=== PATIENT | male | born 1965 | race Caucasian/White ===

== ENCOUNTER 2017-11-19 21:11 | Emergency (ER) | payer OTHER ==
--- NOTE | 2017-11-19 22:32 | ED ---
Back Pain HPI - General Chief Complaint: Back Pain/Injury Stated Complaint: Back Pain Time Seen by Provider: 11/19/17 22:02 Source: patient Limitations: no limitations - History of Present Illness Initial Comments: 52-year-old male patient presents to the emergency department today with complaints of right lower back pain with radiation down the right leg. Patient states that the pain started around the end of September. He states that he was seen in urgent care on 10/23/2017 and diagnosed with a lipoma to the right lower back. He states that the urgent care physician told him that this presses on his sciatic nerve and he would have to have surgery. He states that he has been taking naproxen for pain control however it is not helping. Patient states he has basically been in bed for the last week due to the pain. He states that he was standing up at the sink today and the pain was so bad that he nearly fell. He denies any numbness or tingling in the lower extremities. Denies any saddle anesthesia. Denies any loss of bowel or bladder control. He states he does have an appointment with his primary care physician on 11/22/2017. Patient denies any recent rash, fever, chills, shortness breath, chest pain, abdominal pain, nausea, vomiting, diarrhea, constipation, dizziness, weakness, hematuria, dysuria, urinary urgency, urinary frequency, headache, visual changes, or any other complaints. - Related Data Previous Rx's Medication Instructions Recorded Cyclobenzaprine [Flexeril] 10 mg PO TID #15 tab 11/19/17 Hydrocodone/Acetaminophen [[place] 1 tab PO Q6HR PRN #15 tab 11/19/17 5-325] Allergies Allergy/AdvReac Type Severity Reaction Status Date / Time No Known Allergies Allergy Verified 11/19/17 22:33 Review of Systems ROS Statement: Those systems with pertinent positive or pertinent negative responses have been documented in the HPI. ROS Other: All systems not noted in ROS Statement are negative. Past Medical History Past Medical History: No Reported History History of Any Multi-Drug Resistant Organisms: None Reported Past Surgical History: No Surgical Hx Reported Past Psychological History: No Psychological Hx Reported Smoking Status: Current every day smoker Past Alcohol Use History: None Reported Past Drug Use History: None Reported General Exam Limitations: no limitations General appearance: alert, in no apparent distress, other (Developed, well- nourished adult male patient in no acute distress. Vital signs upon presentation were temperature 99.3F, pulse 72, respirations 16, blood pressure 145/108, pulse ox 96% on room air.) Eye exam: Present: normal appearance, PERRL, EOMI. Absent: scleral icterus, conjunctival injection, periorbital swelling Respiratory exam: Present: normal lung sounds bilaterally. Absent: respiratory distress, wheezes, rales, rhonchi, stridor Cardiovascular Exam: Present: regular rate, normal rhythm, normal heart sounds. Absent: systolic murmur, diastolic murmur, rubs, gallop, clicks GI/Abdominal exam: Present: soft, normal bowel sounds. Absent: distended, tenderness, guarding, rebound, rigid Extremities exam: Present: normal inspection, full ROM, normal capillary refill , other (In to the bilateral lower extremities is pink, warm, and dry. Cap refills less than 3 seconds. Pedal and posttibial pulses are 2+ and equal bilaterally.). Absent: tenderness, pedal edema, joint swelling, calf tenderness Back exam: Present: tenderness (Right lower back), other (There is a soft tissue mass noted to the right lower back. No skin erythema, evidence of rash or abscess.) Neurological exam: Present: alert, oriented X3, CN II-XII intact, other ( Strength in all 4 extremities is 5/5.) Psychiatric exam: Present: normal affect, normal mood Skin exam: Present: warm, dry, intact, normal color. Absent: rash Course Vital Signs 11/19/17 11/19/17 21:19 22:41 Temperature 99.3 F 98.7 F Pulse Rate 72 57 L Respiratory 16 18 Rate Blood Pressure 145/108 103/66 O2 Sat by Pulse 96 96 Oximetry Medical Decision Making - Medical Decision Making 52-year-old male patient presents to the emergency department today for evaluation of lower back pain with radiation down the right leg. Physical examination did reveal soft tissue mass to the right lower back. Patient is aware of this and it does have an appointment with his primary care physician for evaluation on 11/22/2017. She does have good strength in his lower extremities. Neurovascular status is intact. He denied any loss of bowel or bladder control, numbness, tingling, or saddle anesthesia. Vital signs are stable. Patient will be discharged with pain medication for sciatica. Both [place] and Flexril. He is instructed to continue his naproxen. He is instructed to follow-up with his doctor as he has scheduled. He is instructed to return here immediately for any new, worsening, or concerning symptoms. He verbalizes understanding and agrees with this plan. Disposition Clinical Impression: Acute low back pain, Soft tissue mass Disposition: HOME SELF-CARE Condition: Good Instructions: Acute Low Back Pain (ED), Soft Tissue Mass (ED) Additional Instructions: Take medications as directed. Follow-up with your primary care physician as you have planned for further evaluation of the mass. Application of warm moist heat to the lower back. Return here immediately for any new, worsening, or concerning symptoms. Prescriptions: Cyclobenzaprine [Flexeril] 10 mg PO TID #15 tab Hydrocodone/Acetaminophen [[place] 5-325] 1 tab PO Q6HR PRN #15 tab PRN Reason: Pain Referrals: None,Stated [Primary Care Provider] - 1-2 days Time of Disposition: 22:32
[2017-11-19 22:43] VITALS: BP 103/66; PULSE 57; RESP 18; TEMP 98.7
== END 2017-11-19 22:41 | disposition home or self-care (01) ==
LOC: EC 21:11
DX: M54.5 Low back pain (principal); R22.2 Localized swelling, mass and lump, trunk; F17.200 Nicotine dependence, unspecified, uncomplicated
CPT/HCPCS: 99283

== ENCOUNTER 2017-12-10 07:45 | Day surgery (SDC) | payer OTHER ==
[2017-11-29 15:45] VITALS: BMI 25.0
[2017-12-10] MEDS: LACTATED RINGERS 1,000 ML IV SCH ×2 (07:35→08:00)
[~2017-12-10 07:45] MED LIST: DEXAMETHASONE SOD PHOSPHATE 10 MG/ML 1 ML VIAL IV ONE; HEPARIN SODIUM,PORCINE 5,000 UNIT/ML 1 ML VIAL SQ ONE; MIDAZOLAM 2 MG/2 ML VIAL IV PRN; MORPHINE SULFATE 4 MG/ML SYRINGE IV PRN; ONDANSETRON 4 MG/2 ML VIAL IVP ONE; Pre Op ABX Message 1 EACH MISC MISCELLANE ONE; SCOPOLAMINE 1.5MG/72HR PATCH TRANSDERM ONE; ceFAZolin IN SWFI 2 GM/20 ML SYRINGE IVP ONE
--- NOTE | 2017-12-10 07:58 | P.GSHP ---
History of Present Illness H&P Date: 12/10/17 Chief Complaint: Right Buttock lipoma 's is a 52-year-old male said complaints of a right buttock mass. Patient was seen in the office and found to have a 5 cm lipoma over his mid right buttock. The patient has had complaints of chronic hip and leg pain. I discussed with him that I do not think lipomas causing his hip and leg pain. Patient does have some tenderness over the mass when he sits. Past Medical History Past Medical History: No Reported History, Prostate Disorder History of Any Multi-Drug Resistant Organisms: None Reported Past Surgical History: No Surgical Hx Reported Past Anesthesia/Blood Transfusion Reactions: Unable to Obtain Smoking Status: Current every day smoker - Past Family History Mother Family Medical History: Cancer Medications and Allergies Home Medications Medication Instructions Recorded Confirmed Type Cyclobenzaprine [Flexeril] 10 mg PO TID #15 tab 11/19/17 12/10/17 Rx Hydrocodone/Acetaminophen [[place] 1 tab PO Q6HR PRN #15 tab 11/19/17 12/10/17 Rx 5-325] Naproxen [Naprosyn] 500 mg PO Q12HR 11/29/17 12/10/17 History Tamsulosin [Flomax] 0.4 mg PO DAILY 11/29/17 12/10/17 History Allergies Allergy/AdvReac Type Severity Reaction Status Date / Time No Known Allergies Allergy Verified 12/10/17 07:27 Surgical - Exam Vital Signs Temp Pulse Resp BP Pulse Ox 97.7 F 68 16 112/76 95 12/10/17 07:23 12/10/17 07:23 12/10/17 07:23 12/10/17 07:23 12/10/17 07:23 - General well developed, no distress - Eyes PERRL - ENT normal pinna - Neck no masses - Respiratory normal expansion - Cardiovascular Rhythm: regular - Abdomen Abdomen: soft, non tender - Integumentary I centimeter lipoma over her right buttock Assessment and Plan Assessment: Right buttock lipoma. We'll perform excision.
[2017-12-10] MEDS ORDERED: KETAMINE 10 MG/ML 20 ML VIAL ONE (08:02)
[2017-12-10] MEDS ORDERED: fentaNYL (PF) 50 MCG/ML 2 ML AMP ONE (08:02)
[2017-12-10] MEDS ORDERED: PROPOFOL 10 MG/ML 20 ML VIAL IV ONE (08:02)
[2017-12-10] MEDS ORDERED: MIDAZOLAM 2 MG/2 ML VIAL ONE (08:02)
[2017-12-10] MEDS ORDERED: BUPIVACAINE-EPI 0.5%-1:200,000 10 ML VIAL SQ ONE ×5 (08:13→08:24)
[2017-12-10] MEDS ORDERED: SODIUM CHLORIDE 0.9% 50 ML with ceFAZolin 2,000 MG IV ONE ×2 (08:14)
[2017-12-10 08:48] VITALS: TEMP 98.1
[2017-12-10 09:19] VITALS: RESP 18
--- NOTE | 2017-12-10 09:44 | P.OP ---
Date of Procedure: 12/10/17 Preoperative Diagnosis: Right buttock lipoma Postoperative Diagnosis: Right Buttock lipoma Procedure(s) Performed: Excision of right buttock lipoma Anesthesia: MAC Surgeon: Allan Randall Estimated Blood Loss (ml): 3 Pathology: other (Right buttock lipoma) Condition: stable Disposition: PACU Description of Procedure: The patient's placed on the operating table in the lateral position. He received IV sedation. His right buttock was prepped and draped usual fashion. Using 1% local Xylocaine skin was anesthetized. Next using a 15 blade the skin was incised and then using cautery the subcutaneous tissue divided. The lipoma was visualized. The lipoma was dissected using cautery. The lipoma measured approximately 5 x 2 x 3 cm in size. The Bovie was used hemostasis. Skin was closed interrupted 3-0 Monocryl suture. Dermabond was applied. Patient was sent to recovery room stable condition.
[2017-12-10 09:52] VITALS: BP 113/76; PULSE 67
== END 2017-12-10 10:10 | disposition home or self-care (01) ==
LOC: OR 07:45
PROVIDERS: ATTEND Surgery
DX: D17.1 Benign lipomatous neoplasm of skin and subcutaneous tissue of trunk (principal); N42.9 Disorder of prostate, unspecified; Z79.1 Long term (current) use of non-steroidal anti-inflammatories (NSAID); Z79.899 Other long term (current) drug therapy
CPT/HCPCS: 88304; 11406; J2250; J1644; J1100; J2405; J3010; J0690; J2704

== ENCOUNTER 2017-12-24 14:28 | Emergency (ER) | payer OTHER ==
[2017-12-24] MEDS ORDERED: CEPHALEXIN 500 MG CAP PO STA (18:05)
--- NOTE | 2017-12-24 18:05 | ED ---
Recheck HPI - General Chief Complaint: Recheck/Abnormal Lab/Rx Stated Complaint: post op incision open Time Seen by Provider: 12/24/17 17:45 Source: patient Mode of arrival: ambulatory Limitations: no limitations - History of Present Illness Initial Comments: 52-year-old male patient presented to the emergency department today for evaluation of his surgical incision site. Patient underwent removal of a lipoma from the right lower back on 12/10/[address] Randall. Patient states that since the surgery he has had a lot of swelling and pain to the area. Patient states that he saw Dr. Randall on Sunday, he removed some fluid from the area, patient reports this did not help. Patient states today he walked around without his crutches for a short time, states that the incision site opened it has been draining a small amount of bloody drainage. Patient states he has been taking naproxen at home for pain, states this is not helping. He states that the rest his leg feels tight however denies any numbness or tingling. Denies any fevers or chills. Denies any difficulty with urination or bowel movements. Patient denies any recent rash, shortness breath , chest pain, abdominal pain, nausea, vomiting, diarrhea, constipation, numbness , tingling, dizziness, weakness, hematuria, dysuria, urinary urgency, urinary frequency, headache, visual changes, or any other complaints. - Related Data Home Medications Medication Instructions Recorded Confirmed Naproxen [Naprosyn] 500 mg PO Q12HR 11/29/17 12/24/17 Tamsulosin [Flomax] 0.4 mg PO DAILY 11/29/17 12/24/17 Previous Rx's Medication Instructions Recorded Cyclobenzaprine [Flexeril] 10 mg PO TID #15 tab 11/19/17 Hydrocodone/Acetaminophen [[place] 1 tab PO Q6HR PRN #15 tab 11/19/17 5-325] Cephalexin [Keflex] 500 mg PO Q6H #40 cap 12/24/17 Hydrocodone/Acetaminophen [[place] 1 tab PO Q6HR PRN #24 tab 12/24/17 5-325] Allergies Allergy/AdvReac Type Severity Reaction Status Date / Time No Known Allergies Allergy Verified 12/24/17 17:49 Review of Systems ROS Statement: Those systems with pertinent positive or pertinent negative responses have been documented in the HPI. ROS Other: All systems not noted in ROS Statement are negative. Past Medical History Past Medical History: No Reported History, Prostate Disorder History of Any Multi-Drug Resistant Organisms: None Reported Past Surgical History: No Surgical Hx Reported Additional Past Surgical History / Comment(s): right hip tumor removed Past Anesthesia/Blood Transfusion Reactions: Unable to Obtain Past Psychological History: No Psychological Hx Reported Smoking Status: Current every day smoker Past Alcohol Use History: None Reported Past Drug Use History: None Reported - Past Family History Mother Family Medical History: Cancer General Exam Limitations: no limitations General appearance: alert, in no apparent distress, other (This is a well- developed, well-nourished male patient in no acute distress. Vital signs upon presentation are temperature 98.0F, pulse 73, respirations 20, blood pressure 146/101, pulse ox 98% on room air.) Eye exam: Present: normal appearance, PERRL, EOMI. Absent: scleral icterus, conjunctival injection, periorbital swelling ENT exam: Present: normal exam, normal oropharynx, mucous membranes moist Respiratory exam: Present: normal lung sounds bilaterally. Absent: respiratory distress, wheezes, rales, rhonchi, stridor Cardiovascular Exam: Present: regular rate, normal rhythm, normal heart sounds. Absent: systolic murmur, diastolic murmur, rubs, gallop, clicks GI/Abdominal exam: Present: soft, normal bowel sounds. Absent: distended, tenderness, guarding, rebound, rigid Extremities exam: Present: full ROM, tenderness (Surrounding a surgical incision site. ), normal capillary refill, other (Right lower back surgical incision site is approximated, small amount of bloody drainage. No surrounding erythema. No evidence of purulent drainage. Skin is pink, warm, and dry. ). Absent: normal inspection, pedal edema, joint swelling, calf tenderness Neurological exam: Present: alert, oriented X3, CN II-XII intact Psychiatric exam: Present: normal affect, normal mood, agitated Skin exam: Present: warm, dry, intact, normal color. Absent: rash Course Vital Signs 12/24/17 12/24/17 16:34 18:15 Temperature 98.0 F 98.4 F Pulse Rate 73 72 Respiratory 20 16 Rate Blood Pressure 146/101 136/92 O2 Sat by Pulse 98 100 Oximetry Medical Decision Making - Medical Decision Making 52-year-old male patient presented to the emergency department today for evaluation of a surgical site. Physical examination reveals an approximated incision to the right lower back, surrounding swelling. No erythema or evidence of infection. My attending Dr. Barragan did speak to the surgeon Dr. Randall who recommends starting antibiotics and pain medication area and he also instructed the patient to follow-up in the office in the next week. He is instructed to take medications as directed. Follow-up with his surgeon. Instructed to return here immediately for any new, worsening, or concerning symptoms. He verbalizes understanding and agrees with this plan. Disposition Clinical Impression: Post-operative pain Disposition: HOME SELF-CARE Condition: Good Instructions: Acute Wound Care (ED) Additional Instructions: Rest. Take medications as directed. Follow-up with Dr. Randall within the next week. Return here immediately for any new, worsening, or concerning symptoms. Prescriptions: Cephalexin [Keflex] 500 mg PO Q6H #40 cap Hydrocodone/Acetaminophen [[place] 5-325] 1 tab PO Q6HR PRN #24 tab PRN Reason: Pain Referrals: Coretta Dhaliwal MD [Primary Care Provider] - 1-2 days Allan Randall MD [STAFF PHYSICIAN] - 1-2 days Time of Disposition: 18:07
[2017-12-24] MEDS ORDERED: HYDROcodone/APAP 5-325MG 1 EACH TAB PO STA (18:06)
[2017-12-24 18:16] VITALS: BP 136/92; PULSE 72; RESP 16; TEMP 98.4
== END 2017-12-24 18:52 | disposition home or self-care (01) ==
LOC: EC 14:28
DX: G89.18 Other acute postprocedural pain (principal); T81.89XA Other complications of procedures, not elsewhere classified, initial encounter; R45.1 Restlessness and agitation; N42.9 Disorder of prostate, unspecified; F17.200 Nicotine dependence, unspecified, uncomplicated; Z79.1 Long term (current) use of non-steroidal anti-inflammatories (NSAID); Z79.899 Other long term (current) drug therapy
CPT/HCPCS: 99283

== ENCOUNTER 2018-02-16 10:47 | Emergency (ER) | payer OTHER ==
[2018-02-16 11:05] VITALS: RESP 18; TEMP 97.5
--- NOTE | 2018-02-16 12:17 | ED ---
General Adult HPI - General Chief complaint: Extremity Injury, Lower Stated complaint: rt hip/buttocks pain Time Seen by Provider: 02/16/18 11:52 Source: patient, RN notes reviewed Mode of arrival: ambulatory Limitations: no limitations - History of Present Illness Initial comments: 52-year-old male presents for pain to the right buttock area that extends down the leg with any straightening or pressure put onto the right leg. He has a history of sciatic Feeling much like that at this time. He states that there is been no nausea or vomiting with this. He denies any loss of bowel or bladder function. Patient hasn't had any fever or chills. He states that due to the shooting pain he thought that he should be seen. He has a history of a lipoma removed from this area . Push on his sciatic sciatic nerve that caused similar like symptoms. Patient denies any recent fever, chills, shortness of breath, chest pain, abdominal pain, nausea vomiting, numbness or tingling, dysuria or hematuria, constipation or diarrhea, headaches or visual changes, or any other current symptoms. - Related Data Home Medications Medication Instructions Recorded Confirmed Naproxen [Naprosyn] 500 mg PO Q12HR 11/29/17 01/30/18 Tamsulosin [Flomax] 0.4 mg PO DAILY 11/29/17 01/30/18 Previous Rx's Medication Instructions Recorded Cephalexin [Keflex] 500 mg PO Q6H #40 cap 12/24/17 Hydrocodone/Acetaminophen [[place] 1 tab PO Q6HR PRN #24 tab 12/24/17 5-325] Naproxen [Naprosyn] 500 mg PO Q12HR #20 tab 02/16/18 predniSONE 50 mg PO DAILY #5 tab 02/16/18 Allergies Allergy/AdvReac Type Severity Reaction Status Date / Time No Known Allergies Allergy Verified 02/16/18 11:03 Review of Systems ROS Statement: Those systems with pertinent positive or pertinent negative responses have been documented in the HPI. ROS Other: All systems not noted in ROS Statement are negative. Past Medical History Past Medical History: Prostate Disorder Additional Past Medical History / Comment(s): LYPOMA RT BUTTOCKS History of Any Multi-Drug Resistant Organisms: None Reported Past Surgical History: No Surgical Hx Reported Additional Past Surgical History / Comment(s): right hip tumor removed Past Anesthesia/Blood Transfusion Reactions: Unable to Obtain Past Psychological History: No Psychological Hx Reported Smoking Status: Current every day smoker Past Alcohol Use History: None Reported Past Drug Use History: None Reported - Past Family History Mother Family Medical History: Cancer General Exam Limitations: no limitations General appearance: alert, in no apparent distress ENT exam: Present: normal exam, mucous membranes moist Neck exam: Present: normal inspection. Absent: tenderness, meningismus, lymphadenopathy Respiratory exam: Present: normal lung sounds bilaterally. Absent: respiratory distress, wheezes, rales, rhonchi, stridor Cardiovascular Exam: Present: regular rate, normal rhythm, normal heart sounds. Absent: systolic murmur, diastolic murmur, rubs, gallop, clicks Back exam: Present: normal inspection, full ROM, tenderness (SI joint), other ( Positive straight leg raise on the right). Absent: paraspinal tenderness, vertebral tenderness Neurological exam: Present: alert, oriented X3 Psychiatric exam: Present: normal affect, normal mood Skin exam: Present: warm, dry, intact, normal color. Absent: rash Course Vital Signs 02/16/18 11:03 Temperature 97.5 F L Pulse Rate 69 Respiratory 18 Rate Blood Pressure 132/88 O2 Sat by Pulse 94 L Oximetry Medical Decision Making - Medical Decision Making 52-year-old male presents with suspicion for what appears to be sciatica. We will start him on steroids and anti-inflammatories for home. We did give him injections here. We did discuss follow-up we discussed return parameters all questions. Patient stated that he understood and he is agreement this plan. All questions have been answered. He will be discharged home. Disposition Clinical Impression: Sciatica, right side Disposition: HOME SELF-CARE Condition: Stable Instructions: Lower Back Exercises (ED), Sciatica (ED) Additional Instructions: Please use medication as discussed. Please follow up with family doctor if symptoms have not improved over the next two days. Please return to the emergency room if your symptoms increase or worsen or for any other concerns. Prescriptions: Naproxen [Naprosyn] 500 mg PO Q12HR #20 tab predniSONE 50 mg PO DAILY #5 tab Referrals: Coretta Dhaliwal MD [Primary Care Provider] - 1-2 days Time of Disposition: 12:16
[2018-02-16] MEDS ORDERED: methylPREDNISolone SOD SUCCI 125 MG/2 ML VIAL IM STA (12:25)
[2018-02-16] MEDS ORDERED: KETOROLAC 60 MG/2 ML VIAL IM STA (12:25)
[2018-02-16 12:49] VITALS: BP 130/78; PULSE 70
== END 2018-02-16 12:47 | disposition home or self-care (01) ==
LOC: EC 10:47
DX: M54.31 Sciatica, right side (principal); N42.9 Disorder of prostate, unspecified; F17.200 Nicotine dependence, unspecified, uncomplicated; Z98.890 Other specified postprocedural states; Z79.1 Long term (current) use of non-steroidal anti-inflammatories (NSAID); Z79.899 Other long term (current) drug therapy
CPT/HCPCS: 99283; 96372 ×2; J2930; J1885

== ENCOUNTER → 2018-02-19 | Outpatient (CLI) | payer OTHER ==
--- NOTE | 2018-02-20 07:28 | MR ---
EXAMINATION TYPE: MR lumbar spine wo con DATE OF EXAM: 02/19/2018 COMPARISON: NONE HISTORY: Low back pain, with numbness mostly right leg TECHNIQUE: Multiplanar, multisequence images of the lumbar spine were acquired. FINDINGS: Lumbar vertebral bodies maintain normal vertebral body height and alignment. Mild degenerative endpla te changes are seen of the anterior inferior endplate of L1. T2/T1 hyperintense vertebral body rick iomas are present at T12 and L3. Multilevel intervertebral disc desiccation is noted. Conus medullari s is unremarkable terminating at L1. L1-L2: There is a small broad-based disc bulge without neural foraminal narrowing or spinal canal lewis nosis. L2-L3: There is a broad-based disc bulge and facet arthropathy resulting in minimal neural foraminal narrowing bilaterally without spinal canal stenosis. L3-L4: A broad-based disc bulge is present without focal protrusion. This results in minimal bilatera l neural foraminal narrowing, right slightly greater than left, in combination with mild facet arthro krystina. No spinal canal stenosis. L4-L5: There is a broad-based disc bulge and facet arthropathy resulting in mild to moderate bilatera l neural foraminal narrowing and mild spinal canal stenosis. No focal disc herniation. L5-S1: There is a small broad-based disc bulge without focality. No neural foraminal narrowing or spi nal canal stenosis. IMPRESSION: 1. No evidence of focal disc herniation. 2. Multilevel mild to moderate degenerative disc disease resulting in moderate bilateral neural dang inal narrowing at L4-L5 and mild spinal canal stenosis at this level. Degenerative disc disease also results in minimal bilateral neural foraminal narrowing at L2-L3 and L3-L4.
== END | disposition home or self-care (01) ==
LOC: RADMRIMAIN 20:54
PROVIDERS: ATTEND Family Medicine
DX: M99.73 Connective tissue and disc stenosis of intervertebral foramina of lumbar region (principal); M48.061 Spinal stenosis, lumbar region without neurogenic claudication; M51.36 Other intervertebral disc degeneration, lumbar region
CPT/HCPCS: 72148

== ENCOUNTER → 2018-04-22 | Outpatient (CLI) | payer OTHER ==
--- NOTE | 2018-04-22 11:57 | US ---
EXAMINATION TYPE: US abdomen limited DATE OF EXAM: 04/22/2018 COMPARISON: NONE CLINICAL HISTORY: R10.12 Abdominal Pain LUQ, R16.1 Splenomegaly. Patient has noticed protruding left ribcage and pain, no known injury or h/o infection or fever EXAM MEASUREMENTS: Spleen: 5.3cm Left Kidney: 9.9 x 4.3 x 4.7cm 1. Spleen: imaged patient supine and RLD, no signs of enlargement seen 2. Left Kidney: wnl IMPRESSION: No sonographic evidence of splenomegaly. No left-sided hydronephrosis or nephrolithiasis.
== END | disposition home or self-care (01) ==
LOC: RADUSWWP 11:00
PROVIDERS: ATTEND Family Medicine
DX: R10.12 Left upper quadrant pain (principal)
CPT/HCPCS: 76705

== ENCOUNTER 2018-08-15 12:05 | Emergency (ER) | payer OTHER ==
[2018-08-15 12:11] VITALS: BP 131/91; PULSE 92; RESP 18; TEMP 98.1
[2018-08-15] MEDS ORDERED: ONDANSETRON 4 MG/2 ML VIAL IVP STA (12:31)
[2018-08-15] MEDS ORDERED: SODIUM CHLORIDE 0.9% 2,000 ML IV STA (12:31)
[2018-08-15] MEDS ORDERED: diphenhydrAMINE 50 MG/ML 1 ML VIAL IVP STA (12:31)
[2018-08-15] MEDS ORDERED: KETOROLAC 30 MG/ML 1 ML VIAL IVP STA (12:31)
--- NOTE | 2018-08-15 12:42 | ED ---
Abdominal Pain HPI - General Chief Complaint: Abdominal Pain Stated Complaint: Abdominal pain vomiting Time Seen by Provider: 08/15/18 12:21 Source: patient, RN notes reviewed Mode of arrival: ambulatory Limitations: no limitations - History of Present Illness Initial Comments: This a 53-year-old male presents emergency Department chief complaint abdominal pain. Patient states she's been worsening abdominal pain last few months. Patient states that he had a colonoscopy which showed diverticulitis and had been diagnosed with colitis prior. Patient states that he also had an EGD which is unremarkable. He states she's having worsening diffuse pain states is not localize. Patient states that he cannot keep anything down he's having severe diarrhea. Patient states he has no dysuria no hematuria denies any abdominal surgeries. - Related Data Home Medications Medication Instructions Recorded Confirmed Dicyclomine [Bentyl] 10 mg PO TID 08/15/18 08/15/18 Pantoprazole Sodium [Protonix] 20 mg PO DAILY 08/15/18 08/15/18 Psyllium Husk 100% [Metamucil 6 gm PO DAILY 08/15/18 08/15/18 Packet] Previous Rx's Medication Instructions Recorded Ondansetron Odt [Zofran Odt] 4 mg PO Q8HR PRN #10 tab 08/15/18 Allergies Allergy/AdvReac Type Severity Reaction Status Date / Time No Known Allergies Allergy Verified 08/15/18 12:40 Review of Systems ROS Statement: Those systems with pertinent positive or pertinent negative responses have been documented in the HPI. ROS Other: All systems not noted in ROS Statement are negative. Past Medical History Past Medical History: Prostate Disorder Additional Past Medical History / Comment(s): abdominal carmps from rx, pain lower back and rt leg/hip, History of Any Multi-Drug Resistant Organisms: None Reported Past Surgical History: No Surgical Hx Reported Additional Past Surgical History / Comment(s): LYPOMA RT BUTTOCKS/hip removed, Past Anesthesia/Blood Transfusion Reactions: No Reported Reaction Past Psychological History: No Psychological Hx Reported Smoking Status: Current every day smoker Past Alcohol Use History: None Reported Past Drug Use History: None Reported - Past Family History Mother Family Medical History: Cancer General Exam Limitations: no limitations General appearance: alert, in no apparent distress Head exam: Present: atraumatic, normocephalic, normal inspection Neck exam: Present: normal inspection, full ROM. Absent: tenderness, meningismus, lymphadenopathy Respiratory exam: Present: normal lung sounds bilaterally. Absent: respiratory distress, wheezes, rales, rhonchi, stridor Cardiovascular Exam: Present: regular rate, normal rhythm, normal heart sounds. Absent: systolic murmur, diastolic murmur, rubs, gallop, clicks GI/Abdominal exam: Present: soft, tenderness (Diffuse [id number]), normal bowel sounds. Absent: distended, guarding, rebound, rigid Back exam: Absent: CVA tenderness (R), CVA tenderness (L) Skin exam: Present: warm, dry, intact, normal color. Absent: rash Course Vital Signs 08/15/18 12:09 Temperature 98.1 F Pulse Rate 92 Respiratory 18 Rate Blood Pressure 131/91 O2 Sat by Pulse 97 Oximetry Medical Decision Making - Medical Decision Making 53-year-old male presents emergency from for diffuse abdominal pain. Patient states has been ongoing pain hadn't colostomy which showed evidence of diverticulosis. Patient had CT which is actually diverticulitis time. Patient' s laboratory unremarkable. Patient's follow-up with GI. Patient has not been taken his mental and initial as directed at home. He is advised to continue taking this. Patient we given Zofran for his nausea vomiting. - Lab Data Result diagrams: 08/15/18 12:44 08/15/18 12:44 Lab Results 08/15/18 08/15/18 08/15/18 Range/Units 12:44 12:44 13:45 WBC 7.6 (3.8-10.6) k/uL RBC 5.23 (4.30-5.90) m/uL Hgb 16.0 (13.0-17.5) gm/dL Hct 49.4 (39.0-53.0) % MCV 94.5 (80.0-100.0) fL MCH 30.5 (25.0-35.0) pg MCHC 32.3 (31.0-37.0) g/dL RDW 13.4 (11.5-15.5) % Plt Count 294 (150-450) k/uL Neutrophils % 59 % Lymphocytes % 28 % Monocytes % 8 % Eosinophils % 2 % Basophils % 1 % Neutrophils # 4.5 (1.3-7.7) k/uL Lymphocytes # 2.1 (1.0-4.8) k/uL Monocytes # 0.6 (0-1.0) k/uL Eosinophils # 0.1 (0-0.7) k/uL Basophils # 0.1 (0-0.2) k/uL Sodium 139 (137-145) mmol/L Potassium 4.9 (3.5-5.1) mmol/L Chloride 103 (98-107) mmol/L Carbon Dioxide 24 (22-30) mmol/L Anion Gap 12 mmol/L BUN 25 H (9-20) mg/dL Creatinine 1.03 (0.66-1.25) mg/dL Est GFR (CKD-EPI)AfAm >90 (>60 ml/min/1.73 sqM) Est GFR (CKD-EPI)NonAf 82 (>60 ml/min/1.73 sqM) Glucose 101 H (74-99) mg/dL Plasma Lactic Acid Dc 0.7 (0.7-2.0) mmol/L Calcium 10.1 (8.4-10.2) mg/dL Total Bilirubin 1.3 (0.2-1.3) mg/dL AST 50 (17-59) U/L ALT 61 (21-72) U/L Alkaline Phosphatase 65 (38-126) U/L Total Protein 8.6 H (6.3-8.2) g/dL Albumin 4.8 (3.5-5.0) g/dL Amylase 92 (30-110) U/L Lipase 82 (23-300) U/L Disposition Clinical Impression: Abdominal pain, Nausea vomiting and diarrhea Disposition: HOME SELF-CARE Condition: Stable Instructions: Abdominal Pain (ED) Additional Instructions: Please return to the Emergency Department if symptoms worsen or any other concerns. Prescriptions: Ondansetron Odt [Zofran Odt] 4 mg PO Q8HR PRN #10 tab PRN Reason: Nausea Is patient prescribed a controlled substance at d/c from ED?: No Referrals: Coretta Dhaliwal MD [Primary Care Provider] - 1-2 days Time of Disposition: 14:28
[2018-08-15 13:05] LABS: Basophils # (A) 0.1 k/uL (0-0.2); Basophils % (A) 1 %; Eosinophils # (A) 0.1 k/uL (0-0.7); Eosinophils % (A) 2 %; HCT 49.4 % (39.0-53.0); Lymphocytes # (A) 2.1 k/uL (1.0-4.8); Lymphocytes % (A) 28 %; MCH 30.5 pg (25.0-35.0); MCHC 32.3 g/dL (31.0-37.0); MCV 94.5 fL (80.0-100.0); Mean Platelet Volume 6.7; Monocytes # (A) 0.6 k/uL (0-1.0); Monocytes % (A) 8 %; Neutrophils # (A) 4.5 k/uL (1.3-7.7); Neutrophils % (A) 59 %; Platelet Count 294 k/uL (150-450); RBC 5.23 m/uL (4.30-5.90); RDW 13.4 % (11.5-15.5); WBC 7.6 k/uL (3.8-10.6)
[2018-08-15 13:13] LABS: ALT 61 U/L (21-72); AST 50 U/L (17-59); Albumin 4.8 g/dL (3.5-5.0); Alkaline Phosphatase 65 U/L (38-126); Amylase 92 U/L (30-110); Anion Gap 12 mmol/L; Blood Urea Nitrogen 25 mg/dL (9-20); Calcium 10.1 mg/dL (8.4-10.2); Carbon Dioxide 24 mmol/L (22-30); Chloride 103 mmol/L (98-107); Glucose 101 mg/dL (74-99); Lipase 82 U/L (23-300); Sodium 139 mmol/L (137-145); Total Bilirubin 1.3 mg/dL (0.2-1.3); Total Protein 8.6 g/dL (6.3-8.2)
[2018-08-15 13:14] LABS: Potassium 4.9 mmol/L (3.5-5.1)
--- NOTE | 2018-08-15 14:15 | CT ---
EXAMINATION TYPE: CT abdomen pelvis w con DATE OF EXAM: 08/15/2018 COMPARISON: None INDICATION: abdominal pain DLP: 382.1 mGycm, Automated exposure control for dose reduction was used. CONTRAST: 100mL mL of Isovue 300. Study performed without Oral Contrast TECHNIQUE: Axial images were obtained from above the diaphragm to the pubic rami in the axial plane a t 5 mm thick sections. Reconstructed images are reviewed on the computer in the coronal plane. FINDINGS: Limited CT sections are obtained the lung bases. There is mild compressive atelectasis within the de pendent portions of the lung bases bilaterally.. CT ABDOMEN: Liver: Normal Spleen: Normal Pancreas: Normal Adrenal glands: The adrenal glands are normal. Gallbladder: Normal Kidneys: No masses are evident. No hydronephrosis is present. No cysts are present. Delayed images were obtained through the kidneys, which remain unremarkable. Aorta: Vascular calcification is within the aorta. Inferior vena cava: Normal. CT PELVIS: Loops of bowel within the abdomen and pelvis are normal. Study is performed without oral contrast limiting the evaluation of bowel loops. Appendix: Not identified. Urinary bladder: Normal. Genitourinary structures: Prostate is slightly prominent Osseous structures: There are scattered punctate hyper densities within the right pubic symphysis lef t femoral head which could be small bone islands. Degenerative changes are within the facets and sacr oiliac joints. IMPRESSIONS: 1. No suspicious acute changes to account for abdominal pain
== END 2018-08-15 14:41 | disposition home or self-care (01) ==
LOC: EC 12:05
DX: R10.84 Generalized abdominal pain (principal); R11.2 Nausea with vomiting, unspecified; R19.7 Diarrhea, unspecified; F17.200 Nicotine dependence, unspecified, uncomplicated; Z79.899 Other long term (current) drug therapy
CPT/HCPCS: 36415; 80053; 82150; 83605; 83690; 85025; 87040; 74177; 99284; 96374; 96375 ×2; 96361 ×2; J1200; J2405; J1885

== ENCOUNTER → 2018-10-17 | Outpatient (CLI) | payer OTHER ==
--- NOTE | 2018-10-18 07:12 | US ---
EXAMINATION TYPE: US abdomen complete DATE OF EXAM: 10/17/2018 COMPARISON: NONE CLINICAL HISTORY: Hep B B19.10, Hep C R76.8. EXAM MEASUREMENTS: Liver Length: 10.7 cm Gallbladder Wall: 0.2 cm CBD: 0.2 cm Spleen: obscured by bowel gas/tight intercostal spaces Right Kidney: 9.8 x x 5.0 x 5.0 cm Left Kidney: 10.6 x 5.7 x 5.1 cm Patient had extensive midline bowel gas. Pancreas: partially obscured by bowel gas, portions visualized appear wnl Liver: wnl Gallbladder: echogenic foci, probable stones Evidence for sonographic Pompa's sign: no CBD: wnl Spleen: obscured by bowel gas/tight intercostal spaces Right Kidney: partially obscured by bowel gas, portions visualized appear wnl Left Kidney: partially obscured by bowel gas, portions visualized appear wnl Upper IVC: wnl Abd Aorta: only visualized upper portion The liver is homogenous. The intrahepatic portion of the IVC and proximal abdominal aorta are within normal limits. There is evidence of cholelithiasis. Common bile duct is unremarkable. The visuali zed portions of the pancreas are homogenous. Kidneys are symmetric and free of hydronephrosis. No r enal lesions are seen. IMPRESSION: 1. Uncomplicated cholelithiasis.
[2018-10-21 07:00] LABS: Hepatits C Virus RNA Not detected (Not detected); Hepatits C Virus RNA, Quant <12 IU/mL (<12); LOG HCV IU/mL <1.08 (<1.08)
== END | disposition home or self-care (01) ==
LOC: RADUSWWP 15:38
PROVIDERS: ATTEND Family Medicine
DX: K80.20 Calculus of gallbladder without cholecystitis without obstruction (principal); B19.10 Unspecified viral hepatitis B without hepatic coma; B19.20 Unspecified viral hepatitis C without hepatic coma
CPT/HCPCS: 36415; 76700; 87522

== ENCOUNTER → 2019-01-13 | Outpatient (CLI) | payer OTHER ==
--- NOTE | 2019-01-13 11:14 | XR ---
EXAMINATION TYPE: XR shoulder complete RT DATE OF EXAM: 01/13/2019 COMPARISON: NONE HISTORY: Pain TECHNIQUE: Three views are submitted. FINDINGS: The osseous structures are intact. There is no acute fracture or dislocation. Arthropathy of the AC joint. IMPRESSION: 1. AC joint arthropathy if there is concern for rotator cuff injury correlate with MRI.
== END | disposition home or self-care (01) ==
LOC: RADXRMAIN 10:13
PROVIDERS: ATTEND Emergency Medicine
DX: M19.011 Primary osteoarthritis, right shoulder (principal)

== ENCOUNTER → 2019-01-22 | Outpatient (CLI) | payer OTHER ==
--- NOTE | 2019-01-22 22:10 | MR ---
EXAMINATION TYPE: MR shoulder RT wo con DATE OF EXAM: 01/22/2019 COMPARISON: Right shoulder x-ray January 13, 2019. HISTORY: Strain injury with pain and difficulty raising overhead TECHNIQUE: Multiplanar, multisequence imaging of the right shoulder is performed without contrast. FINDINGS: Rotator Cuff: There is increased signal in distal supraspinatus and infraspinatus tendons. There are small focal tear involving anterior fibers of the distal supraspinatus tendon measuring [address] parasagittal image 23 x 7 mm paracoronal image 10 at the articular surface . Rotator cuff muscle bulk is preserved. Infraspinatus tendon is intact. Subscapularis tendon is intact. Acromioclavicular Joint: Moderate narrowing with mild spurring is present. There is moderate superior capsular hypertrophy. There is loss of underlying fat plane consistent with underlying impingement, correlate clinically. Glenohumeral Joint: Moderate narrowing is seen. No significant effusion is noted. No significant spur ring is appreciated. Labrum: Superior labrum shows blunting and increased signal consistent with degenerative tear paracoronal image 10. Biceps Tendon: The long head of biceps is in normal location within bicipital groove. There is diffus e increased signal extra-articular portion seen best on axial image 10 and 11 and paracoronal image 9 consistent with focal tear/tendinosis. Intra-articular portion is not well visualized. Bone marrow signal: There is suspicious for oblique low T1 signal seen best parasagittal image 21 thr ough the humeral head with some mild surrounding T2 signal. This extends near level of greater tubero sity where there is subchondral cystic change superiorly and laterally noted. Other: No additional significant abnormality is appreciated. IMPRESSION: 1. Confirmation of healing nondisplaced linear fracture through the humeral head. 2. Moderate degenerative changes glenohumeral and acromioclavicular joint as detailed above. Underlyi ng impingement suspected, correlate clinically. 3. Tendinosis distal supraspinatus and infraspinatus tendons with partial articular surface tear invo lving anterior one third fibers of the distal supraspinatus tendon noted. 4. Tendinosis/partial tear of the extracapsular portion of the long head of biceps tendon.
== END | disposition home or self-care (01) ==
LOC: RADMRIMAIN 20:57
PROVIDERS: ATTEND Emergency Medicine
DX: S42.291D Other displaced fracture of upper end of right humerus, subsequent encounter for fracture with routine healing (principal); M19.011 Primary osteoarthritis, right shoulder; M75.111 Incomplete rotator cuff tear or rupture of right shoulder, not specified as traumatic

== ENCOUNTER → 2019-03-18 | Outpatient (CLI) | payer BC, OTHER ==
[2019-03-18 11:46] LABS: Basophils # (A) 0.1 k/uL (0-0.2); Basophils % (A) 1 %; Eosinophils # (A) 0.2 k/uL (0-0.7); Eosinophils % (A) 1 %; HCT 49.3 % (39.0-53.0); HGB 15.9 gm/dL (13.0-17.5); Lymphocytes # (A) 3.7 k/uL (1.0-4.8); Lymphocytes % (A) 30 %; MCH 29.9 pg (25.0-35.0); MCHC 32.2 g/dL (31.0-37.0); MCV 92.7 fL (80.0-100.0); Mean Platelet Volume 7.1; Monocytes # (A) 0.7 k/uL (0-1.0); Monocytes % (A) 6 %; Neutrophils # (A) 7.4 k/uL (1.3-7.7); Neutrophils % (A) 60 %; Platelet Count 289 k/uL (150-450); RBC 5.32 m/uL (4.30-5.90); RDW 13.7 % (11.5-15.5); WBC 12.3 k/uL (3.8-10.6)
[2019-03-18 12:01] LABS: Potassium 4.5 mmol/L (3.5-5.1)
== END ==
LOC: LABWHC1 11:07
PROVIDERS: ATTEND Orthopaedic Surgery
DX: Z01.818 Encounter for other preprocedural examination (principal); Z01.812 Encounter for preprocedural laboratory examination
CPT/HCPCS: 36415; 80051; 85025; 93005

== ENCOUNTER 2019-03-19 06:27 | Day surgery (SDC) | payer BC, OTHER ==
--- NOTE | 2019-03-18 10:07 | HP ---
HISTORY AND PHYSICAL DATE OF SERVICE: 03/19/2019 Pablo Sanchez is a 54-year-old patient seen with progressive right shoulder pain. We discussed options. He elected to proceed with arthroscopy. Consent was obtained. PAST MEDICAL HISTORY: Benign prostatic hypertrophy. PAST SURGICAL HISTORY: Noncontributory. DAILY MEDICATIONS: 1. Flomax. 2. Trazodone. 3. Tramadol. ALLERGIES: None. SOCIAL HISTORY: He smokes cigarettes. PHYSICAL EVALUATION OF THE RIGHT SHOULDER: Flexion 60 degrees, abduction 30 degrees, external rotation is 30 degrees. Some pain and weakness. Tenderness along the anterolateral acromion and rotator cuff insertion site. Impingement is positive at 60 degrees. Drop-arm sign is positive. Distal neurovascular exam is intact. RIGHT SHOULDER RADIOGRAPHS: Revealed cystic changes of the tuberosity. MRI right shoulder revealed rotator cuff tear, labral tear, partial biceps tendon tear, evidence for previous humeral head fracture. IMPRESSION: Right shoulder rotator cuff tear with her right shoulder impingement with rotator cuff tear, labral tear and partial biceps tendon tear. PLAN: Right shoulder arthroscopy with subacromial decompression, probable arthroscopic rotator cuff repair and debridement. MMODL / IJN: [id number] /
[~2019-03-19 06:27] MED LIST changes: -HEPARIN SODIUM,PORCINE 5,000 UNIT/ML 1 ML VIAL SQ ONE; +HYDROmorphone 0.5 MG/0.5 ML SYRINGE IVP PRN; +LACTATED RINGERS 1,000 ML IV SCH; +LIDOCAINE 1% 20 ML VIAL (10MG/ML) FOR IV START INTRADERMA PRN; -MORPHINE SULFATE 4 MG/ML SYRINGE IV PRN; -Pre Op ABX Message 1 EACH MISC MISCELLANE ONE; -ceFAZolin IN SWFI 2 GM/20 ML SYRINGE IVP ONE
[2019-03-19] MEDS ORDERED: fentaNYL (PF) 50 MCG/ML 2 ML AMP IV ONE (08:00)
[2019-03-19] MEDS ORDERED: ROCURONIUM BROMIDE 10 MG/ML 10 ML VIAL IV ONE (08:21)
[2019-03-19] MEDS ORDERED: LIDOCAINE 1% INJ 10MG/ML (20 ML MDV) ONE (08:21)
[2019-03-19] MEDS ORDERED: PROPOFOL 10 MG/ML 20 ML VIAL IV ONE (08:21)
[2019-03-19] MEDS ORDERED: SUCCINYLCHOLINE CHLORIDE 100 MG/5 ML SYR IV ONE (08:21)
[2019-03-19] MEDS ORDERED: fentaNYL (PF) 50 MCG/ML 2 ML AMP ONE (08:21)
[2019-03-19] MEDS ORDERED: ROPIVACAINE 5 MG/ML 30 ML VIAL ONE (08:21)
[2019-03-19] MEDS ORDERED: LACTATED RINGERS 1,000 ML IV ONE (09:19)
--- NOTE | 2019-03-19 09:59 | P.ONQ ---
Anesthesiology Proc Note - PNB - Peripheral Nerve Block Performed Right Interscalene Single Time Out Performed: Yes Procedure Start Time: 08:00 Indication: Acute Post-Operative Pain Specifically requested for management of pain by DrSammy: Cecil Negron Sedation Type: Sedate with meaningful contact maintained Preparation: Sterile Prep Position: Supine Catheter: None Needle Types: Other (see comment) (Pajunk) Needle Size: 100mm (4") Injectate: 0.5% Ropivacaine (see comment for volume) (20cc) Blood Aspirated: No Pain Paresthesia on Injection Noted: No Resistance on Injection: Normal Events: Uneventful and Well Tolerated
[2019-03-19 10:14] VITALS: TEMP 96.8
--- NOTE | 2019-03-19 10:15 | P.OP ---
Date of Procedure: 03/19/19 Preoperative Diagnosis: Right shoulder impingement Postoperative Diagnosis: 1. Right shoulder rotator cuff tear 2. Right shoulder impingement 3. Right shoulder acromioclavicular joint osteoarthritis 4. Right shoulder superficial labral tear Procedure(s) Performed: 1. Right shoulder arthroscopic rotator cuff repair 2. Right shoulder arthroscopic subacromial decompression 3. Right shoulder arthroscopic Opal procedure 4. Right shoulder arthroscopic debridement labral tear Implants: 44.75 Arthrex swivel lock anchors Anesthesia: GETA, regional (Interscalene block) Surgeon: Cecil Negron Senior Cost Analyst #1: Robbin Hendricks Estimated Blood Loss (ml): 8 Pathology: none sent Condition: stable Disposition: PACU Indications for Procedure: 54-year-old patient seen with progressive right shoulder pain. After treatment options were discussed, he elected to proceed with arthroscopy. Operative Findings: See description of procedure Description of Procedure: Patient underwent an interscalene block by department of anesthesia for postoperative pain management. The patient was then taken to the operative suite. The patient underwent a general anesthetic by the department of anesthesia. The patient was placed into a lateral position and secured. There was appropriate padding of the bony prominence. Right shoulder was then prepped and draped in normal sterile orthopedic fashion. We placed the extremity in 10 pounds of longitudinal traction. A posterior incision was now made for a posterior working portal site. The trocar and cannula were inserted into the glenohumeral joint. Arthroscopy was initiated. Spinal needle was now inserted anteriorly, to ascertain the anterior working portal site. An incision was now made in that area, a trocar was inserted followed by a probe. There was superficial tearing of the labrum. There were mild grade 1 chondromalacia changes of the glenoid. The biceps tendon was absent. There was an obvious large rotator cuff tear visualized from glenohumeral side. I debrided that superficial labral tear down to stable tissue. Instruments now removed from the glenohumeral joint. Utilizing the posterior working portal site, the trocar and cannula were inserted into the subacromial space. Arthroscopy initiated. I made an incision 2 fingerbreadths lateral to the acromion. I introduced my trocar followed by my A rthroCare ablator. I now began ablating thick subacromial bursal tissue, which exposed the undersurface of the anterior acromion. There was diminished subacromial space. There was a very prominent anterior acromion. A motorized bur was introduced and a subacromial decompression was performed. I also excised some osteophytes off the inferior aspect of the distal clavicle. The AC joint was visualized and noted to be fairly arthritic. The motorized bur was introduced in the anterior portal site and a Opal procedure was performed without difficulty, decompressing the AC joint nicely. I turned my attention to the rotator cuff. There was a 2.5 cm rotator cuff tear. I debrided the margins getting down to stable tendon tissue. I introduced my motorized bur and abraded the footprint area, getting some petechial bleeding. I now made an accessory portal site off the lateral aspect of the acromion. I punched 2 holes medial for medial row fixation with the assistance of David SAMPSON carefully tapping the punch with a mallet as I held the punch and the camera. I now introduced both anchors into the pre-punched holes and David SAMPSON tapped them with the mallet as I held anchors and the camera. David SAMPSON now screwed the anchors in place a while I held the anchor guide and camera. All 8 limbs of suture were now passed through good bites of rotator cuff tendon. I now punched 2 holes for lateral row fixation again I held the punch and camera while David SAMPSON used a mallet to tap in the punch. We now passed sutures through both anchors and individually I introduced the anchors into the pre-punch holes I held the anchor guide in position with one hand holding the camera with the other hand while David SAMPSON tensioned the sutures and screwed in the anchors one at a time. All residual suture limbs were now clipped. We had good compression of the tendon along the entire footprint. I injected 1 mL Renue intra-articular. Instruments were now removed from the portal sites. All portal sites were approximated with nylon suture. Sterile dressings were applied followed by a shoulder immobilizer. Robbin SAMPSON assisted in this complex case. The patient was awakened, transferred to a bed, and taken to recovery in stable condition.
[2019-03-19 12:33] VITALS: BP 115/80; PULSE 55; RESP 18
== END 2019-03-19 12:52 | disposition home or self-care (01) ==
LOC: OR 06:27
PROVIDERS: ATTEND Orthopaedic Surgery
DX: M75.101 Unspecified rotator cuff tear or rupture of right shoulder, not specified as traumatic (principal); M75.41 Impingement syndrome of right shoulder; M19.011 Primary osteoarthritis, right shoulder; S43.431A Superior glenoid labrum lesion of right shoulder, initial encounter; X58.XXXA Exposure to other specified factors, initial encounter; M94.211 Chondromalacia, right shoulder; M25.711 Osteophyte, right shoulder; D29.1 Benign neoplasm of prostate; F17.210 Nicotine dependence, cigarettes, uncomplicated; K21.9 Gastro-esophageal reflux disease without esophagitis; Z79.891 Long term (current) use of opiate analgesic; Z79.899 Other long term (current) drug therapy
CPT/HCPCS: 29826; 29827; 29824; 64415; C1713 ×2; C1894; C1765; J2250; J1100; J2405; J0690; J2001; J3010; J2795; J0330; J2704

== ENCOUNTER → 2019-08-06 | Outpatient (CLI) | payer OTHER ==
--- NOTE | 2019-08-07 07:45 | MR ---
EXAMINATION TYPE: MR shoulder RT wo con DATE OF EXAM: 08/06/2019 COMPARISON: Prior MRI right shoulder January 22, 2019. Right shoulder x-ray July 30, 2019 and older x-ray January 13, 2019. HISTORY: Persistent pain with difficulty raising arm overhead despite surgery March 2019 TECHNIQUE: Multiplanar, multisequence imaging of the right shoulder is performed without contrast. FINDINGS: Rotator Cuff: Persistent marked increased signal and thickening of the distal supraspinatus tendon. I nfraspinatus tendon shows improvement in abnormal signal without tear. Interval rotator cuff surgery with artifact from surgical screws in the humeral head. Subscapularis tendon is intact. Rotator cuff muscle bulk is preserved. Acromioclavicular Joint: Interval distal clavicular resection. Distal acromion morphology is unremark able. Glenohumeral Joint: Severe glenohumeral joint effusion on current study. Persistent moderate narrowin g. Labrum: Normal superior labrum is not identified, significant tear is thought present. Biceps Tendon long head of biceps tendon is not well visualized, tear from the biceps anchor at anastacio l level is felt present on current study. Bone marrow signal: Persistent subchondral cystic change superolateral humeral head. Other: No additional significant abnormality is appreciated. IMPRESSION: 1. Interval rotator cuff surgery with persistent tendinosis/tendinopathy distal supraspinatus tendon. No recurrent tear. Improved tendinosis/tendinopathy infraspinatus tendon noted. 2. Interval distal clavicular resection. No MRI evidence for underlying impingement on current study. 3. Persistent moderate degenerative change glenohumeral joint with new large joint effusion. 4. Persistent superior labral tear with suspected new tear/dislocation of the biceps anchor. Correlat e clinically.
== END | disposition home or self-care (01) ==
LOC: RADMRIMAIN 21:30
PROVIDERS: ATTEND Orthopaedic Surgery
DX: M19.011 Primary osteoarthritis, right shoulder (principal)

== ENCOUNTER 2019-12-01 23:01 | Emergency (ER) | payer BC, OTHER ==
--- NOTE | 2019-12-01 23:42 | ED ---
Male Urogenital HPI - General Chief complaint: Urogenital Stated complaint: post op, unable to urinate Time Seen by Provider: 12/01/19 23:21 Source: patient Mode of arrival: ambulatory Limitations: no limitations - History of Present Illness Initial comments: This patient is a 54-year-old man who presents with complaint that he has not been able to urinate since he had surgery this morning. The patient complains of intense suprapubic pressure and urge to urinate. Patient states that he has not urinated since prior to his rotator cuff surgery which was earlier today. He denies history of urinary issues or previous urinary retention. Denies other complaints. MD Complaint: other -: hour(s) Location: abdomen (Suprapubic) Severity: severe (Severe) Quality: other (Pressure) Consistency: constant Improves with: none Worsens with: none recent surgery Reports: urinary retention - Related Data Home Medications Medication Instructions Recorded Confirmed Tamsulosin [Flomax] 0.4 mg PO DAILY 09/23/18 03/19/19 traZODone HCL 50 mg PO HS 09/23/18 03/19/19 HYDROcodone/APAP 5-325MG [[place] 1 tab PO Q6HR PRN 03/14/19 03/19/19 5-325] Previous Rx's Medication Instructions Recorded Famotidine [Pepcid] 20 mg PO DAILY #14 tablet 09/23/18 HYDROcodone/APAP 7.5-325MG [[place] 1 - 2 each PO Q6HR PRN #56 tab 03/19/19 7.5] Allergies Allergy/AdvReac Type Severity Reaction Status Date / Time No Known Allergies Allergy Verified 12/01/19 23:12 Review of Systems ROS Statement: Those systems with pertinent positive or pertinent negative responses have been documented in the HPI. ROS Other: All systems not noted in ROS Statement are negative. Constitutional: Denies: fever, chills Respiratory: Denies: cough, dyspnea Cardiovascular: Denies: chest pain, edema Gastrointestinal: Reports: as per HPI, abdominal pain. Denies: nausea, vomiting, diarrhea, constipation Genitourinary: Reports: other (Urinary retention). Denies: dysuria, hematuria, discharge, testicular pain, testicular mass Musculoskeletal: Denies: back pain Skin: Denies: rash Neurological: Denies: headache Past Medical History Past Medical History: GERD/Reflux, Prostate Disorder Additional Past Medical History / Comment(s): RIGHT SHOULDER PAIN. DIVERTICULITIS. Pain lower back and rt leg/hip. History of Any Multi-Drug Resistant Organisms: MRSA Date of last positivie culture/infection: 11/19/1989 MDRO Source:: RIGHT CHIN AREA Past Surgical History: No Surgical Hx Reported Additional Past Surgical History / Comment(s): LYPOMA RT BUTTOCKS/hip removed. COLONSCOPY WITH POLYP REMOVAL. Past Anesthesia/Blood Transfusion Reactions: No Reported Reaction Past Psychological History: No Psychological Hx Reported Smoking Status: Current every day smoker Past Alcohol Use History: None Reported Past Drug Use History: None Reported - Past Family History Mother Family Medical History: Cancer General Exam Limitations: no limitations General appearance: alert, in distress Head exam: Present: atraumatic, normocephalic Respiratory exam: Present: normal lung sounds bilaterally. Absent: respiratory distress, wheezes, rales, rhonchi, stridor Cardiovascular Exam: Present: normal rhythm, tachycardia, normal heart sounds. Absent: systolic murmur, diastolic murmur, rubs, gallop GI/Abdominal exam: Present: soft, guarding (Suprapubic). Absent: distended, rebound, rigid exam: Present: normal inspection Extremities exam: Present: other (Patient is in post surgical brace for right shoulder) Back exam: Present: normal inspection. Absent: CVA tenderness (R), CVA tenderness (L) Neurological exam: Present: alert Skin exam: Present: warm, dry, intact, normal color. Absent: rash Course Vital Signs 12/01/19 23:12 Temperature 98.5 F Pulse Rate 110 H Respiratory 18 Rate Blood Pressure 144/91 O2 Sat by Pulse 93 L Oximetry Disposition Clinical Impression: Urinary retention Disposition: HOME SELF-CARE Condition: Good Instructions (If sedation given, give patient instructions): Urinary Retention in Men (ED) Is patient prescribed a controlled substance at d/c from ED?: No Referrals: Coretta Dhaliwal MD [STAFF PHYSICIAN] - 1-2 days
[2019-12-02 00:33] VITALS: BP 132/56; PULSE 92; RESP 20; TEMP 98.1
== END 2019-12-02 00:33 | disposition home or self-care (01) ==
LOC: EC 23:01
DX: R33.9 Retention of urine, unspecified (principal); R10.30 Lower abdominal pain, unspecified; F17.200 Nicotine dependence, unspecified, uncomplicated; Z79.899 Other long term (current) drug therapy
CPT/HCPCS: 51702; 99283

== ENCOUNTER → 2020-07-21 | Outpatient (CLI) | payer BC ==
--- NOTE | 2020-07-21 11:46 | CT ---
EXAMINATION TYPE: CT abdomen pelvis w con DATE OF EXAM: 07/21/2020 COMPARISON: Prior CT 09/23/2018 HISTORY: Abd pain CT DLP: 440.1 mGycm Automated exposure control for dose reduction was used. TECHNIQUE: Helical acquisition of images from the lung bases through the pelvis have been completed. CONTRAST: Performed with Oral Contrast and with IV Contrast, patient injected with 100 mL of Isovue 300. FINDINGS: LUNG BASES: No significant abnormality is appreciated. AORTA: No significant abnormality is appreciated. LIVER/GB: No significant abnormality is appreciated. Periportal edema changes have improved. PANCREAS: No significant abnormality is seen. SPLEEN: No significant abnormality is seen. ADRENALS: No significant abnormality is seen. KIDNEYS: Mildly prominent collecting systems are noted which have developed in the interval. REPRODUCTIVE ORGANS: Prostate calcifications are present BOWEL: Contrast has not coursed complete within the bowel, there is no evident obstruction, retained fecal debris present in the colon. FREE AIR: No Free Air visible. ASCITES: None visible. PELVIC ADENOPATHY: None visualized. RETROPERITONEAL ADENOPATHY: No Retroperitoneal Adenopathy visible. URINARY BLADDER: Urine distended. OSSEOUS STRUCTURES: Degenerative disc disease present in the visualized spine. IMPRESSION: MILD PROMINENCE OF THE RENAL COLLECTING SYSTEMS, ETIOLOGY IS NOT DETERMINED. Additional findings abov e.
== END | disposition home or self-care (01) ==
LOC: RADCTMAIN 06:32
PROVIDERS: ATTEND Family Medicine
DX: R10.12 Left upper quadrant pain (principal); N40.0 Benign prostatic hyperplasia without lower urinary tract symptoms; R19.4 Change in bowel habit
CPT/HCPCS: 74177; Q9967 ×2

== ENCOUNTER → 2022-03-23 | Outpatient (CLI) | payer BC ==
[2022-03-23 10:20] VITALS: BP 138/89; PULSE 61; RESP 18; TEMP 97.6
--- NOTE | 2022-03-23 10:24 | P.CON ---
Consult Note - . Consult date: 03/23/22 Assessment/Plan:: HISTORY OF PRESENT ILLNESS: 57 yr old male as a referral from Dr. Banda presents today with severe and chronic cervical pain secondary to DDD, spondylosis and facet arthropathy for evaluation. Pt states his neck pain started 2 years ago due to a work-related injury. It is 9 out of 10 in intensity, dull, aching, throbbing with sharp, burning pain into his right shoulder and right upper extremity. Pain is provoked with overhead reaching. In fact, he cannot abduct his right upper extremity greater than 90. He is relieved with OTC medications which are ineffective, topicals which are ineffective, heat, physical therapy in the past, use of hot water soaks, use of a sling and elevation, repositioning and rest. Past Medical History: BPH, MDD, GERD, Carpal Tunnel Syndrome Past Surgical History: R Buttock Lypoma Resection, R Reverse Total Shoulder Arthroplasty in April 2021. R Partial RCT. Social History: Current every day smoker. Denies ETOH abuse. Family Medical History: Mother- Cancer All: NKDA Meds: See list REVIEW OF ORGAN SYSTEMS: CONSTITUTIONAL: No fevers or chills. No recent weight loss. HEENT: No visual acuity loss, eye pain, difficulties with hearing. No nosebleeds. No difficulty swallowing. RESPIRATORY: Denies any troubles with breathing or dyspnea on exertion. CARDIOVASCULAR: Denies any chest pain, palpitations, or recent heart attacks. GASTROINTESTINAL: Denies fatty food intolerance. Has change in bowel habits and gas bloat. GENITOURINARY: Denies any blood in urine. Has increased urinary frequency. NEUROLOGICAL: + numbness and tingling along the distal extremities. No seizure disorders or headaches. MUSCULOSKELETAL: + back pain SKIN: No skin cancer. No rash. PSYCHIATRIC: Denies current depression or suicidal thoughts. ENDOCRINE: Denies current thyroid disorders. Denies any blood sugar glucose intolerance. HEME/LYMPHATIC: Denies any lumps and bumps around the neck. History of deep venous thrombosis. ALLERGY/IMMUNOLOGY: No immunoglobulin therapy. No immune deficiencies. BREAST: Denies current breast lumps, pain or nipple discharge. Physical Examinations : Constitutional : Cooperative , not in acute distress . HEENT: Neck supple. No Lymphadenopathy. Normal thyroid size . Eyes no ptosis , no icterus, no photophobia . Hearing intact. Normal oropharynx. No Thrush. Respiratory : Chest clear to auscultations bilaterally. No wheezing. No rhonchi. Cardiovascular : Regular rate and rhythm , S1 / S2. No S3 . No S4. Gastrointestinal : Abdomen soft. No tenderness. Bowel sounds x 4. No organomegaly . Genitourinary : Deferred. Neurologic : Cranial nerve II to XII intact. No focal neurological deficits. Psychiatric : alert & oriented x 3. Matching mood & appropriate affect. Judgment & insight intact. Lymphatic No Lymphadenopathy. Musculoskeletal : Cervical Spine Motor strength in the deltoid and biceps: Normal right side. Normal Left side Motor strength biceps and the wrist extensors: Normal right side . Normal left side Motor strength in the triceps muscle: Normal right side. Normal left side Deep tendon reflexes: Normal at the biceps. Normal at Brachioradialis. Normal at triceps Cervical facet loading test: positive bilaterally Spurling test: positive bilaterally Neck distraction test: positive bilaterally Lupillo sign: positive bilaterally Lumbar spine Motor strength lower extremities ,thigh and legs 5/5 Right side , 5/5 Left side Deep tendon reflexes : Normal Knee Jerk. Normal Ankle Jerk Vertebral body tenderness over Lumbar facet Loading Test: positive Right / positive Left Range of motion of the lumbar spine Flexion 30 degrees, extension 10 degrees Straight Leg Raise test: Left/ Right positive at degree Johnny test: positive right / positive left. Severe tenderness over the Sacroiliac joint on the Right / Left sides Gaenslen test: positive bilaterally Seated flexion test: positive bilaterally. Imaging: Awaiting MRI without contrast of the cervical spine from [facility] MRI without contrast of the R shoulder from 08/06/19 reviewed EMG of the UEs showed C7 & C8 Radiculopathy Assessment/ Plan : Cervical Radiculopathy, R Shoulder GH Joint Effusion, R Tendinosis, R Superior Labral Tear Recommendation of R Shoulder intra articular joint injection. Risks, benefits of procedure discussed and patient verbalized understanding. Order PT 3 times per week x 6 weeks Dx Cervical Radiculopathy Prescription for [place] 10/325mg Q4h prn pain x 3 days. Dependency and tolerance discussed. Storage of medication away from children discussed, including no sharing of prescription medications or driving while under the influence. Pt acknowledged understanding. Admits to Eliquis use. Denies medical history of diabetes. Protocol for discontinuation/ continuation of medications braden procedure discussed. All questions answered. I have spent greater than 50 minutes on patient care today. Dr Negrete was available by phone for the evaluation of this patient. The time was used to review the medical records including relevant urine studies and Prescription history (MAPs), review of the available imaging, evaluation and examination of the patient, coordination of care with the medical staff and if applicable referring physicians, as well as creation of the medical record PQRS Measure Charge Sheet Mode of Arrival: Ambulatory - Pain Location Right Shoulder Non-Pharmacological Interventions: Elevation, Heat, Ice, Physical Therapy PQRS Narrative: Smoking Status Current every day smoker Blood Pressure 138/89 Pain Intensity [Right Shoulder 9 ] Scale Used Numeric (1 - 10) Hx Alcohol Use (MH) No Home Medications: Ambulatory Orders Famotidine [Pepcid] 20 mg PO DAILY #14 tablet 09/23/18 Tamsulosin [Flomax] 0.4 mg PO DAILY 09/23/18 traZODone HCL 50 mg PO HS 09/23/18 HYDROcodone/APAP 5-325MG [[place] 5-325] 1 tab PO Q6HR PRN 03/14/19 HYDROcodone/APAP 7.5-325MG [[place] 7.5-325] 1 - 2 each PO Q4HR PRN 3 Days #18 tab 03/23/22
== END ==
LOC: PNWHC3 09:11
PROVIDERS: ATTEND Specialist
DX: M54.12 Radiculopathy, cervical region (principal); M25.411 Effusion, right shoulder; S43.431A Superior glenoid labrum lesion of right shoulder, initial encounter; F17.200 Nicotine dependence, unspecified, uncomplicated
CPT/HCPCS: 99211

== ENCOUNTER → 2022-05-09 | Day surgery (SDC) | payer BC, OTHER ==
[2022-05-08 09:55] VITALS: BMI 21.9
[~2022-05-09] MED LIST changes: -DEXAMETHASONE SOD PHOSPHATE 10 MG/ML 1 ML VIAL IV ONE; -HYDROmorphone 0.5 MG/0.5 ML SYRINGE IVP PRN; +LIDOCAINE 1% (10MG/ML) FOR IV START INTRADERMA PRN; -LIDOCAINE 1% 20 ML VIAL (10MG/ML) FOR IV START INTRADERMA PRN; -MIDAZOLAM 2 MG/2 ML VIAL IV PRN; -ONDANSETRON 4 MG/2 ML VIAL IVP ONE; -SCOPOLAMINE 1.5MG/72HR PATCH TRANSDERM ONE
[2022-05-09 14:09] VITALS: BP 139/86; PULSE 57; RESP 18; TEMP 98
--- NOTE | 2022-05-09 20:54 | P.PN ---
Subjective Progress Note Date: 05/09/22 This is 57 years old male, who was scheduled to have right shoulder intra- articular steroid injection, to right shoulder pain, patient was seen in the consultation role in the preop holding area, because was concerned about the procedure today, patient reported that he had multiple steroid injection in his right shoulder without any benefit, when I explained to the patient that today I will inject to medication one of them is that the local anesthetic and the other one with intravenous steroids, he reported that he had no benefit and previous cerebral injection plus he reported that he had right shoulder arthroplasty, surgery done previously , and he continued to have severe pain and he is not able to do physical therapy secondary to the pain, he denies any fever or night sweats , denies any discharge Objective - Vital Signs Vital signs: Intake & Output 05/08/22 05/09/22 05/09/22 18:59 06:59 18:59 Weight 63.503 kg - Exam Physical Examinations : -Constitutiona : Cooperative , not in acute distress . -HEENT : nech : supple , no Lymphadenopathy , normal thyroid size . : eyes : no ptosis , no icterus, no photophobia . - neurologic : Cranial nerve II to XII intact , no focal neurological deffecit . -psychatric : alert , oriented X 3 , appropriate affect , intact judgment and insight . -Lymphatic : no Lymphadenopathy . - musculoskeltal : Limited movement of the right shoulder Significant decrease in range of motion of the right shoulder Adduction and abduction of the right shoulder is limited Cervical facet loading test positive bilaterally Imaging: Awaiting MRI without contrast of the cervical spine from [facility] MRI without contrast of the R shoulder from 08/06/19 reviewed EMG of the UEs showed C7 & C8 Radiculopathy Assessment and Plan Plan: Assessment and plan=1-right shoulder pain Patient had multiple surgical interventions on his right shoulder including the right shoulder arthroplasty Patient failed physical therapy, failed intervention pain management in the past, patient had steroid injection in the right shoulder done by the orthopedic surgeon on multiple occasions without any benefit, and patient reported that he is not willing to have more steroid injection without any benefit, and because patient was scheduled to have right shoulder steroid injection a discussed with the patient the option of trying medication management, risk and benefit of the medication discussed with the patient and he agreed with the preceding, patient signed narcotic agreement and he understood the risk of using controlled medication, patient will be started on gabapentin 300 mg daily at bedtime and increase gradually to twice a day, and patient could benefit from Celebrex 200 mg every morning dispense 30 with no refills and patient will be seen in the pain clinic in 2 weeks for reevaluation Time with Patient: Less than 30
== END ==
LOC: ORPAIN 08:25
PROVIDERS: ATTEND Specialist
DX: M25.511 Pain in right shoulder (principal); Z96.611 Presence of right artificial shoulder joint
CPT/HCPCS: 99211

== ENCOUNTER → 2022-05-25 | Outpatient (CLI) | payer OTHER, BC ==
[2022-05-25 12:42] VITALS: BP 118/81; PULSE 68; RESP 18; TEMP 98.3
--- NOTE | 2022-05-25 12:56 | P.PAINPG ---
Objective - Vital Signs Vital signs: Intake & Output 05/24/22 05/25/22 05/25/22 18:59 06:59 18:59 Weight 65.771 kg PQRS Measure Charge Sheet Comment: A 57 yr old male with a history of severe and chronic R shoulder pain secondary to arthropathy presents today for medication refills. Pain level is 10/10 in intensity, constant pressure in the R shoulder w radiation of pain towards the neck and R pectoral muscles. Has filled Celebrex and Neurontin 300mg QHS and does not need refills at this time. Will escalate to BID at next visit. Also filled [place] 7.5/325mg #60 at this time as pt was not a intra articular joint injection candidate. Pain is provoked by cold weather and positions. Pain is alleviated with PT 1 1/2 yrs which ended Nov 2021, heat, ice, medications (Neurontin, Celebrex), repositioning and rest. Interventional pain procedures completed include R shoulder intra articular injections in the past Patient is currently on Neurontin 300mg QHS, Celebrex QD. Patient denies any side effects of the medication(s), denies excessive drowsiness or sleepiness, denies suicidal ideation and reports that the current pain medication is helping to control the pain and improve activities of daily living. Patient denies any motor or sensory deficits. Patient denies any fever or night sweats, denies any change in the bowel movements or urination. Physical Examination: -Constitutional: Cooperative. Not in acute distress . - Neurologic: Cranial nerve II to XII intact. No focal neurological deficits. - Psychatric: Alert & oriented x 3. Matching mood & appropriate affect. Judgment and insight intact. - Musculoskeletal: +R shoulder GH/AC joint line TTP Cervical spine: Muscle bulk/ tone/ strength in the bilateral upper extremities normal Vertebral body tenderness to palpation over Spurling test positive Distraction test positive Facet loading test positive Thoracic spine Muscle bulk / tone/ strength in the bilateral paraspinal muscles normal Vertebral body tender to palpation over Facet loading test positive Lumbar spine: Motor bulk/ tone/ strength lower extremities , thigh and legs : 5/5 Deep tendon reflexes : Normal Knee Jerk. Normal Ankle Jerk . 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 Pt has not had success with intraarticular injections. Recommendation of MRI without contrast of the R shoulder Re: M19.019. He will follow up with his orthopedic surgeon for revision of R shoulder. Chronic and current use of high-risk medication (Opioids). The patient was counseled about risk of opioid use, psychological risk associated with opioids and was orally counseled to not overuse , divert or sell medications. Pt is to store medication in a safe location. The patient is counseled against driving while using narcotic medications and also not to use alcohol or any illicit recreational drugs. Patient verbalized understanding that the lack of compliance will result in failure to renew narcotic prescription(s) as well as possible discharge from the clinic Diagnoses, prognosis and treatment options including but not limited to physical therapy, surgical interventions, interventional therapies and medication management including narcotics and adjuvant medication were discussed. All patient questions answered MAPS reviewed and it was appropriate. Narcotic agreement form completed today 05/25/22 Prescription for [place] 7.5/325mg #60 w 1 refill. I have spent less than 30 minutes on patient care today. Dr Negrete was available by phone for the evaluation of this patient. The time was used to review the medical records including relevant urine studies and Prescription history (MAPs), review of the available imaging, evaluation and examination of the patient, coordination of care with the medical staff and if applicable referring physicians, as well as creation of the medical record - Pain Location Right Shoulder Non-Pharmacological Interventions: Heat, Ice, Physical Therapy Pharmacological Interventions: Epidural, Scheduled Medication PQRS Narrative: Smoking Status Current every day smoker Narcotic Agreement Date Signed 05/09/22 Hx Alcohol Use (MH) No Home Medications: Ambulatory Orders Famotidine [Pepcid] 20 mg PO DAILY #14 tablet 09/23/18 traZODone HCL 50 mg PO HS 09/23/18 Rivaroxaban [Xarelto] 20 mg PO DAILY 05/08/22 Celecoxib [CeleBREX] 200 mg PO DAILY 30 Days #30 cap 05/25/22 Gabapentin [Neurontin] 300 mg PO BID 30 Days #60 cap 05/25/22 HYDROcodone/APAP 7.5-325MG [[place] 7.5-325] 1 tab PO Q12H PRN 30 Days #60 tab 05/25/22 HYDROcodone/APAP 7.5-325MG [[place] 7.5-325] 1 tab PO Q12HR PRN 30 Days #60 tab 05/25/22 Controlled Substance Measures - Controlled Substance Measures Is patient prescribed a controlled substance at discharge?: Yes When asked, does pt state using other controlled substances?: No If prescribed controlled substance>3 days was MAPS reviewed?: Yes If Rx opioid, was Start Talking consent form obtained?: Yes If opioid is for acute pain is fill amount 7 days or less?: Yes Was information provided regarding opioid addiction?: Yes
== END ==
LOC: PNWHC3 12:09
PROVIDERS: ATTEND Specialist
DX: M25.511 Pain in right shoulder (principal); G89.29 Other chronic pain; Z79.891 Long term (current) use of opiate analgesic; F17.200 Nicotine dependence, unspecified, uncomplicated
CPT/HCPCS: 99211

== ENCOUNTER 2022-05-31 14:08 | Emergency (ER) | payer BC, OTHER ==
[2022-05-31 14:41] VITALS: BP 136/79; PULSE 77; RESP 16; TEMP 97.9
--- NOTE | 2022-05-31 15:02 | XR ---
EXAMINATION TYPE: XR shoulder complete RT DATE OF EXAM: 05/31/2022 CLINICAL HISTORY: pain TECHNIQUE: Three views of the right shoulder are obtained. COMPARISON: 01/13/2019 FINDINGS: Glenohumeral prosthesis noted which appears to be well seated. No evidence for fracture or dislocation. Degenerative changes AC joint. Visualized right-sided ribs are within normal limits. IMPRESSION: 1. There is no acute fracture or dislocation. ICD 10 NO FRACTURE, INITIAL EVALUATION
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
[2022-05-31] MEDS ORDERED: HYDROcodone/APAP 5-325MG 1 EACH TAB PO STA (17:06)
== END 2022-05-31 17:35 | disposition home or self-care (01) ==
LOC: EC 14:08
DX: S49.91XA Unspecified injury of right shoulder and upper arm, initial encounter (principal); F17.200 Nicotine dependence, unspecified, uncomplicated; X58.XXXA Exposure to other specified factors, initial encounter
CPT/HCPCS: 99283

== ENCOUNTER → 2022-06-20 | Outpatient (CLI) | payer BC, OTHER ==
--- NOTE | 2022-06-20 19:07 | MR ---
EXAMINATION TYPE: MR shoulder RT wo con DATE OF EXAM: 06/20/2022 COMPARISON: Prior shoulder MRI dated 08/06/2019, plain film dated 05/31/2022 HISTORY: PRIMARY OSTEOARTHRITIS, UNSPEC SHOULDER, Right shoulder pain TECHNIQUE: Multiplanar, multisequence imaging of the right shoulder is performed without contrast. FINDINGS: Extensive artifact due to patient's hardware is noted. Exam is markedly limited. Patient shows right shoulder arthroplasty. Suspect fluid signal in the subacromial subdeltoid bursa r egion. IMPRESSION: Postop changes limit the exam. There is fluid present as described.
== END | disposition home or self-care (01) ==
LOC: RADMRIMAIN 10:30
PROVIDERS: ATTEND Specialist
DX: M19.011 Primary osteoarthritis, right shoulder (principal)

== ENCOUNTER 2022-09-13 01:23 | Emergency (ER) | payer BC ==
[2022-09-13 01:41] VITALS: RESP 18
[2022-09-13] MEDS ORDERED: ORPHENADRINE 30 MG/ML 2 ML VIAL IM STA (02:30)
[2022-09-13] MEDS ORDERED: DEXAMETHASONE SOD PHOSPHATE 10 MG/ML 1 ML VIAL IM STA (02:30)
[2022-09-13] MEDS ORDERED: KETOROLAC 15 MG/ML 1 ML VIAL IM STA (02:30)
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
[2022-09-13] MEDS ORDERED: HYDROcodone/APAP 7.5-325MG 1 EACH TAB PO ONE (03:52)
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
[2022-09-13 04:18] VITALS: BP 113/88; TEMP 97.7
[2022-09-13 04:21] VITALS: PULSE 80
== END 2022-09-13 04:28 | disposition home or self-care (01) ==
LOC: EC 01:23
DX: S39.012A Strain of muscle, fascia and tendon of lower back, initial encounter (principal); X58.XXXA Exposure to other specified factors, initial encounter; Y93.39 Activity, other involving climbing, rappelling and jumping off; Y92.830 Public park as the place of occurrence of the external cause
CPT/HCPCS: 72131; 99283; 96372 ×3; J1100; J2360; J1885

== ENCOUNTER → 2023-09-18 | Outpatient (CLI) | payer BC ==
--- NOTE | 2023-09-21 10:21 | MR ---
EXAMINATION TYPE: MR cervical spine wo con DATE OF EXAM: 09/18/2023 6:29 PM CLINICAL INDICATION:Male, 58 years old with history of M54.2 Cervicalgia; PHH, Neck pain, cervicalgia COMPARISON: Radiograph 09/06/2023,. TECHNIQUE: Multi planar, multi sequence imaging was performed utilizing: T1-weighted, T2-weighted, an d turbo inversion recovery imaging of the cervical spine. IV Contrast: (none if empty) FINDINGS: Alignment: The cervical vertebral bodies have preserved heights. Alignment is within normal limits gi rika patient positioning. Bones: Scattered Modic endplate changes with osteophytes and disc space narrowing. Multilevel degener ative disc disease is noted and most pronounced at the C4-C7 vertebral levels. Cord: The spinal cord is unremarkable with regards to their signal intensity and morphology. Discs: Multilevel disc desiccation is present. C2-C3: No significant disc pathology. The spinal canal is patent. No neural foraminal stenosis. C3-C4: A disc osteophyte complex is present which minimally narrows the ventral subarachnoid space. Bilateral facet and uncovertebral joint arthropathy are present with mild right and moderate to anastasiya re left neural foraminal stenosis. C4-C5: A disc osteophyte complex is present with severe spinal canal stenosis. Bilateral facet and u ncovertebral joint arthropathy are present with moderate to severe bilateral neural foraminal stenosi s. C5-C6: A disc osteophyte complex is present with moderate to severe spinal canal stenosis. Bilateral facet and uncovertebral joint arthropathy are present with severe right and moderate to severe left neural foraminal stenosis. C6-C7: A disc osteophyte complex is present with severe spinal canal stenosis. No neural foraminal s tenosis. C7-T1: No significant disc pathology. The spinal canal is patent. No neural foraminal stenosis. Other: None. IMPRESSION: 1. Moderate to severe degeneration throughout the lower cervical spine with moderate to severe C4-C5 and C6-C7 spinal canal stenosis and moderate to severe C5-C6. Spinal cord signal is maintained. 2. Multilevel neural foraminal stenosis as described above with moderate to severe bilateral C4-C5 a nd severe right C5-C6 and moderate to severe left C3-C4 as some of the areas are the worst..
== END | disposition home or self-care (01) ==
LOC: RADMRIMAIN 16:50
PROVIDERS: ATTEND Orthopaedic Surgery
DX: M50.321 Other cervical disc degeneration at C4-C5 level (principal); M48.02 Spinal stenosis, cervical region; M99.71 Connective tissue and disc stenosis of intervertebral foramina of cervical region
CPT/HCPCS: 72141

== ENCOUNTER → 2023-10-24 | Outpatient (CLI) | payer BC ==
--- NOTE | 2023-10-24 08:29 | CT ---
EXAMINATION TYPE: CT cervical spine wo con DATE OF EXAM: 10/24/2023 COMPARISON: MRI cervical spine September 18, 2023 HISTORY: Cervicalgia CT DLP: 439.6 mGycm. Automated Exposure Control for Dose Reduction was Utilized. TECHNIQUE: CT scan of the cervical spine is obtained without contrast, axial images are obtained, sa gittal and coronal reformatted images are also reviewed. FINDINGS: Cervical spine is visualized in its entirety from C1 through upper thoracic levels, demonst rates slight grade 1 retrolisthesis C4 on C5 and C5 on C6. Prevertebral soft tissue appears within n ormal limits. The C1-C2 articulation is within normal limits on the coronal images. Vertebral body h eights are preserved. There is mild to moderate spurring and disc space narrowing C4-C5 through C6-C7 level seen. Review of axial images shows some uncovertebral facet degenerative changes on the left at C2-C3 level with mild narrowing. Axial images at C3-C4 level shows a left-sided uncovertebral facet degenerative changes along with br oad-based left paracentral disc protrusion mildly facing anterior thecal sac and causing asymmetric m oderate to severe left-sided neural foraminal narrowing. Axial images at C4-C5 level shows spondylolisthesis with posterior spur disc complex effacing anterio r thecal sac and causing mild to moderate bilateral neural foraminal narrowing. Axial images at C5-C6 level shows spondylolisthesis and broad-based right paracentral spur disc compl ex effacing the anterior thecal sac and causing moderate to severe right greater than left bilateral neural foraminal narrowing. Axial images at C6-C7 level shows broad-based left paracentral disc protrusion effacing anterior thec al sac and causing moderate bilateral neural foraminal narrowing. Axial images at C7-T1 level appear within normal limits. Thyroid gland is within normal limits. Visualized lung apices show no pneumothorax.. IMPRESSION: Minimal spondylolisthesis and degenerative change in the cervical spine is present as det sergio above.
== END | disposition home or self-care (01) ==
LOC: RADCTMAIN 06:45
PROVIDERS: ATTEND Orthopaedic Surgery
DX: M43.12 Spondylolisthesis, cervical region (principal); M47.812 Spondylosis without myelopathy or radiculopathy, cervical region
CPT/HCPCS: 72125

== ENCOUNTER 2023-10-29 09:07 | Emergency (ER) | payer BC, OTHER ==
[2023-10-29 09:25] VITALS: BP 120/82; PULSE 71; RESP 20; TEMP 98
--- NOTE | 2023-10-29 09:38 | ED ---
ENT HPI - General Chief complaint: Dental/Oral Stated complaint: Dental Pain Time Seen by Provider: 10/29/23 09:27 Source: patient, RN notes reviewed Mode of arrival: ambulatory Limitations: no limitations - History of Present Illness Initial comments: 58-year-old male presents emergency Department chief complaint abdominal pain. Patient states he has right-sided facial swelling states she has multiple bad teeth states he is trying to follow-up with the dentist. Patient denies any reported fevers chills no difficulty swallowing no ocular pain denies any visual disturbances. Patient offers no other complaints. - Related Data Home Medications Medication Instructions Recorded Confirmed traZODone HCL 50 mg PO HS 09/23/18 05/25/22 Rivaroxaban [Xarelto] 20 mg PO DAILY 05/08/22 05/25/22 Previous Rx's Medication Instructions Recorded Famotidine [Pepcid] 20 mg PO DAILY #14 tablet 09/23/18 Celecoxib [CeleBREX] 200 mg PO DAILY 30 Days #30 cap 05/25/22 Gabapentin [Neurontin] 300 mg PO BID 30 Days #60 cap 05/25/22 HYDROcodone/APAP 7.5-325MG [[place] 1 tab PO Q12H PRN 30 Days #60 tab 05/25/22 7.5-325] HYDROcodone/APAP 7.5-325MG [[place] 1 tab PO Q12HR PRN 30 Days #60 tab 05/25/22 7.5-325] Gabapentin [Neurontin] 300 mg PO BID 30 Days #60 cap 07/05/22 clindamycin HCL 300 mg PO QID #40 cap 10/29/23 Allergies Allergy/AdvReac Type Severity Reaction Status Date / Time sulfamethoxazole Allergy Rash/Hives Verified 10/29/23 09:25 [From Bactrim] trimethoprim [From Bactrim] Allergy Rash/Hives Verified 10/29/23 09:25 Review of Systems ROS Statement: Those systems with pertinent positive or pertinent negative responses have been documented in the HPI. ROS Other: All systems not noted in ROS Statement are negative. Past Medical History Past Medical History: Deep Vein Thrombosis (DVT), GERD/Reflux, Prostate Disorder Additional Past Medical History / Comment(s): RIGHT SHOULDER PAIN. DIVERTICULITIS. Pain lower back and rt leg/hip. DVT-BILAT LEGS, CHRONIC BACK ANDNECK PAIN R/T RT SHOULDER PAIN History of Any Multi-Drug Resistant Organisms: MRSA Date of last positivie culture/infection: 11/19/1989 MDRO Source:: RIGHT CHIN AREA Past Surgical History: No Surgical Hx Reported Additional Past Surgical History / Comment(s): LYPOMA RT BUTTOCKS/hip removed. COLONSCOPY WITH POLYP REMOVAL. RT ROTATOR CUFF SURGERY X 4-2019 Past Anesthesia/Blood Transfusion Reactions: No Reported Reaction Past Psychological History: No Psychological Hx Reported Smoking Status: Current every day smoker Past Alcohol Use History: None Reported Past Drug Use History: None Reported - Past Family History Mother Family Medical History: Cancer General Exam Limitations: no limitations General appearance: alert, in no apparent distress Head exam: Present: atraumatic, normocephalic, normal inspection Eye exam: Present: normal appearance, PERRL, EOMI. Absent: scleral icterus, conjunctival injection, periorbital swelling ENT exam: Present: mucous membranes moist, TM's normal bilaterally, normal external ear exam. Absent: normal oropharynx (Edentulous, no drainable abscess, right-sided facial swelling) Neck exam: Present: normal inspection, full ROM. Absent: tenderness, meningismus, lymphadenopathy Respiratory exam: Present: normal lung sounds bilaterally. Absent: respiratory distress, wheezes, rales, rhonchi, stridor Cardiovascular Exam: Present: regular rate, normal rhythm, normal heart sounds. Absent: systolic murmur, diastolic murmur, rubs, gallop, clicks Neurological exam: Present: alert Course Vital Signs 10/29/23 09:23 Temperature 98 F Pulse Rate 71 Respiratory 20 Rate Blood Pressure 120/82 O2 Sat by Pulse 96 Oximetry Medical Decision Making - Medical Decision Making Was pt. sent in by a medical professional or institution (, PA, BARREL WASHER, urgent care, hospital, or residential...) When possible be specific @ -No Did you speak to anyone other than the patient for history (EMS, parent, family, police, friend...)? What history was obtained from this source @ -No Did you review nursing and triage notes (agree or disagree)? Why? @ -I reviewed and agree with nursing and triage notes Were old charts reviewed (outside hosp., previous admission, EMS record, old EKG, old radiological studies, urgent care reports/EKG's, residential records)? Report findings @ -No old charts were reviewed Differential Diagnosis (chest pain, altered mental status, abdominal pain women, abdominal pain men, vaginal bleeding, weakness, fever, dyspnea, syncope, headache, dizziness, GI bleed, back pain, seizure, CVA, palpatations, mental health, musculoskeletal)? @ -Dental abscess, dental infection, toothache dental caries EKG interpreted by me (3pts min.). @ -None X-rays interpreted by me (1pt min.). @ -None done CT interpreted by me (1pt min.). @ -None done U/S interpreted by me (1pt. min.). @ -None done What testing was considered but not performed or refused? (CT, X-rays, U/S, labs)? Why? @ -None What meds were considered but not given or refused? Why? @ -None Did you discuss the management of the patient with other professionals (professionals i.e. , PA, BARREL WASHER, lab, RT, psych nurse, social insurance specialist, building services engineer, teacher, chief growth officer, case planner)? Give summary @ -No Was smoking cessation discussed for >3mins.? @ -No Was critical care preformed (if so, how long)? @ -No Were there social determinants of health that impacted care today? How? (Homelessness, low income, unemployed, alcoholism, drug addiction, transportation, low edu. Level, literacy, decrease access to med. care, longterm, rehab)? @ -No Was there de-escalation of care discussed even if they declined (Discuss DNR or withdrawal of care, Hospice)? DNR status @ -No What co-morbidities impacted this encounter? (DM, HTN, Smoking, COPD, CAD, Cancer, CVA, ARF, Chemo, Hep., AIDS, mental health diagnosis, sleep apnea, morbid obesity)? @ -None Hospital course admitted, discharged? @ Was patient discharge patient's has underlying dental infection will start on clindamycin no drainable abscess patient will follow-up with on-call oral surgery Undiagnosed new problem with uncertain prognosis? @ -No Drug Therapy requiring intensive monitoring for toxicity (Heparin, Nitro, Insulin, Cardizem)? @ -No Were any procedures done? @ -No Diagnosis/symptom? @ -[Dental infection Acute, or Chronic, or Acute on Chronic? @ -Acute Uncomplicated (without systemic symptoms) or Complicated (systemic symptoms)? @ -Uncomplicated Side effects of treatment? @ -No Exacerbation, Progression, or Severe Exacerbation? @ -No Poses a threat to life or bodily function? How? (Chest pain, [place], [place], pneumonia, PE, COPD, DKA, ARF, appy, cholecystitis, CVA, Diverticulitis, Homicidal, Suicidal, threat to staff... and all critical care pts) @ -No Disposition Clinical Impression: Toothache, Dental abscess Disposition: HOME SELF-CARE Condition: Stable Instructions (If sedation given, give patient instructions): Dental Abscess (E D) Additional Instructions: Please return to the Emergency Department if symptoms worsen or any other concerns. Prescriptions: clindamycin HCL 300 mg PO QID #40 cap Is patient prescribed a controlled substance at d/c from ED?: No Referrals: Roland Sanchez DDS [STAFF PHYSICIAN] - 1-2 days Warren Arroyo DDS [STAFF PHYSICIAN] - 1-2 days None,Stated [Primary Care Provider] - 1-2 days Time of Disposition: 09:38
== END 2023-10-29 09:52 | disposition home or self-care (01) ==
LOC: EC 09:07
DX: K04.7 Periapical abscess without sinus (principal); F17.200 Nicotine dependence, unspecified, uncomplicated; Z88.2 Allergy status to sulfonamides; Z88.8 Allergy status to other drugs, medicaments and biological substances
CPT/HCPCS: 99282; 99283

== ENCOUNTER → 2023-12-10 | Outpatient (CLI) | payer BC ==
[2023-12-10 14:57] LABS: HCT 54.5 % (39.6-50.0); HGB 18.2 g/dL (13.0-17.0); MCH 31.6 pg (27.0-32.0); MCHC 33.4 g/dL (32.0-37.0); MCV 94.6 FL (80.0-97.0); Mean Platelet Volume 9.8 FL (9.5-12.2); NRBC Per 100 WBC 0 X 10*3/uL (0.00-0.01); Platelet Count 300 X 10*3/uL (140-440); RBC 5.76 X 10*6/uL (4.40-5.60); RDW 14.6 % (11.5-14.5); WBC 8.47 X 10*3/uL (4.50-10.00)
[2023-12-10 15:21] LABS: Chol/HDL Ratio 3.16 Ratio; VLDL Calculation 15.54 mg/dL (5.00-40.00)
[2023-12-10 15:22] LABS: LDL Cholesterol,Calculated 85.6 mg/dL (0.0-131.0); Prostate Specific Antigen 3.08 ng/mL (0.000-3.500)
[2023-12-10 15:32] LABS: ALT 17 U/L (10-49); AST 26 U/L (14-35); Albumin 4.5 g/dL (3.8-4.9); Alkaline Phosphatase 104 U/L (41-126); BUN/Creat Ratio 15.09 Ratio (12.00-20.00); Blood Urea Nitrogen 16.6 mg/dL (9.0-27.0); Calcium 10.1 mg/dL (8.7-10.3); Carbon Dioxide 25.9 mmol/L (21.6-31.8); Chloride 100 mmol/L (96-109); Glucose 104 mg/dL (70-110); Potassium 4.7 mmol/L (3.5-5.5); Sodium 137 mmol/L (135-145); Total Bilirubin 0.6 mg/dL (0.3-1.2); Total Protein 7.5 g/dL (6.2-8.2)
== END | disposition home or self-care (01) ==
LOC: LABWHC1 09:43
PROVIDERS: ATTEND Orthopaedic Surgery
DX: Z01.812 Encounter for preprocedural laboratory examination (principal); Z22.322 Carrier or suspected carrier of Methicillin resistant Staphylococcus aureus; M47.12 Other spondylosis with myelopathy, cervical region; M48.02 Spinal stenosis, cervical region; E78.2 Mixed hyperlipidemia; R73.01 Impaired fasting glucose; G62.9 Polyneuropathy, unspecified
CPT/HCPCS: 36415; 80053; 80061; 82306; 82607; 83036; 84153; 85027; 85730; 86850; 86900; 86901; 87070

== ENCOUNTER 2023-12-18 07:30 | Inpatient (IN) | payer BC, OTHER ==
--- NOTE | 2023-12-18 06:39 | P.HPOR ---
History of Present Illness H&P Date: 12/13/23 .D:Date: 12/13/23 : 09:37am .T:Title: *[facility] History and Physical Date of :63 [id number]: NKDA Age: 58 year Height: 5'7" Weight: 150 lbs BP:136/84 BMI: 23.49 kg/m2 Occupation: emergency operator VAS: 8 Hand:Right IMPRESSION: It was my pleasure to have seen and examined Pablo. I reviewed the patient's clinical syndrome, physical findings, and imaging studies during the appointment today. It is my impression that the patient has a diagnosis of. 1. Cervical Myelopathy 2.C3-7 severe stenosis 3. C3-7 spondylosis 4. Upper extremity weakness I outlined the natural course history without intervention and various interventional options. Spine Surgery Risk Review Mr. Sanchez is presenting for evaluation of cervical pain. It was my pleasure to have seen and examined Mr. Sanchez. In our visit today we have had a chance to go over subjective complaints, physical examination findings and treatments including the natural course history without intervention and various interventional options. The patients imaging demonstrates: XRay Cervical multiview (Lateral, Flexion, Extension, AP, Oblique) 6 views taken at [facility] on 09/06/23: Multilevel spondylitic and degenerative changes, most severe C4-C7 with flattening of the normal lordosis. Multilevel diminished disc height with foraminal stenosis. Complete disc collapse between C5-C6. Vertebral body heights are preserved. No acute osseous abnormalities. [facility] 09[facility]18[facility]23of Cervical Spine: Images reviewed demonstrate severe spondylotic collapse of C3-C7 with disc herniations, facet arthropathy, ligamental hypertrophy all contributing to severe and critical stenosis as multiple levels with myelomalacia changes at C5- 6 and C4-5. No fractures noted. C01 and C1,2 stable. No lesions noted otherwise. On physical exam, Mr. Sanchez demonstrates: Patient states his neck feels very tight and notes a "pulling" sensation which radiates into the right upper back. Patient continues to report a sharp, burning, aching cervical pain that has been ongoing since 2017. Patient denies any injury or trauma to indicate an exact onset. In addition to the cervical pain, they do report that it radiates into the bilateral upper extremities and is associated with weakness. Patient does have history of a right reverse total shoulder. Mr. Sanchez symptoms are exacerbated by weather and prolonged activity.Patient is currently taking Percocet and Gabapentin without resolution of his symptoms. He is having moderate sleep disturbances due to his ongoing pain and symptoms. I have explained to the patient that as their condition progresses it will cause further neurological deficits and eventual paralysis. Based on the patients imaging, physical exam, and the rapid progression and disabling nature of their symptoms, at this time I recommend surgery in the form of a: Stage 1: C3-7 ACDF and Stage 2: C2-T2 decompression and fusion I discussed the risk and benefits of this procedure at length with Mr. Sanchez. The patient agreed to considered pursuing the procedure abovementioned. Prior to surgery, she should follow up with her PCP (Cardio, ID, IM etc) for clearance. Questions were invited and answered, and the patient wishes to proceed as outlined below. Currently, I am recommendin. Stage 1: C3-7 ACDF and Stage 2: C2-T2 decompression and fusion 2.Review of surgical risks and benefits as well as an educational packet on the proposed surgical procedure. Risks: All surgical procedures come with inherent risks, including those related to positioning, anesthesia, intraoperative findings, and postoperative complications. It is important to understand that surgery does not come with any guarantee of a successful outcome as complications and adverse events are always possible. The patient was given a handout in office today discussing the surgical procedure and risks associated with the intervention, both of which were discussed with the patient. These risks include but are not limited to the following: * Experiencing same, different or even worse symptoms in back, neck, arms, or legs compared to before surgery. Requiring further surgery or other forms of treatment presently or at some time in the future at same or other levels of the intended spine surgery. On an extreme but fortunately relatively rare basis severe complication such as blindness, stroke, heart attack, temporary and/or permanent nerve injury, paralysis, coma, or may occur, sometimes without known explanation. Surgical complications may include but are not limited to risk of infection, fluid accumulation in the surgical dissection site, including a seroma or hematoma, that requires additional surgery, wound drainage, bleeding, new numbness or weakness, vision changes/loss, spinal fluid leakage, non-healing and/or infected incision, headaches, difficulty or inability to swallow, hoarseness, hemopneumothorax, pneumothorax, impotence, retrograde ejaculation, vaginal dryness; injury to nerves, spinal cord, blood vessels, lymphatics or other vital organs (i.e., bowel injury, injury to the great vessels); heterotopic bone formation; complications related to the hardware such as screws, rods, cages including misplaced hardware, device failure, instrumentation at the wrong spine level, hardware fracture/breakage, or hardware loosening; vertebral failure of the spinal column above or below the newly placed hardware; retained surgical instrumentations or devices and the need for further surgery. * Medical risks of the planned spine surgery include but are not limited to generalized Infections to the whole body or local areas outside of the surgical site (sepsis), heart attack, bleeding, anaphylaxis, meningitis, seizure, epilepsy, hearing loss, burn barrett, laceration of the head or other areas of the body, bruising, hypersensitivity of the skin, bladder over distension; allergic reaction; shoulder injury related to positioning; fat, blood and air clots to other areas of the body like heart, lungs, brain; failure of internal organs such as lungs, kidneys, liver and excessive bleeding. If blood transfusions are necessary, note that transfusions may cause intolerance reactions such as anaphylaxis or other complex reactions. Despite best efforts, the results of spine surgery might not heal in terms of bone, soft tissues such as skin, fascia, ligaments, and joints. Additionally, in order to achieve best possible results, spine surgery may be carried out beyond the initially planned levels and involve decompression, fusion including insertion of hardware at levels other than the original intended area of surgical interest change some portions of the procedure in order to ensure the best possible outcomes. With spine surgery and spinal fusion, there are different off label uses of instrumentation (devices, implants and hardware) as well as biological substances (bone morphogenic proteins, demineralized bone matrix) as well as using extra bone from allograft sources (i.e. cadaver bone) or autograft (iliac crest bone, ribs, or the spine itself). The patient has been given information about these practices and their inherent risks and benefits. [facility] is an educational center that serves as a training facility for neurosurgical and orthopedic VARNISHER and Nursing students. Physician assistants are medically trained surgical providers who function in the outpatient, inpatient, and operating room setting under the direct supervision of the attending surgeon. [facility] has multiple operating rooms with single and overlapping rooms running daily. They currently function under the required guidelines as produced by the [facility] [employer] [facility] with regards to the overlapping rooms and will continue to comply with changes to this policy as they occur. The requirements include and are complied with as follows: (1) the critical portions of the overlapping rooms will not occur at the same time, (2) the attending physician will be physically present during the critical portions of the procedure and immediately available during the entire case, and (3) a back-up attending is designated should the primary attending not be immediately available. The patient has had a chance to review all the listed information, has been given print outs detailing this information, and has had all his/her questions answered to their satisfaction. It was my pleasure to have seen and examined Mr. Sanchez. In our visit today we have had a chance to go over my understanding of our patient's current condition, the natural course history without intervention and various interventional options. Questions were invited and answered, and the patient wishes to proceed as outlined above. I have seen and examined the patient for 25 minutes and we have spent more than 50% of the time in repeat and detailed counseling about the patient's condition, its natural course history with out and as much as can be predicted with surgery and re-review of various surgical treatment options. In conclusion, Mr. Sanchez requested we proceed with the above suggested surgery and are willing to accept risks and limitations of the suggested surgery as nature of the disease process and our best attempts at treatment for the condition. Thank you again for allowing us to be part of your patient's care. Please don't hesitate to contact me if you have any further questions. Follow-up: Post procedure Patient Education: (Informational booklet, instructions, etc) given at today's appointment: Yes .ED:Patient Education: Y Plan at next visit: X-ray (AP & Lat) Cervical Spine Medications Reviewed: YES In our visit today Mr. Sanchez and I have had a chance to go over my understanding of the patient's current condition, the natural course history without intervention and various interventional options. Questions were invited and answered, and the patient wishes to proceed as outlined above. I will be sure to keep you updated afterMr. Sanchez returns here for further follow-up. Thank you again for your referral. Please do not hesitate to contact me if you have any further questions. Signed and authenticated by: Rd Mccollum Laila [facility] [address] [place] [address] This message is confidential, intended only for the named recipient(s) and may contain information that is privileged or exempt from disclosure under applicable law. If you are not the intended recipient(s), you are notified that the dissemination, distribution or copying of this information is strictly prohibited. If you received this message in error, please notify the sender then delete this message. Patient verbalizes understanding of the information discussed. The above note was initiated by Karen Herbert, physician recording computer lab assistant for Dr. Rd Bowen. This note has been reviewed by Dr. Bowen, who has made his personal changes and impressions for this document. CC: Norris Cardona MD Past Medical History Past Medical History: Deep Vein Thrombosis (DVT), GERD/Reflux, Prostate Disorder Additional Past Medical History / Comment(s): RIGHT SHOULDER PAIN. DIVERTICULITIS. Pain lower back and rt leg/hip. 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 History of Any Multi-Drug Resistant Organisms: MRSA Date of last positivie culture/infection: 11/19/1989 MDRO Source:: RIGHT CHIN AREA Past Surgical History: Orthopedic Surgery Additional Past Surgical History / Comment(s): LYPOMA RT BUTTOCKS/hip removed. COLONSCOPY WITH POLYP REMOVAL. RT ROTATOR CUFF SURGERY X -2019 Past Anesthesia/Blood Transfusion Reactions: No Reported Reaction Additional Past Anesthesia/Blood Transfusion Reaction / Comment(s): no blood tx hx Smoking Status: Current every day smoker - Past Family History Mother Family Medical History: Cancer Medications and Allergies Home Medications Medication Instructions Recorded Confirmed Type Famotidine [Pepcid] 20 mg PO DAILY #14 tablet 09/23/18 12/11/23 Rx HYDROcodone/APAP 7.5-325MG [[place] 1 tab PO Q12HR PRN 30 Days #60 tab 05/25/22 12/11/23 Rx 7.5-325] Cyclobenzaprine [Flexeril] 10 mg PO TID 12/11/23 12/11/23 History Gabapentin [Neurontin] 600 mg PO TID 12/11/23 12/11/23 History Ibuprofen [Motrin] 600 mg PO Q8HR PRN 12/11/23 12/11/23 History Tamsulosin HCl [Flomax] 0.8 mg PO DAILY 12/11/23 12/11/23 History Allergies Allergy/AdvReac Type Severity Reaction Status Date / Time latex Allergy Itching Verified 12/11/23 13:13 sulfamethoxazole Allergy Rash/Hives Verified 12/11/23 12:51 [From Bactrim] trimethoprim [From Bactrim] Allergy Rash/Hives Verified 12/11/23 12:51 Physical Examination Osteopathic Statement: *. No significant issues noted on an osteopathic structural exam other than those noted in the History and Physical/Consult.
[~2023-12-18 07:30] MED LIST changes: +ACETAMINOPHEN TAB 500 MG TAB PO PRN; +DEXAMETHASONE SOD PHOSPHATE 4 MG/ML 1 ML VIAL IV ONE; +GABAPENTIN 300 MG CAP PO PRN; -LACTATED RINGERS 1,000 ML IV SCH; +MIDAZOLAM 2 MG/2 ML VIAL IV PRN; +ONDANSETRON 4 MG/2 ML VIAL IVP ONE; +ONDANSETRON 4 MG/2 ML VIAL IVP PRN; +TRANEXAMIC 1,000 MG/100ML-NACL 1,000 MG in SALINE 1 100ML.BAG IVPB PRN
[2023-12-18] MEDS: LACTATED RINGERS 1,000 ML IV SCH (08:32)
[2023-12-18] MEDS ORDERED: fentaNYL (PF) 50 MCG/1 ML VIAL IVP ONE (08:40)
[2023-12-18] MEDS ORDERED: MIDAZOLAM 2 MG/2 ML VIAL IVP ONE ×2 (08:40→14:40)
[2023-12-18] MEDS ORDERED: ROCURONIUM 10 MG/ML (5 ML VIAL) IV ONE (10:05)
[2023-12-18] MEDS ORDERED: TRANEXAMIC 1,000 MG/100ML-NACL PREMIX BAG ONE (10:05)
[2023-12-18] MEDS ORDERED: DEXAMETHASONE SOD PHOSPHATE 10 MG/ML 1 ML VIAL ONE (10:05)
[2023-12-18] MEDS ORDERED: SUCCINYLCHOLINE CHLORIDE 200 MG/10 ML VIAL IV ONE (10:05)
[2023-12-18] MEDS ORDERED: KETAMINE HCL IN 0.9 % NACL 50 MG/5 ML SYRINGE ONE (10:05)
[2023-12-18] MEDS ORDERED: fentaNYL (PF) 50 MCG/ML 2 ML AMP ONE (10:05)
[2023-12-18] MEDS ORDERED: HYDROmorphone (PF) 1 MG/ML ONE (10:05)
[2023-12-18] MEDS ORDERED: PHENYLEPHRINE 10 MG/ML VIAL ONE (10:05)
[2023-12-18] MEDS ORDERED: NEOSTIGMINE 1 MG/ML 10 ML VIAL ONE (10:05)
[2023-12-18] MEDS ORDERED: MIDAZOLAM 2 MG/2 ML VIAL ONE (10:05)
[2023-12-18] MEDS ORDERED: LIDOCAINE 1% INJ 10MG/ML (20 ML MDV) ONE (10:05)
[2023-12-18] MEDS ORDERED: PROPOFOL 10 MG/ML 20 ML VIAL IV ONE (10:05)
[2023-12-18] MEDS ORDERED: GLYCOPYRROLATE 0.2 MG/ML 2 ML VIAL ONE (10:05)
--- NOTE | 2023-12-18 10:36 | P.ANPRN ---
Procedure Note - Anesthesia - Invasive Line Left Arterial Line Time Out Performed: Yes Date of Procedure: 12/18/23 Time of Procedure: 10:25 Location of Patient: OR Preparation: Sterile Prep Arterial Line Location: Radial Ultrasound Used: No Narrative: Central line placement per sterile protocol utilized. 22g fab kit. AttemptX1
[2023-12-18] MEDS ORDERED: THROMBIN (BOVINE) 5,000 UNIT VIAL TOPICAL ONE (10:48)
[2023-12-18] MEDS ORDERED: GELATIN SPONGE,ABSORB (LARGE) 1 EACH SPONGE TOPICAL ONE (10:49)
[2023-12-18] MEDS ORDERED: HYDROmorphone 0.5 MG/0.5 ML SYRINGE IVP PRN (13:17)
[2023-12-18] MEDS ORDERED: bisacodyL 10 MG SUPP RECTAL PRN (13:17)
[2023-12-18] MEDS ORDERED: MAGNESIUM HYDROXIDE 2,400 MG/30 ML CUP PO PRN (13:17)
[2023-12-18] MEDS ORDERED: HYDROcodone/APAP 10-325MG 1 EACH TAB PO PRN (13:17)
[2023-12-18] MEDS ORDERED: ONDANSETRON 4 MG/2 ML VIAL IVP PRN (13:17)
--- NOTE | 2023-12-18 13:19 | FL ---
EXAMINATION TYPE: FL guidance operating room, XR cervical spine limited DATE OF EXAM: 12/18/2023 Comparison: None Clinical History: C3-C7 Fusion Findings: c3-c7 Fusion 32sec fluoro DAP- 0.9881 Gycm2 7 images submitted Impression: Intraoperative fluoroscopy as above.
[2023-12-18] MEDS ORDERED: oxyCODONE-APAP 5-325MG 1 EACH TAB PO PRN (13:21)
[2023-12-18] MEDS: HYDROmorphone 0.5 MG/0.5 ML SYRINGE IVP PRN ×3 (14:31→16:00)
[2023-12-18] MEDS ORDERED: LACTATED RINGERS 1,000 ML IV ONE (15:32)
[2023-12-18] MEDS ORDERED: HYDROmorphone 0.5 MG/0.5 ML SYRINGE IVP ONE (16:24)
[2023-12-18] MEDS: CYCLOBENZAPRINE 10 MG TAB PO SCH ×2 (17:35→22:13)
[2023-12-18] MEDS: HYDROmorphone 1 MG/ML 1 ML SYRINGE IVP PRN ×2 (17:36→22:14)
[2023-12-18] MEDS: TAMSULOSIN 0.4 MG CAP.ER.24H PO SCH (18:39)
[2023-12-18] MEDS: GABAPENTIN 300 MG CAP PO SCH (22:14)
--- NOTE | 2023-12-18 22:48 | CT ---
EXAMINATION TYPE: CT cervical spine wo con DATE OF EXAM: 12/18/2023 COMPARISON: CT cervical spine October 24, 2023 HISTORY: S/P C4-[address] DLP: 292.7 mGycm. Automated Exposure Control for Dose Reduction was Utilized. TECHNIQUE: CT scan of the cervical spine is obtained without contrast, axial images are obtained, sa gittal and coronal reformatted images are also reviewed. FINDINGS: Cervical spine is visualized in its entirety from C1 through upper thoracic levels, there i s new artificial disc material with fusion devices at C4-C5, C5-C6, and C6-C7 level. Alignment is im proved and satisfactory after surgery Prevertebral soft tissue appears within more prominent at C6 le nette. The C1-C2 articulation remains within normal limits on the coronal images. Review of axial images shows positioning of hardware to appear grossly satisfactory. There is soft ti ssue swelling and subcutaneous air anteriorly greater in the right neck. There is percutaneous draina ge catheter terminating in roughly the C4 vertebral body level on axial image 57. Airway remains fernandez nt. Lung apices show no pneumothorax. Thyroid gland grossly unremarkable. There is gas-filled dilated proximal esophagus only partially imaged. IMPRESSION: New surgical changes C4-C7 level with improved and satisfactory alignment noted.
[2023-12-19] MEDS: HYDROmorphone 1 MG/ML 1 ML SYRINGE IVP PRN ×5 (01:46→19:41)
--- NOTE | 2023-12-19 02:43 | P.CONS ---
History of Present Illness - Reason for Consult Consult date: 12/18/23 - History of Present Illness Patient is a 58-year-old male with a PMH of BPH who was admitted for an elective anterior cervical discectomy and fusion which the patient underwent earlier today. The patient had no reported obvious postoperative complications and was seen postoperatively on the surgical unit. He reported ongoing 6 out of 10 pain and also reported mild numbness and tingling of both his hands which has wilfrido ewhat improved since surgery. Denies any additional complaints. Denied experiencing chest discomfort, shortness of breath, fever, chills, cough, nausea, vomiting, abdominal pain, diarrhea. The patient has had difficulty urinating and had to be straight cathetered previously. He has passed flatus but has not had a bowel movement as of yet. Review of systems: Pertinent positives and negatives as discussed in HPI, a complete review of systems was performed and all other systems are negative. Physical examination: Vital signs reviewed General: non toxic, no distress, appears at stated age, normal weight Derm: no unusual rashes/lesions, warm Head: atraumatic, normocephalic, symmetric Eyes: EOMI, no lid lag, anicteric sclera, pupils equal round reactive to light ENT: Nose and ears atraumatic Neck: Neck brace on with right anterior neck dressing in place Mouth: no lip lesion, mucus membranes moist Cardiovascular: S1S2 reg, no murmur, positive dorsalis pedis pulse bilateral, no edema Lungs: CTA bilateral, no rhonchi, no rales, no accessory muscle use Abdominal: soft, nontender to palpation, no guarding Ext: muscle strength 5 out of 5 in all 4 extremities grossly, no gross muscle atrophy, no contractures, Neuro: CN II-XI grossly intact, no gross focal neuro deficits Psych: Alert, oriented, appropriate affect Assessment: Chronic conditions: BPH Status post cervical anterior discectomy and fusion Plan: Frequent bladder scans with straight catheterization if needed Defer management of pain control and DVT prophylaxis to the primary surgery service We appreciate this opportunity to be involved in this patient's care. We will follow the patient with you. For any further questions, please not hesitate to contact the sound inpatient team. Past Medical History Past Medical History: Deep Vein Thrombosis (DVT), GERD/Reflux, Prostate Disorder Additional Past Medical History / Comment(s): RIGHT SHOULDER PAIN. DIVERTICULITIS. Pain lower back and rt leg/hip. 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 COLONSCOPY WITH POLYP REMOVAL. RT ROTATOR CUFF SURGERY X -2019 Past Anesthesia/Blood Transfusion Reactions: No Reported Reaction Additional Past Anesthesia/Blood Transfusion Reaction / Comm: no blood tx hx Past Psychological History: No Psychological Hx Reported Smoking Status: Current every day smoker Past Alcohol Use History: None Reported Additional Past Alcohol Use History / Comment(s): smokes 5-7 cigarettes daily, has smoked for 20 yrs Past Drug Use History: Marijuana Additional Drug Use History / Comment(s): USES MARIJUANA FOR PAIN CONTROL AND SLEEP-INSTRUCTED TO REFRAIN FROM USE FOR AT LEAST 24 HOURS PRIOR TO PROCEDURE - Past Family History Mother Family Medical History: Cancer Medications and Allergies Home Medications Medication Instructions Recorded Confirmed Type Famotidine [Pepcid] 20 mg PO DAILY #14 tablet 09/23/18 12/11/23 Rx HYDROcodone/APAP 7.5-325MG [[place] 1 tab PO Q12HR PRN 30 Days #60 tab 05/25/22 12/11/23 Rx 7.5-325] Cyclobenzaprine [Flexeril] 10 mg PO TID 12/11/23 12/11/23 History Gabapentin [Neurontin] 600 mg PO TID 12/11/23 12/11/23 History Ibuprofen [Motrin] 600 mg PO Q8HR PRN 12/11/23 12/11/23 History Tamsulosin HCl [Flomax] 0.8 mg PO DAILY 12/11/23 12/11/23 History oxyCODONE-APAP 10-325MG [Percocet 10 - 325 mg PO TID 12/18/23 12/18/23 History 10-325 mg] Allergies Allergy/AdvReac Type Severity Reaction Status Date / Time latex Allergy Itching Verified 12/18/23 08:08 sulfamethoxazole Allergy Rash/Hives Verified 12/18/23 08:08 [From Bactrim] trimethoprim [From Bactrim] Allergy Rash/Hives Verified 12/18/23 08:08 Physical Exam Vitals: Vital Signs Temp Pulse Resp BP Pulse Ox 12/18/23 20:00 88 18 148/94 91 L 12/18/23 17:15 97.4 F L 71 21 137/86 93 L 12/18/23 16:43 59 L 15 123/79 95 12/18/23 16:12 86 17 117/68 100 12/18/23 15:42 83 17 150/97 96 12/18/23 15:10 68 19 146/89 93 L 12/18/23 14:55 69 18 146/88 94 L 12/18/23 14:50 70 17 146/88 95 12/18/23 14:35 70 14 160/99 96 12/18/23 14:20 63 19 159/101 95 12/18/23 14:03 77 15 169/99 95 12/18/23 13:49 67 17 157/93 95 12/18/23 13:35 71 14 150/89 95 12/18/23 13:20 98 F 77 16 139/85 95 12/18/23 08:24 97.8 F 67 16 133/85 97 Intake and Output 12/18/23 12/18/23 12/18/23 06:59 14:59 22:59 Intake Total 2049 250 Output Total 100 700 Balance 1950 - Intake: IV 2049 200 Intake, IV Titration 50 Amount ceFAZolin 2 gm In Sodium 50 Chloride 0.9% 50 ml @ 100 mls/hr IVPB Q8H [facility] Rx#: [id number] Output: Urine 700 Estimated Blood Loss 100 Other: Weight 63.9 kg 63.9 kg
[2023-12-19] MEDS: LACTATED RINGERS 1,000 ML IV SCH (06:13)
[2023-12-19 06:21] LABS: Basophils % (A) 0 %; Eosinophils # (A) 0.1 k/uL (0-0.7); Eosinophils % (A) 1 %; HGB 15.9 gm/dL (13.0-17.5); Lymphocytes # (A) 1.8 k/uL (1.0-4.8); Lymphocytes % (A) 9 %; MCH 31.7 pg (25.0-35.0); MCV 95.9 fL (80.0-100.0); Mean Platelet Volume 7.7; Monocytes # (A) 1.1 k/uL (0-1.0); Monocytes % (A) 6 %; Neutrophils # (A) 16.5 k/uL (1.3-7.7); Neutrophils % (A) 84 %; Platelet Count 263 k/uL (150-450); RBC 5.01 m/uL (4.30-5.90); RDW 13.4 % (11.5-15.5); WBC 19.7 k/uL (3.8-10.6)
--- NOTE | 2023-12-19 06:53 | P.OP ---
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 C4 5 anterior arthrodesis 2. C5-C6 anterior arthrodesis 3. C6-C7 anterior arthrodesis 4. C4-C5 insertion of biomechanical device 5. C4-C5 insertion of biomechanical device 6. C4-C5 insertion of biomechanical device Use of intraoperative neuro monitoring Use of intraoperative microscope Implants: 4 Martin Stand Alone Cervical Spine Truss system 6 screws, 3 cages Magnatos Anesthesia: GETA Surgeon: Rd Bowen Tooth Cutter Spur #1: Flaquita Gale (WAS PRESENT AND ASSISTED WITH ALL ASPECTS OF THE CASE FROM POSITION TO CLOSURE) Estimated Blood Loss (ml): 25 IV fluids (ml): 1,400 Urine output (ml): 250 Pathology: none sent Condition: stable Disposition: PACU Indications for Procedure: Mr. Sanchez is presenting for evaluation of cervical pain. It was my pleasure to have seen and examined Mr. Sanchez. In our visit today we have had a chance to go over subjective complaints, physical examination findings and treatments including the natural course history without intervention and various interventional options. The patients imaging demonstrates: XRay Cervical multiview (Lateral, Flexion, Extension, AP, Oblique) 6 views taken at [facility] on 09/06/23: Multilevel spondylitic and degenerative changes, most severe C4-C7 with flattening of the normal lordosis. Multilevel diminished disc height with foraminal stenosis. Complete disc collapse between C5-C6. Vertebral body heights are preserved. No acute osseous abnormalities. MRI scan[facility] at [facility] from 09/18/23of Cervical Spine: Images reviewed demonstrate severe spondylotic collapse of C3-C7 with disc herniations, facet arthropathy, ligamental hypertrophy all contributing to severe and critical stenosis as multiple levels with myelomalacia changes at C5- 6 and C4-5. No fractures noted. C01 and C1,2 stable. No lesions noted otherwise. On physical exam, Mr. Sanchez demonstrates: Patient states his neck feels very tight and notes a "pulling" sensation which radiates into the right upper back. Patient continues to report a sharp, burning, aching cervical pain that has been ongoing since 2017. Patient denies any injury or trauma to indicate an exact onset. In addition to the cervical pain, they do report that it radiates into the bilateral upper extremities and is associated with weakness. Patient does have history of a right reverse total shoulder. Mr. Sanchez symptoms are exacerbated by weather and prolonged activity.Patient is currently taking Percocet and Gabapentin without resolution of his symptoms. He is having moderate sleep disturbances due to his ongoing pain and symptoms. I have explained to the patient that as their condition progresses it will cause further neurological deficits and eventual paralysis. Based on the patients imaging, physical exam, and the rapid progression and disabling nature of their symptoms, at this time I recommend surgery in the form of a: Stage 1: C3-7 ACDF and Stage 2: C2-T2 decompression and fusion I discussed the risk and benefits of this procedure at length with Mr. Sanchez. The patient agreed to considered pursuing the procedure abovementioned. Prior to surgery, she should follow up with her PCP (Cardio, ID, IM etc) for clearance. Questions were invited and answered, and the patient wishes to proceed as outlined below. Currently, I am recommendin. Stage 1: C3-7 ACDF and Stage 2: C2-T2 decompression and fusion Description of Procedure: C4-7 ACDF (Stand Alone) The patient was seen and examined in the preoperative area. All preoperative protocols were followed. Informed consent was obtained, risks and benefits of the procedure were discussed at length. Risks including bleeding infection damage to the surrounding tissue and risk of reoperation were discussed with the patient. Risk of anesthesia up to and including was discussed with the patient. These are outlined in the risk review. They were willing to accept these risks and all the risks of surgery. The patient was given a weight-based dose of antibiotics in the form of 2 g Ancef. The patient was seen and evaluated by the anesthesia team who deemed them fit for surgery. The site was marked, the patient was willing to proceed with the procedure. The patient was transferred to the operative suite by the Department of anesthesia. They were then drifted off to sleep by the department anesthesia and GETA was performed. The patient tolerated this well. Jett catheter was placed by nursing staff, a-traumatically. Once confirmation of lines and ventilation the patient was transferred to a Supine Valente table very carefully. All bony prominences including wrists, elbows, axilla, chest, hips, and thighs, and feet were padded very well. Special attention was paid to the genitalia, and these were padded accordingly. SCDs were placed on bilateral lower extremities and were connected. Arms were well padded and placed at their side thumbs up. Once in position, again we confirmed good ventilation capabilities and that lines were running appropriately. The patients Cervical spine was then exposed. 1010s were placed outlining the incision site. Standard alcohol was used to clean the incision site and allowed to dry. C-arm was used to bio-oseas the patient and confirm level for incision which was marked with a skin marker. Operative briefing was performed with all teams and everyone in agreement to proceed. The patient was then prepped and draped in a normal sterile fashion. Timeout was then performed, and all parties agreed with the procedure to be performed. Transverse skin incision was then made on the right side of the patient's neck 3 cm and dissection taken down to the platysma which was split transversely. Sub platysma flap was made, and interval identified between SCM and medial structures. Omohyoid was visualized and protected. Blunt dissection taken down to the anterior cervical fascia which was identified. Blunt probe was then placed and lateral image taken which confirmed levels for operation. These levels were then marked with a bovi. Subperiosteal dissection of the longissimus muscles were then done over these levels identifying uncovertebral joints bilaterally. Retractor was then placed deep to these muscles and held in place with a bed arm. Starting at C6-7, [place] pins were placed into C6 and C7 and gentle distraction taken out over the levels. Kwame rongeur used to remove disc material. Operating microscope brought in for visualization. Complete discectomy performed at this level with curette, rongure and pituitary. High speed naldo used to remove osteophytes anteriorly and posteriorly until PLL was identified. 6-0 up curette then used to identify the canal and resect the PLL. 2-0 and 3-0 Kerrison used then to remove PLL and disc herniation and performed b/l foraminotomies. Once good decompression was accomplished, meticulous hemostasis was performed. Sizers were then placed under lateral fluoroscopy until the desired height and lordosis. Cage was then selected, packed with autograft and allograft and placed under lateral imaging. Once in good position it was tested and stable. Motors run before and after cage placement were stable. The wound was irrigated, and autograft placed lateral to the cage anteriorly for fusion. [place] pin was then removed from C7 and placed into C5. Gentle distraction taken out over C5-6 now. Complete discectomy done at C5-6 as described including decompression, b/l foraminotomies and PLL resection. Burring of endplates was minimal, osteophytes removed as described. Spacers were then sized and placed under lateral imaging. Cage selected, packed with graft and placed under lateral images. Once in position, meticulous hemostasis performed, and motors remained stable before and after cage placement. AP image confirmed good placement of cages. Wound was irrigated. [place] pin was then removed from C6 and placed into C4. Gentle distraction taken out over C4-5 now. Complete discectomy done at C4-5 as described including decompression, b/l foraminotomies and PLL resection. Burring of endplates was minimal, osteophytes removed as described. Spacers were then sized and placed under lateral imaging. Cage selected, packed with graft and placed under lateral images. Once in position, meticulous hemostasis performed, and motors remained stable before and after cage placement. AP image confirmed good placement of cages. Wound was irrigated. After each cage placement, screws were placed through the cage with good purchase using lateral imaging. The screws were placed inferiorly and superiorly and locked. All locking mechanisms were set, and all screws had good purchase. Final AP and lateral images taken confirmed good placement of hardware and good reduction and baptist of height. The wound was then irrigated copiously with NSS. Surgicel placed deep in the wound. A deep drain placed out a separate incision and sewed into place. Layered closure then performed with 3-0 Vicryl in the platysma and subQ tissue. 4-0 Strata fix in the subcuticular tissue. The wound was then cleaned, and dried and skin glue placed. Once glue dried on Opifoam was placed. The patient was then transferred back to their hospital bed a-traumatically. The drain continued to hold suction. They were placed in a soft collar. They were then awakened by the department of anesthesia having tolerated the procedure well without complications.
[2023-12-19] MEDS: FAMOTIDINE 20 MG TAB PO SCH (08:17)
[2023-12-19] MEDS: GABAPENTIN 300 MG CAP PO SCH ×2 (08:17→21:35)
[2023-12-19] MEDS: TAMSULOSIN 0.4 MG CAP.ER.24H PO SCH (08:17)
[2023-12-19] MEDS: SENNOSIDES-DOCUSATE SODIUM 1 EACH TAB PO SCH (08:17)
[2023-12-19] MEDS: CYCLOBENZAPRINE 10 MG TAB PO SCH ×3 (08:17→21:35)
[2023-12-19 11:06] LABS: African American GFR (CKD) >90 (>60 ml/min/1.73 sqM); Anion Gap 5 mmol/L; Blood Urea Nitrogen 16 mg/dL (9-20); Calcium 9.4 mg/dL (8.4-10.2); Carbon Dioxide 26 mmol/L (22-30); Chloride 104 mmol/L (98-107); Glucose 111 mg/dL (74-99); Non-African American GFR(CKD) >90 (>60 ml/min/1.73 sqM); Potassium 4.5 mmol/L (3.5-5.1); Sodium 135 mmol/L (137-145)
[2023-12-19] MEDS: hydrOXYzine pamoate 25 MG CAP PO PRN ×2 (12:18→21:38)
[2023-12-19] MEDS: oxyCODONE-APAP 5-325MG 1 EACH TAB PO SCH ×3 (12:21→23:56)
--- NOTE | 2023-12-19 12:31 | P.PN ---
Subjective Progress Note Date: 12/19/23 Subjective: Patient seen and examined at bedside. No acute events overnight. Still having significant neck pain. Pertinent positives and negatives as discussed above, a complete review of systems was performed and all other systems are negative. Vitals Signs Reviewed. General: Nontoxic, no distress, appears at stated age Derm: Warm, dry Head: Atraumatic, normocephalic, symmetric, c-collar in place, drain in place Eyes: EOMI, no lid lag, anicteric sclera Mouth: No lip lesion, mucus membranes moist Cardiovascular: S1S2 reg, no murmur Lungs: CTA bilateral, no rhonchi, no rales, no accessory muscle use Abdominal: Soft, nontender to palpation, no guarding, no appreciable organomegaly Ext: No gross muscle atrophy, no edema, no contractures Neuro: CN II-XI grossly intact, no focal neuro deficits Psych: Alert, oriented, appropriate affect Data Reviewed Today: Pertinent Labs: WBC 19.7, hemoglobin 15.9, sodium 135, creatinine 0.75 Imaging: No new imaging Assessment and Plan: Status post cervical spine surgery Leukocytosis, anticipated outcome of surgery -Pain control with Flexeril, gabapentin, [place] as needed, Percocet as needed IV Dilaudid as needed, monitor for sedation -Senna daily -SCDs for DVT prophylaxis BPH GERD -Continue Flomax 0.8 daily -Continue famotidine 20 daily Thank you for allowing us to participate in the care of this pleasant patient. Do not hesitate to contact us with questions. Someone can be reached from the [facility] hospitalist group all hours of the day at [phone] or via perfect serve. Objective - Vital Signs Vital signs: Vital Signs Temp 98.5 F 12/19/23 07:43 Pulse 86 12/19/23 07:43 Resp 18 12/19/23 07:43 BP 129/88 12/19/23 07:43 Pulse Ox 93 L 12/19/23 07:43 FiO2 Intake & Output 12/18/23 12/19/23 12/19/23 18:59 06:59 18:59 Intake Total 2300 Output Total 800 1000 Balance 1500 -1000 Weight 63.9 kg Intake: IV 2250 Intake, IV Titration 50 Amount ceFAZolin 2 gm In Sodium 50 Chloride 0.9% 50 ml @ 100 mls/hr IVPB Q8H [facility] Rx#: [id number] Output: Urine 700 1000 Estimated Blood Loss 100 - Labs CBC & Chem 7: 12/19/23 06:03 12/19/23 06:03 Labs: Abnormal Lab Results - Last 24 Hours (Table) 12/19/23 12/19/23 Range/Units 06:03 06:03 WBC 19.7 H (3.8-10.6) k/uL Neutrophils # 16.5 H (1.3-7.7) k/uL Monocytes # 1.1 H (0-1.0) k/uL Sodium 135 L (137-145) mmol/L Glucose 111 H (74-99) mg/dL
--- NOTE | 2023-12-19 14:20 | P.PN ---
Subjective Progress Note Date: 12/19/23 Principal diagnosis: 1. Cervical Myelopathy 2.C3-7 severe stenosis 3. C3-7 spondylosis 4. Upper extremity weakness Patient seen and examined this morning. Upon entering room patient was very agitated and upset over his care through the night. Patient was very angry due to pain management. Pain medications need to be provided in a timely manner and as ordered. Discussed with patient that medications will be adjusted. Surgical incision to the anterior cervical spine is clean dry and intact with ZAK drain present. [place] cervical collar is in place. Patient does report some improvement to his bilateral upper extremities since the procedure. He is looking forward to stage II that is scheduled for tomorrow 12/20/23. patient needs to be n.p.o. at midnight tonight for surgery tomorrow afternoon. Patient had concerns regarding his medications for urinary retention, consult placed for urology. Encourage patient to use incentive spirometer. No acute concerns at this time. Objective - Vital Signs Vital signs: Vital Signs Temp 98.5 F 12/19/23 07:43 Pulse 86 12/19/23 07:43 Resp 18 12/19/23 07:43 BP 129/88 12/19/23 07:43 Pulse Ox 93 L 12/19/23 07:43 FiO2 Intake & Output 12/18/23 12/19/23 12/19/23 18:59 06:59 18:59 Intake Total 2300 Output Total 800 1000 Balance 1500 -1000 Weight 63.9 kg Intake: IV 2250 Intake, IV Titration 50 Amount ceFAZolin 2 gm In Sodium 50 Chloride 0.9% 50 ml @ 100 mls/hr IVPB Q8H [facility] Rx#: [id number] Output: Urine 700 1000 Estimated Blood Loss 100 - Exam Physical Examination General: The patient is awake and alert, in no acute distress Skin: Skin is warm and dry with no obvious rashes or lesions. Surgical incision to the anterior cervical spine, dressing is clean dry and intact with ZAK drain present. Eye: Pupils are equal, round and reactive to light, extra-ocular movements are intact; there is normal conjunctiva bilaterally. Neck: The neck has mild to moderate tenderness around incision, limited range of motion due to surgical procedure and [place] cervical collar in place. Cardiovascular: There is a regular rate and rhythm. No murmur, rub or gallop is appreciated. Respiratory: Lungs are clear to auscultation, respirations are non-labored, breath sounds are equal. Gastrointestinal: Soft, non-distended, non-tender abdomen. Back: There is no tenderness to palpation in the midline, paralumbar, parathoracic or buttocks region. There is no obvious deformity . Musculoskeletal: ROM limited secondary to pain and stiffness from surgical procedure. Muscle strength in all major muscle groups of bilateral upper extremities 4/5, bilateral lower extremities 5/5. Neurological: CN 2-12 intact. There are no obvious motor or sensory deficits. Movement and coordination equal and intact. Sensory exam to light touch intact C5-T1 and intact from L2-S1. Reflexes 2/4 in bilateral upper and lower extremities. Negative Hoffmans, babinski, and clonus signs. Psychiatric: Cooperative, appropriate mood & affect, normal judgment. - Labs CBC & Chem 7: 12/19/23 06:03 12/19/23 06:03 Labs: Abnormal Lab Results - Last 24 Hours (Table) 12/19/23 Range/Units 06:03 WBC 19.7 H (3.8-10.6) k/uL Neutrophils # 16.5 H (1.3-7.7) k/uL Monocytes # 1.1 H (0-1.0) k/uL Assessment and Plan Assessment: Postop day 1: C4-C7 ACDF 1. Cervical Myelopathy 2.C3-7 severe stenosis 3. C3-7 spondylosis 4. Upper extremity weakness Plan: -Appreciate accounting consultant and team management. -Urology consult for urinary retention -Patient to be n.p.o. at midnight tonight for surgical procedure scheduled for tomorrow afternoon C2-T2 decompression and fusion -Activity: Ambulate QID, OOB all meals, up and about, limit lifting bending twisting to less than 5 lbs. Use walker or cane if needed for stability. -Daily PT/OT, increase ambulation strength and balance. - [place] cervical collar at all times, may remove for showers. -Pain control: Medications have been adjusted. -Meds: reviewed -GI ppx: senna, Miralax -DVT PPX: Mechanical -Hygiene: Maintain dressing clean and dry. -Drains: Maintain for now. Continue to monitor and record output q shift. -Encourage IS 10x/hr -Dispo: clinically pending *I reviewed and discussed this case with my attending Dr. Bowen, whom has reviewed this chart and films and is in agreement with assessment and plan of care as outlined above. I have personally seen and examined the patient, performed the documentation and the assessment and plan as written. Number of minutes spent on the visit: 20m.
--- NOTE | 2023-12-19 15:51 | P.GSCN ---
History of Present Illness Consult date: 12/19/23 History of present illness: 58-year-old gentleman in the hospital after cervical fusion surgery. The patient had problems urinating on the first postoperative night requiring 1 intermittent catheterization of the thousand cc. This morning it is only 25 mL on bladder scan. She does have a known history of BPH. He takes Flomax 2 tablets daily. He has seen in the past but not for several months. He states that since last night and since the Flomax was resumed he is voiding without any significant problems other than frequently Review of Systems All systems: negative - Constitutional Denies fever, Denies weight loss - EENT Eyes: denies blurred vision Ears, nose, mouth and throat: Denies dysphagia - Cardiovascular Denies chest pain, Denies shortness of breath - Respiratory Denies cough, Denies 7 - Gastrointestinal Reports as per HPI - Genitourinary Denies dysuria, Denies hematuria - Integumentary Denies rash, Denies unusual bruising - Neurological Denies headaches, Denies syncope - Hematologic/Lymphatic Denies easy bleeding, Denies easy bruising Past Medical History Past Medical History: Deep Vein Thrombosis (DVT), GERD/Reflux, Prostate Disorder Additional Past Medical History / Comment(s): RIGHT SHOULDER PAIN. DIVERTICULITIS. Pain lower back and rt leg/hip. 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 COLONSCOPY WITH POLYP REMOVAL. RT ROTATOR CUFF SURGERY X 4-2019 Past Anesthesia/Blood Transfusion Reactions: No Reported Reaction Additional Past Anesthesia/Blood Transfusion Reaction / Comm: no blood tx hx Past Psychological History: No Psychological Hx Reported Smoking Status: Current every day smoker Past Alcohol Use History: None Reported Additional Past Alcohol Use History / Comment(s): smokes 5-7 cigarettes daily, has smoked for 20 yrs Past Drug Use History: Marijuana Additional Drug Use History / Comment(s): USES MARIJUANA FOR PAIN CONTROL AND SLEEP-INSTRUCTED TO REFRAIN FROM USE FOR AT LEAST 24 HOURS PRIOR TO PROCEDURE - Past Family History Mother Family Medical History: Cancer Medications and Allergies Home Medications Medication Instructions Recorded Confirmed Type Famotidine [Pepcid] 20 mg PO DAILY #14 tablet 09/23/18 12/11/23 Rx HYDROcodone/APAP 7.5-325MG [Hiram 1 tab PO Q12HR PRN 30 Days #60 tab 05/25/22 12/11/23 Rx 7.5-325] Cyclobenzaprine [Flexeril] 10 mg PO TID 12/11/23 12/11/23 History Gabapentin [Neurontin] 600 mg PO TID 12/11/23 12/11/23 History Ibuprofen [Motrin] 600 mg PO Q8HR PRN 12/11/23 12/11/23 History Tamsulosin HCl [Flomax] 0.8 mg PO DAILY 12/11/23 12/11/23 History oxyCODONE-APAP 10-325MG [Percocet 10 - 325 mg PO TID 12/18/23 12/18/23 History 10-325 mg] Allergies Allergy/AdvReac Type Severity Reaction Status Date / Time latex Allergy Itching Verified 12/18/23 08:08 sulfamethoxazole Allergy Rash/Hives Verified 12/18/23 08:08 [From Bactrim] trimethoprim [From Bactrim] Allergy Rash/Hives Verified 12/18/23 08:08 Surgical - Exam Vital Signs Temp Pulse Resp BP Pulse Ox 97.8 F 67 16 133/85 97 12/18/23 08:24 12/18/23 08:24 12/18/23 08:24 12/18/23 08:24 12/18/23 08:24 - General well developed, well nourished, no distress - Eyes normal ocular movement, no icteric - ENT no hearing loss, no congestion - Neck no masses, trachea midline - Respiratory normal respiratory effort, clear to auscultation - Abdomen Abdomen: soft, non tender, no guarding, no rigid, no rebound - Integumentary no rash, no abnormal pigmentation - Neurologic no disoriented, no combative - Psychiatric oriented to time, oriented to person, oriented to place, speech is normal, memory intact Results - Labs 12/19/23 06:03 12/19/23 06:03 Abnormal Lab Results - Last 24 Hours (Table) 12/19/23 12/19/23 Range/Units 06:03 06:03 WBC 19.7 H (3.8-10.6) k/uL Neutrophils # 16.5 H (1.3-7.7) k/uL Monocytes # 1.1 H (0-1.0) k/uL Sodium 135 L (137-145) mmol/L Glucose 111 H (74-99) mg/dL Diabetes panel 12/19/23 Range/Units 06:03 Sodium 135 L (137-145) mmol/L Potassium 4.5 (3.5-5.1) mmol/L Chloride 104 (98-107) mmol/L Carbon Dioxide 26 (22-30) mmol/L BUN 16 (9-20) mg/dL Creatinine 0.75 (0.66-1.25) mg/dL Glucose 111 H (74-99) mg/dL Calcium 9.4 (8.4-10.2) mg/dL Calcium panel 12/19/23 Range/Units 06:03 Calcium 9.4 (8.4-10.2) mg/dL Pituitary panel 12/19/23 Range/Units 06:03 Sodium 135 L (137-145) mmol/L Potassium 4.5 (3.5-5.1) mmol/L Chloride 104 (98-107) mmol/L Carbon Dioxide 26 (22-30) mmol/L BUN 16 (9-20) mg/dL Creatinine 0.75 (0.66-1.25) mg/dL Glucose 111 H (74-99) mg/dL Calcium 9.4 (8.4-10.2) mg/dL Adrenal panel 12/19/23 Range/Units 06:03 Sodium 135 L (137-145) mmol/L Potassium 4.5 (3.5-5.1) mmol/L Chloride 104 (98-107) mmol/L Carbon Dioxide 26 (22-30) mmol/L BUN 16 (9-20) mg/dL Creatinine 0.75 (0.66-1.25) mg/dL Glucose 111 H (74-99) mg/dL Calcium 9.4 (8.4-10.2) mg/dL Assessment and Plan Assessment: Impression: Postoperative urinary retention from cervical fusion surgery. Preoperative BPH. Recommendations: The patient should have follow-up with a few weeks postoperatively to make sure he continues to void well. He should remain on his Flomax 2 tablets daily at bedtime
[2023-12-20] MEDS: HYDROmorphone 1 MG/ML 1 ML SYRINGE IVP PRN ×5 (01:26→23:35)
[2023-12-20] MEDS: oxyCODONE-APAP 5-325MG 1 EACH TAB PO SCH ×4 (06:31→22:59)
[2023-12-20] MEDS: LACTATED RINGERS 1,000 ML IV SCH (06:32)
--- NOTE | 2023-12-20 06:52 | P.PN ---
Progress Note - Text Progress Note Date: 12/20/23 Spine Surgery Clinical and Risk Review Joss Sanchez is a 58-year-old male presenting for evaluation of upper and lower extremity weakness neck pain. Upper extremity paresthesias discoordination. It was my pleasure to have seen and examined Joss. In our visit today we have had a chance to go over subjective complaints, physical examination findings and treatments including the natural course history without intervention and various interventional options. The patients imaging demonstrates cervical stenosis cervical spondylosis cervical deformity myelomalacia. On physical exam, Joss Sanchez demonstrates upper and lower extremity weakness clumsiness fine motor skill deterioration paresthesias dermatomal deficits . I have explained to the patient that as their condition progresses it will cause further neurological deficits and eventual paralysis. Based on the patients imaging, physical exam, and the rapid progression and disabling nature of their symptoms, at this time I recommend surgery in the form or a: Stage II: C2 to T2 decompression and fusion. I discussed the risk and benefits of this procedure at length with Joss Sanchez. The patient and his son agreed to considered pursuing the procedure abovementioned. Prior to surgery, she should follow up with her PCP (Cardio, ID, IM etc) for clearance. Questions were invited and answered, and the patient wishes to proceed as outlined below. Currently, I am recommendin. Stage II C2 to T2 decompression fusion 2. Follow up with PCP for surgical clearance 3. Review of surgical risks and benefits as well as an educational packet on the proposed surgical procedure. Risks: All surgical procedures come with inherent risks, including those related to positioning, anesthesia, intraoperative findings, and postoperative complications. It is important to understand that surgery does not come with any guarantee of a successful outcome as complications and adverse events are always possible. The patient was given a handout in office today discussing the surgical procedu re and risks associated with the intervention, both of which were discussed with the patient. These risks include but are not limited to the following: * Experiencing same, different or even worse symptoms in back, neck, arms, or legs compared to before surgery. * Requiring further surgery or other forms of treatment presently or at some time in the future at same or other levels of the intended spine surgery. * On an extreme but fortunately relatively rare basis severe complication such as blindness, stroke, heart attack, temporary and/or permanent nerve injury, paralysis, coma, or may occur, sometimes without known explanation. * Surgical complications may include but are not limited to risk of infection, fluid accumulation in the surgical dissection site, including a seroma or hematoma, that requires additional surgery, wound drainage, bleeding, new numbness or weakness, vision changes/loss, spinal fluid leakage, non-healing and/or infected incision, headaches, difficulty or inability to swallow, hoarseness, hemopneumothorax, pneumothorax, impotence, retrograde ejaculation, vaginal dryness; injury to nerves, spinal cord, blood vessels, lymphatics or other vital organs (i.e., bowel injury, injury to the great vessels); heterotopic bone formation; complications related to the hardware such as screws, rods, cages including misplaced hardware, device failure, instrumentation at the wrong spine level, hardware fracture/breakage, or hardware loosening; vertebral failure of the spinal column above or below the newly placed hardware; retained surgical instrumentations or devices and the need for further surgery. * Medical risks of the planned spine surgery include but are not limited to generalized Infections to the whole body or local areas outside of the surgical site (sepsis), heart attack, bleeding, anaphylaxis, meningitis, seizure, epilepsy, hearing loss, burn barrett, laceration of the head or other areas of the body, bruising, hypersensitivity of the skin, bladder over distension; allergic reaction; shoulder injury related to positioning; fat, blood and air clots to other areas of the body like heart, lungs, brain; failure of internal organs such as lungs, kidneys, liver and excessive bleeding. If blood transfusions are necessary, note that transfusions may cause intolerance reactions such as anaphylaxis or other complex reactions. * Despite best efforts, the results of spine surgery might not heal in terms of bone, soft tissues such as skin, fascia, ligaments, and joints. Additionally, in order to achieve best possible results, spine surgery may be carried out beyond the initially planned levels and involve decompression, fusion including insertion of hardware at levels other than the original intended area of surgical interest change some portions of the procedure in order to ensure the best possible outcomes. * With spine surgery and spinal fusion, there are different off label uses of instrumentation (devices, implants and hardware) as well as biological substances (bone morphogenic proteins, demineralized bone matrix) as well as using extra bone from allograft sources (i.e. cadaver bone) or autograft (il iac crest bone, ribs, or the spine itself). The patient has been given information about these practices and their inherent risks and benefits. The patient has had a chance to review all the listed information, has been given print outs detailing this information, and has had all his/her questions answered to their satisfaction. It was my pleasure to have seen and examined Joss Sanchez. In our visit today we have had a chance to go over my understanding of our patient's current condition, the natural course history without intervention and various interventional options. Questions were invited and answered, and the patient wishes to proceed as outlined above. I have seen and examined the patient for 25 minutes and we have spent more than 50% of the time in repeat and detailed counseling about the patient's condition, its natural course history with out and as much as can be predicted with surgery and re-review of various surgical treatment options. In conclusion, Joss Sanchez and and his son requested we proceed with the above suggested surgery and are willing to accept risks and limitations of the sug gested surgery as nature of the disease process and our best attempts at treatment for the condition. Thank you again for allowing us to be part of your patient's care. Please don't hesitate to contact me if you have any further questions. Signed and authenticated by: [facility] [address] [facility], [address] [address]
--- NOTE | 2023-12-20 07:48 | P.PN ---
Progress Note - Text Progress Note Date: 12/20/23 Patient seen this morning and examined this morning. He has remained NPO since ID for surgical procedure scheduled for 1200 today, C2-T2 decompression and fusion. Surgical incision to anterior cervical spine, incision is well approximated with glue intact. No active draiange. ZAK drain with no measurable output has been discontinued. Patient is ambulating independently within room. He states his pain is better managed on current regimen.
[2023-12-20] MEDS: FAMOTIDINE 20 MG TAB PO SCH (10:26)
[2023-12-20] MEDS: SENNOSIDES-DOCUSATE SODIUM 1 EACH TAB PO SCH (10:26)
[2023-12-20] MEDS: TAMSULOSIN 0.4 MG CAP.ER.24H PO SCH (10:26)
[2023-12-20] MEDS: CYCLOBENZAPRINE 10 MG TAB PO SCH ×3 (10:26→22:58)
[2023-12-20] MEDS: GABAPENTIN 300 MG CAP PO SCH ×2 (10:26→20:13)
[2023-12-20] MEDS ORDERED: LACTATED RINGERS 1,000 ML IV ONE ×2 (10:35→10:40)
[2023-12-20] MEDS ORDERED: ONDANSETRON 4 MG/2 ML VIAL IVP ONE (10:59)
[2023-12-20] MEDS ORDERED: MIDAZOLAM 2 MG/2 ML VIAL IVP ONE (11:53)
[2023-12-20] MEDS ORDERED: fentaNYL (PF) 50 MCG/ML 2 ML AMP IVP ONE (11:55)
[2023-12-20] MEDS ORDERED: TRANEXAMIC 1,000 MG/100ML-NACL PREMIX BAG ONE (12:18)
[2023-12-20] MEDS ORDERED: PROPOFOL 10 MG/ML 20 ML VIAL IV ONE (12:18)
[2023-12-20] MEDS ORDERED: hydrALAZINE HCL 20 MG/ML 1 ML VIAL ONE (12:18)
[2023-12-20] MEDS ORDERED: fentaNYL (PF) 50 MCG/ML 2 ML AMP ONE (12:18)
[2023-12-20] MEDS ORDERED: ROCURONIUM 10 MG/ML (5 ML VIAL) IV ONE (12:18)
[2023-12-20] MEDS ORDERED: NEOSTIGMINE 1 MG/ML 10 ML VIAL ONE (12:18)
[2023-12-20] MEDS ORDERED: GLYCOPYRROLATE 0.2 MG/ML 2 ML VIAL ONE (12:18)
[2023-12-20] MEDS ORDERED: LIDOCAINE 1% INJ 10MG/ML (20 ML MDV) ONE (12:18)
[2023-12-20] MEDS ORDERED: HYDROmorphone (PF) 1 MG/ML ONE (12:18)
[2023-12-20] MEDS ORDERED: SUCCINYLCHOLINE CHLORIDE 200 MG/10 ML VIAL IV ONE (12:18)
[2023-12-20] MEDS ORDERED: MIDAZOLAM 2 MG/2 ML VIAL ONE (12:18)
[2023-12-20] MEDS ORDERED: SODIUM CHLORIDE 0.9% 50 ML with ceFAZolin 2,000 MG IV ONE ×2 (13:00)
[2023-12-20] MEDS ORDERED: GELATIN SPONGE,ABSORB (LARGE) 1 EACH SPONGE TOPICAL ONE (13:13)
[2023-12-20] MEDS ORDERED: THROMBIN (BOVINE) 5,000 UNIT VIAL TOPICAL ONE (13:14)
--- NOTE | 2023-12-20 14:41 | P.PN ---
Subjective Progress Note Date: 12/20/23 Subjective: Patient seen and examined at bedside. No acute events overnight. Still having significant neck pain. Denies any urinary complaints today Pertinent positives and negatives as discussed above, a complete review of systems was performed and all other systems are negative. Vitals Signs Reviewed. General: Nontoxic, no distress, appears at stated age Derm: Warm, dry Head: Atraumatic, normocephalic, symmetric, c-collar in place, drain in place Eyes: EOMI, no lid lag, anicteric sclera Mouth: No lip lesion, mucus membranes moist Cardiovascular: S1S2 reg, no murmur Lungs: CTA bilateral, no rhonchi, no rales, no accessory muscle use Abdominal: Soft, nontender to palpation, no guarding, no appreciable organomegaly Ext: No gross muscle atrophy, no edema, no contractures Neuro: CN II-XI grossly intact, no focal neuro deficits Psych: Alert, oriented, appropriate affect Data Reviewed Today: Pertinent Labs: No new labs Imaging: No new imaging Assessment and Plan: Status post cervical spine surgery Leukocytosis, anticipated outcome of surgery -Pain control with Flexeril, gabapentin, [place] as needed, Percocet as needed IV Dilaudid as needed, monitor for sedation -Senna daily -SCDs for DVT prophylaxis -Ortho spine surgery note reviewed, pending further surgical intervention today -Repeat CBC tomorrow BPH GERD -Continue Flomax 0.8 daily -Urology note reviewed, outpatient follow-up -Continue famotidine 20 daily Thank you for allowing us to participate in the care of this pleasant patient. Do not hesitate to contact us with questions. Someone can be reached from the [facility] hospitalist group all hours of the day at [phone] or via [employer]. Objective - Vital Signs Vital signs: Vital Signs Temp 98.3 F 12/20/23 10:41 Pulse 77 12/20/23 11:14 Resp 16 12/20/23 11:14 BP 145/87 12/20/23 11:14 Pulse Ox 96 12/20/23 11:14 FiO2 Intake & Output 12/19/23 12/20/23 12/20/23 18:59 06:59 18:59 Intake Total 50 Output Total 30 150 Balance -30 -100 Intake: IV 50 Output: Drainage 5 Anterior Neck 5 Urine 150 Post Void Residual 25 Other: # Voids 1 2 - Labs CBC & Chem 7: 12/19/23 06:03 12/19/23 06:03
[2023-12-20] MEDS ORDERED: VANCOMYCIN 1,000 MG VIAL MISCELLANE ONE (14:43)
--- NOTE | 2023-12-20 15:29 | P.OP ---
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 C4 to 7 stenosis severe Flattening cervical lordosis with cervical kyphosis Cervical myelopathy Neck pain Postoperative Diagnosis: C4 to 7 spondylosis severe C4 to 7 stenosis severe Flattening cervical lordosis with cervical kyphosis Cervical myelopathy Neck pain Procedure(s) Performed: C2-T2 posterolateral instrumented fusion (38726, [id number]) C2-T2 instrumentation (56954) C2-T1 decompressive laminectomy, partial medial facetectomy and foraminotomy (11321, [id number]) Use of IONM Implants: -ANETTE POSTERIOR CERVICAL SYSTEM -MAGNATOS, AUTOGRAFT Anesthesia: GETA Surgeon: Rd Bowen Electrophysiologist #1: Collin Farley (WAS PRESENT AND ASSISTED IN ENTIRE CASE FROM START TO FINISH) Estimated Blood Loss (ml): 150 IV fluids (ml): 1,200 Urine output (ml): 350 Pathology: none sent Condition: stable Disposition: PACU Indications for Procedure: Joss Sanchez is a 58-year-old male presenting for evaluation of upper and lower extremity weakness neck pain. Upper extremity paresthesias discoordination. It was my pleasure to have seen and examined Joss. In our visit today we have had a chance to go over subjective complaints, physical examination findings and treatments including the natural course history without intervention and various interventional options. The patients imaging demonstrates cervical stenosis cervical spondylosis cervical deformity myelomalacia. On physical exam, Joss Sanchez demonstrates upper and lower extremity weakness clumsiness fine motor skill deterioration paresthesias dermatomal deficits . I have explained to the patient that as their condition progresses it will cause further neurological deficits and eventual paralysis. Based on the patients imaging, physical exam, and the rapid progression and disabling nature of their symptoms, at this time I recommend surgery in the form or a: Stage II: C2 to T2 decompression and fusion. I discussed the risk and benefits of this procedure at length with Joss Sanchez. The patient and his son agreed to considered pursuing the procedure abovementioned. Prior to surgery, she should follow up with her PCP (Cardio, ID, IM etc) for clearance. Questions were invited and answered, and the patient wishes to proceed as outlined below. Currently, I am recommendin. Stage II C2 to T2 decompression fusion Description of Procedure: C2-T2 decompression and fusion The patient was seen and examined in the preoperative area. All preoperative protocols were followed. Informed consent was obtained, risks and benefits of the procedure were discussed at length. Risks including bleeding infection damage to the surrounding tissue and risk of reoperation were discussed with the patient. Risk of anesthesia up to and including was discussed with the patient. These are outlined in the risk review. They were willing to accept these risks and all of the risks of surgery. The patient was given a weight- based dose of antibiotics in the form of 2 g Ancef. The patient was seen and evaluated by the anesthesia team who deemed them fit for surgery. The site was marked, the patient was willing to proceed with the procedure. The patient was transferred to the operative suite by the Department of anesthesia. They were then drifted off to sleep by the department anesthesia and GETA was performed. The patient tolerated this well. pre-positioning motors were obtained.Jett in place from the floor. Once confirmation of lines and ventilation Lomax head clamp was placed on the patient and secured and the patient was transferred to a [prone Valente table very carefully] with the Lomax heading machine operator the head was secured and placed into an optimal position x- ray confirmed this position. Post-positioning motors remained stable. All bony prominences including wrists, elbows, axilla, chest, hips, and thighs, and feet were padded very well. Special attention was paid to the genitalia and these were padded accordingly. SCDs were placed on bilateral lower extremities and were connected. Arms were well padded and placed tucked at his side thumbs down. Shoulders were gently taped down to the table.. Once in position, again we confirmed good ventilation capabilities and that lines were running appropriately. The patient's posterior cervical spine was then exposed. 1010s were placed outlining the incision site. Standard alcohol was used to clean the incision site and allowed to dry. C-arm was used to biomark the patient and confirm level for incision which was marked with a skin marker. Operative briefing was performed with all teams and everyone in agreement to proceed. The patient was then prepped and draped in a normal sterile fashion. Timeout was then performed and all parties were in agreement with the procedure to be performed. Midline skin incision made over the previously bio-marked area and dissection taken down midline to the SP of C2-T2. Subperiosteal dissection taken out over the lamina and lateral masses of C2-C7 and TVP of T1 and T2. Once exposure complete, the wound was irrigated and the C-arm brought in for imaging. A penfield 4 was used to bluntly dissect the medial border of C2 pedicle and placed for guidance. C arm used and a naldo hole made for the starting point. The C2 pedicle was then drilled in 2 mm increments to 16 mm using a ball tip feeler in between each drill session to make sure within the 4 perez with a good bottom. Once this was accomplished a screw was selected and placed under lateral fluoroscopic guidance. Screw had a good purchase. This was then repeated on the contralateral side. AP confirmed good placement of both screws. We then proceeded to the T1 and T2 screws bilaterally. A high speed naldo was used to remove the facet joint of C7 and to create a starting point for T1 and similarly, T1 facet for T2. Pedicle finder was then passed into T1 and T2 and imaging taken to confirm placement this was then removed and a tap placed ball-tipped probe was then placed and 4 perez of pedicle fell with good bottom. Screw was then measured and placed intoT1 and T2. This is repeated on the contralateral side. Imaging confirmed good pl acement of all 4 thoracic screws. The wound was then irrigated. Lateral mass screws were then drilled to 12 mm and placed at each level from C3-6. Each had a good bite. Rods were then sized and selected and cut to length. They were bent accordingly and lordosis and to fit the occiput plate. These were then secured into C2 bilaterally and then sequentially reduced into lateral mass screws and T1 and T2 screws without issues. All set screws were placed and were then final tightened and the position. Bilateral laminectomy, facetectomy and foraminotomies were then done from C2-T1 using high speed naldo, kerrison rongeur and upbiting curette. Bilateral laminotomy troughs were made with naldo followed by curette to release ligamentum. Rongure was then used to gently remove the lamina and facets posteriorly without issues. Meticulous hemostasis was performed after.. Motors were run before and after decompression and they remain stable. Good pulsations of the cord were noted after decompression. Foraminotomies then performed with kerrison rongeur and clean up of the laminectomy site. The wound was then copiously irrigated with 3 L of Ancef irrigation followed by 3 L of gentamicin irrigation followed by 3 L of normal sterile saline. Facet joints were drilled at each level to allow for fusion Surgicel was placed over the dura. MagnetOs were placed in the posterior lateral gutters along with autograft.. This was impacted into position for fusion. 2 g of powdered vancomycin was then placed deep within the wound and a deep drain was placed. We then proceeded with layered closure first in the deep fascia with #1 PDS then in the deep fascia followed by a running #1 stratafix. 0 Vicryl was used in the deep subq fascia and an 0 PDS stratafix used in the subdermal layer. Skin zak then approximated skin edges. The wound edges approximated very well. The wound was then cleaned and dressed sterilely with an operative foam dressing 4 x 4 and Tegaderm. The drain had good suction. The patient was placed in a hard cervical collar. The patient was transferred back to their hospital bed atraumatically. Lomax head clamp was removed and pin sites were clear. Drain continued to hold suction. Patient was placed in a hard collar Patient was then awakened and extubated by the department of anesthesia having tolerated the procedure very well with no complications. They were transferred to the postoperative care unit in stable condition.
--- NOTE | 2023-12-20 16:03 | XR ---
EXAMINATION TYPE: XR cervical spine limited, FL guidance operating room Intraoperative/procedural flu oroscopic services were provided. Total fluoroscopy time is 34.9 seconds with a total of 12 submitted images to PACS. Please see the operative/procedural note for further details. DAP: 0.3793 Gycm2
[2023-12-20] MEDS ORDERED: MEPERIDINE 50 MG/ML SYRINGE IVP ONE (16:22)
[2023-12-20] MEDS ORDERED: droPERidol 5 MG/2 ML VIAL IVP ONE (16:24)
[2023-12-20] MEDS ORDERED: diazePAM 2 MG TAB PO PRN (19:11)
--- NOTE | 2023-12-20 19:54 | P.ANPRN ---
Procedure Note - Anesthesia - Invasive Line Left Arterial Line Time Out Performed: Yes (1152) Date of Procedure: 12/20/23 Time of Procedure: 11:53 Location of Patient: PreOp Preparation: Sterile Prep, Sterile Dressing Arterial Line Location: Radial Ultrasound Used: Yes Purpose - Visualization and Identification of Vasculature: Yes Needle Guage: 20g Image Stored and Saved: Yes Narrative: Central line placement per sterile protocol utilized.
[2023-12-21] MEDS: HYDROmorphone 1 MG/ML 1 ML SYRINGE IVP PRN ×4 (01:44→08:21)
[2023-12-21] MEDS: oxyCODONE-APAP 5-325MG 1 EACH TAB PO SCH ×4 (04:59→23:15)
[2023-12-21] MEDS: hydrOXYzine pamoate 25 MG CAP PO PRN (05:00)
[2023-12-21] MEDS: LACTATED RINGERS 1,000 ML IV SCH ×2 (06:31→10:57)
[2023-12-21] MEDS: GABAPENTIN 300 MG CAP PO SCH ×2 (08:28→21:13)
[2023-12-21] MEDS: CYCLOBENZAPRINE 10 MG TAB PO SCH ×3 (08:30→21:13)
[2023-12-21] MEDS: FAMOTIDINE 20 MG TAB PO SCH (08:30)
[2023-12-21] MEDS: SENNOSIDES-DOCUSATE SODIUM 1 EACH TAB PO SCH (08:30)
[2023-12-21] MEDS: TAMSULOSIN 0.4 MG CAP.ER.24H PO SCH (08:30)
--- NOTE | 2023-12-21 09:26 | P.PN ---
Subjective Progress Note Date: 12/21/23 Principal diagnosis: 1. Cervical Myelopathy 2.C3-7 severe stenosis 3. C3-7 spondylosis 4. Upper extremity weakness Patient seen and examined this morning. Upon entering room patient was restless and thrashing around in bed and stating he was in pain. Blood was present over bedding and it was found that the hemovac drain was detached from the tubing and sitting at the end of the bed. Drain has been replaced on tubing, dressing to posterior cervical spine is CDI with hemovac now compressed and patent. Surgical incision to the anterior cervical spine is clean dry and intact. Herndon cervical collar is in place. Continue with pain management and utilize ice packs over shoulders to alleviate pain. Encourage patient to use incentive spirometer and to participate with PT. Objective - Vital Signs Vital signs: Vital Signs Temp 98.5 F 12/21/23 07:14 Pulse 82 12/21/23 07:14 Resp 19 12/21/23 07:14 BP 138/81 12/21/23 07:14 Pulse Ox 93 L 12/21/23 07:14 FiO2 Intake & Output 12/20/23 12/21/23 12/21/23 18:59 06:59 18:59 Intake Total 1775 0 Output Total 1375 1680 Balance 400 -1680 Intake: IV 1775 Oral 0 Output: Drainage 180 Anterior Neck 80 Posterior Neck 100 Urine 1225 1500 Estimated Blood Loss 150 Other: Voiding Method Indwelling Catheter # Voids 2 - Exam Physical Examination General: The patient is awake and alert, in no acute distress Skin: Skin is warm and dry with no obvious rashes or lesions. Surgical in cision to the anterior cervical spine, dressing is clean dry and intact. Surgical dressing to the posterior cervical spine is clean dry and intact with hemovac drain present. Eye: Pupils are equal, round and reactive to light, extra-ocular movements are intact; there is normal conjunctiva bilaterally. Neck: The neck has mild to moderate tenderness around incision, limited range of motion due to surgical procedure and Herndon cervical collar in place. Cardiovascular: There is a regular rate and rhythm. No murmur, rub or gallop is appreciated. Respiratory: Lungs are clear to auscultation, respirations are non-labored, breath sounds are equal. Gastrointestinal: Soft, non-distended, non-tender abdomen. Back: There is no tenderness to palpation in the midline, paralumbar, parathora cic or buttocks region. There is no obvious deformity . Musculoskeletal: ROM limited secondary to pain and stiffness from surgical procedure. Muscle strength in all major muscle groups of bilateral upper extremities 4/5, bilateral lower extremities 5/5. Neurological: CN 2-12 intact. There are no obvious motor or sensory deficits. Movement and coordination equal and intact. Sensory exam to light touch intact C5-T1 and intact from L2-S1. Reflexes 2/4 in bilateral upper and lower extremities. Negative Hoffmans, babinski, and clonus signs. Psychiatric: Cooperative, appropriate mood & affect, normal judgment. - Labs CBC & Chem 7: 12/19/23 06:03 12/19/23 06:03 Assessment and Plan Assessment: Postop day 3: C4-C7 ACDF. Postop Day 1: C2-T2 decompression and fusion 1. Cervical Myelopathy 2.C3-7 severe stenosis 3. C3-7 spondylosis 4. Upper extremity weakness Plan: -Appreciate service delivery management consultant and team management. -Activity: Ambulate QID, OOB all meals, up and about, limit lifting bending twisting to less than 5 lbs. Use walker or cane if needed for stability. -Daily PT/OT, increase ambulation strength and balance. -Herndon c-collar on at all time, may remove to shower. -Pain control: Adequate at this time -Meds: reviewed -GI ppx: senna, Miralax -DC norton when up and about, bedside commode if needed -DVT PPX: OK to restart Heparin tonight -Hygiene: Shower today. Maintain dressing clean and dry. Meticulous cleaning after BMs away from the incision site -Drains: Maintain for now. Continue to monitor and record output q shift. -Encourage IS 10x/hr -Dispo: Anticipate discharge home with homecare tom vs Sunday12/22/23. *I reviewed and discussed this case with my attending Dr. Bowen, whom has reviewed this chart and films and is in agreement with assessment and plan of care as outlined above. I have personally seen and examined the patient, performed the documentation and the assessment and plan as written. Number of minutes spent on the visit: 15m.
[2023-12-21 11:07] LABS: HGB 15.7 g/dL (13.0-17.0); MCH 31.3 pg (27.0-32.0); MCHC 34.1 g/dL (32.0-37.0); MCV 91.8 FL (80.0-97.0); NRBC Per 100 WBC 0 X 10*3/uL (0.00-0.01); Platelet Count 282 X 10*3/uL (140-440); RBC 5.01 X 10*6/uL (4.40-5.60); RDW 13.5 % (11.5-14.5); WBC 20.92 X 10*3/uL (4.50-10.00)
[2023-12-21 11:37] LABS: Basophils # (A) 0.04 X 10*3/uL (0.00-0.10); Basophils % (A) 0.2 %; Eosinophils # (A) 0 X 10*3/uL (0.04-0.35); Eosinophils % (A) 0 %; Lymphocytes # (A) 1.68 X 10*3/uL (0.90-5.00); Monocytes # (A) 2.34 X 10*3/uL (0.20-1.00); Monocytes % (A) 11.2 %; Neutrophils # (A) 16.78 X 10*3/uL (1.80-7.70); Neutrophils % (A) 80.2 %; RBC Morphology Normal (Normal)
--- NOTE | 2023-12-21 14:58 | P.PN ---
Subjective Progress Note Date: 12/21/23 Subjective: Patient seen and examined at bedside. No acute events overnight. Still having significant neck pain. Has a Jett catheter in place. Also very restless and fidgety. y Pertinent positives and negatives as discussed above, a complete review of systems was performed and all other systems are negative. Vitals Signs Reviewed. General: Nontoxic, no distress, appears at stated age Derm: Warm, dry Head: Atraumatic, normocephalic, symmetric, c-collar in place, Hemovac in place Eyes: EOMI, no lid lag, anicteric sclera Mouth: No lip lesion, mucus membranes moist Cardiovascular: S1S2 reg, no murmur Lungs: CTA bilateral, no rhonchi, no rales, no accessory muscle use Abdominal: Soft, nontender to palpation, no guarding, no appreciable organomegaly Ext: No gross muscle atrophy, no edema, no contractures Neuro: CN II-XI grossly intact, no focal neuro deficits Psych: Alert, oriented, appropriate affect Data Reviewed Today: Pertinent Labs: WBC 20.92, hemoglobin 15.7 Imaging: No new imaging Assessment and Plan: Status post cervical spine surgery Leukocytosis, anticipated outcome of surgery -Pain control with Flexeril, gabapentin, [place] as needed, Percocet as needed IV Dilaudid as needed, monitor for sedation -Senna daily -SCDs for DVT prophylaxis -Ortho spine surgery note reviewed, hydroxyzine oral for anxiety as needed, Valium oral as needed for anxiety -Pending discharge to home with home care either tomorrow or day after BPH GERD -Continue Flomax 0.8 daily -Urology consulted, outpatient follow-up -Continue famotidine 20 daily -Jett catheter currently in place, consider voiding trial prior to discharge Thank you for allowing us to participate in the care of this pleasant patient. Do not hesitate to contact us with questions. Someone can be reached from the [facility] hospitalist group all hours of the day at [phone] or via [employer] serve. Objective - Vital Signs Vital signs: Vital Signs Temp 98.5 F 12/21/23 13:10 Pulse 89 12/21/23 13:10 Resp 20 12/21/23 13:10 BP 145/74 12/21/23 13:10 Pulse Ox 95 12/21/23 13:10 FiO2 Intake & Output 0212/21/23 12/21/23 18:59 06:59 18:59 Intake Total 1775 0 Output Total 1375 1680 500 Balance 400 -1680 -500 Intake: IV 1775 Oral 0 Output: Drainage 180 Anterior Neck 80 Posterior Neck 100 Urine 1225 1500 500 Estimated Blood Loss 150 Other: Voiding Method Indwelling Catheter Indwelling Catheter # Voids 2 - Labs CBC & Chem 7: 12/21/23 06:11 12/19/23 06:03 Labs: Abnormal Lab Results - Last 24 Hours (Table) 12/21/23 Range/Units 06:11 WBC 20.92 H (4.50-10.00) X 10*3/uL Immature Gran # 0.08 H (0.00-0.04) X 10*3/uL Neutrophils # 16.78 H (1.80-7.70) X 10*3/uL Monocytes # 2.34 H (0.20-1.00) X 10*3/uL Eosinophils # 0 L (0.04-0.35) X 10*3/uL
[2023-12-21 20:50] LABS: Glucose,Whole Blood 94 mg/dL (70-110)
[2023-12-22] MEDS: HYDROmorphone 1 MG/ML 1 ML SYRINGE IVP PRN ×3 (04:24→22:02)
[2023-12-22] MEDS: oxyCODONE-APAP 5-325MG 1 EACH TAB PO SCH ×3 (05:26→18:21)
[2023-12-22] MEDS: TAMSULOSIN 0.4 MG CAP.ER.24H PO SCH (09:17)
[2023-12-22] MEDS: CYCLOBENZAPRINE 10 MG TAB PO SCH ×3 (09:17→20:21)
[2023-12-22] MEDS: GABAPENTIN 300 MG CAP PO SCH ×2 (09:17→20:20)
[2023-12-22] MEDS: FAMOTIDINE 20 MG TAB PO SCH (09:17)
[2023-12-22] MEDS: SENNOSIDES-DOCUSATE SODIUM 1 EACH TAB PO SCH (09:28)
[2023-12-22 09:39] LABS: Basophils # (A) 0.07 X 10*3/uL (0.00-0.10); Basophils % (A) 0.3 %; Eosinophils # (A) 0.04 X 10*3/uL (0.04-0.35); Eosinophils % (A) 0.2 %; HCT 48.2 % (39.6-50.0); HGB 16.6 g/dL (13.0-17.0); Lymphocytes # (A) 2.03 X 10*3/uL (0.90-5.00); Lymphocytes % (A) 8.8 %; MCH 30.8 pg (27.0-32.0); MCHC 34.4 g/dL (32.0-37.0); MCV 89.4 FL (80.0-97.0); Mean Platelet Volume 10.2 FL (9.5-12.2); Monocytes # (A) 2.53 X 10*3/uL (0.20-1.00); NRBC Per 100 WBC 0 X 10*3/uL (0.00-0.01); Neutrophils # (A) 18.17 X 10*3/uL (1.80-7.70); Neutrophils % (A) 79.2 %; Platelet Count 248 X 10*3/uL (140-440); RBC 5.39 X 10*6/uL (4.40-5.60); RDW 13.4 % (11.5-14.5); WBC 22.96 X 10*3/uL (4.50-10.00)
--- NOTE | 2023-12-22 13:16 | P.PN ---
Subjective Progress Note Date: 12/22/23 Subjective: Patient seen and examined at bedside. No acute events overnight. Still having significant neck pain. Jett catheter now discontinued, still having only minimal urine output. Pertinent positives and negatives as discussed above, a complete review of systems was performed and all other systems are negative. Vitals Signs Reviewed. General: Nontoxic, no distress, appears at stated age Derm: Warm, dry Head: Atraumatic, normocephalic, symmetric, c-collar in place, Hemovac in place Eyes: EOMI, no lid lag, anicteric sclera Mouth: No lip lesion, mucus membranes moist Cardiovascular: S1S2 reg, no murmur Lungs: CTA bilateral, no rhonchi, no rales, no accessory muscle use Abdominal: Soft, nontender to palpation, no guarding, no appreciable organomegaly Ext: No gross muscle atrophy, no edema, no contractures Neuro: CN II-XI grossly intact, no focal neuro deficits Psych: Alert, oriented, appropriate affect Data Reviewed Today: Pertinent Labs: WBC 22.96 Imaging: No new imaging Assessment and Plan: Status post cervical spine surgery Leukocytosis, anticipated outcome of surgery -Pain control with Flexeril, gabapentin, [place] as needed, Percocet as needed IV Dilaudid as needed, monitor for sedation -Senna daily -SCDs for DVT prophylaxis -Ortho spine surgery following, hydroxyzine oral for anxiety as needed, Valium oral as needed for anxiety -Pending discharge to home with home care either tomorrow or day after BPH GERD -Continue Flomax 0.8 daily -Urology consulted, outpatient follow-up -Continue famotidine 20 daily -Jett catheter discontinued, having minimal urine output, asked nurse to get a bladder scan Thank you for allowing us to participate in the care of this pleasant patient. Do not hesitate to contact us with questions. Someone can be reached from the [facility] hospitalist group all hours of the day at [phone] or via [employer]. Objective - Vital Signs Vital signs: Vital Signs Temp 98.2 F 12/22/23 07:24 Pulse 126 H 12/22/23 09:15 Resp 18 12/22/23 07:24 BP 127/87 12/22/23 07:24 Pulse Ox 93 L 12/22/23 08:31 FiO2 Intake & Output 12/21/23 12/22/23 12/22/23 18:59 06:59 18:59 Output Total 1750 820 Balance -1750 -820 Output: Drainage 20 Anterior Neck 20 Urine 1750 800 Uretheral (Jett) 200 Other: Voiding Method Indwelling Catheter Indwelling Catheter Urinal - Labs CBC & Chem 7: 12/22/23 05:54 12/19/23 06:03 Labs: Abnormal Lab Results - Last 24 Hours (Table) 12/22/23 Range/Units 05:54 WBC 22.96 H (4.50-10.00) X 10*3/uL Immature Gran # 0.12 H (0.00-0.04) X 10*3/uL Neutrophils # 18.17 H (1.80-7.70) X 10*3/uL Monocytes # 2.53 H (0.20-1.00) X 10*3/uL
--- NOTE | 2023-12-22 14:24 | P.PN ---
Subjective Progress Note Date: 12/22/23 Principal diagnosis: 1. Cervical Myelopathy 2.C3-7 severe stenosis 3. C3-7 spondylosis 4. Upper extremity weakness Patient seen and examined this morning. patient is resting comfortably in bed. Hemovac drain to the posterior cervical spine was dislodged, no measurable output, this has been discontinued. Surgical incision to the posterior cervical spine, incision is well-approximated with zak intact. New surgical dressing applied. Surgical incision to the anterior cervical spine, dressing is clean dry and intact. Greenwood cervical collar is in place. Continue with pain management and utilize ice packs over shoulders to alleviate pain. Encourage patient to use incentive spirometer. Patient reports that he has been ambulatory within the room without any difficulty. Patient has verbalized that he might want to discharge home later today. No acute concerns at this time. Objective - Vital Signs Vital signs: Vital Signs Temp 98.2 F 12/22/23 07:24 Pulse 126 H 12/22/23 09:15 Resp 18 12/22/23 07:24 BP 127/87 12/22/23 07:24 Pulse Ox 93 L 12/22/23 08:31 FiO2 Intake & Output 12/21/23 12/22/23 12/22/23 18:59 06:59 18:59 Output Total 1750 820 Balance -1750 -820 Output: Drainage 20 Anterior Neck 20 Urine 1750 800 Uretheral ([place]) 200 Other: Voiding Method Indwelling Catheter Indwelling Catheter Urinal - Exam Physical Examination General: The patient is awake and alert, in no acute distress Skin: Skin is warm and dry with no obvious rashes or lesions. Surgical incision to the anterior cervical spine, dressing is clean dry and intact. Surgical dressing to the posterior cervical spine, Edges are well-approximated with zak intact. New surgical dressing applied. Eye: Pupils are equal, round and reactive to light, extra-ocular movements are intact; there is normal conjunctiva bilaterally. Neck: The neck has mild to moderate tenderness around incision, limited range of motion due to surgical procedure and Greenwood cervical collar in place. Cardiovascular: There is a regular rate and rhythm. No murmur, rub or gallop is appreciated. Respiratory: Lungs are clear to auscultation, respirations are non-labored, breath sounds are equal. Gastrointestinal: Soft, non-distended, non-tender abdomen. Back: There is no tenderness to palpation in the midline, paralumbar, parathoracic or buttocks region. There is no obvious deformity . Musculoskeletal: ROM limited secondary to pain and stiffness from surgical procedure. Muscle strength in all major muscle groups of bilateral upper extremities 4/5, bilateral lower extremities 5/5. Neurological: CN 2-12 intact. There are no obvious motor or sensory deficits. Movement and coordination equal and intact. Sensory exam to light touch intact C5-T1 and intact from L2-S1. Reflexes 2/4 in bilateral upper and lower extremities. Negative Hoffmans, babinski, and clonus signs. Psychiatric: Cooperative, appropriate mood & affect, normal judgment. - Labs CBC & Chem 7: 12/22/23 05:54 12/19/23 06:03 Labs: Abnormal Lab Results - Last 24 Hours (Table) 12/22/23 Range/Units 05:54 WBC 22.96 H (4.50-10.00) X 10*3/uL Immature Gran # 0.12 H (0.00-0.04) X 10*3/uL Neutrophils # 18.17 H (1.80-7.70) X 10*3/uL Monocytes # 2.53 H (0.20-1.00) X 10*3/uL Assessment and Plan Assessment: Postop day 4: C4-C7 ACDF. Postop Day 2: C2-T2 decompression and fusion 1. Cervical Myelopathy 2.C3-7 severe stenosis 3. C3-7 spondylosis 4. Upper extremity weakness Plan: -Appreciate otm consultant and team management. -Activity: Ambulate QID, OOB all meals, up and about, limit lifting bending twisting to less than 5 lbs. Use walker or cane if needed for stability. -Daily PT/OT, increase ambulation strength and balance. -Greenwood c-collar on at all time, may remove to shower. -Pain control: Adequate at this time -Meds: reviewed -GI ppx: senna, Miralax -DC norton -DVT PPX: OK to restart Heparin tonight -Hygiene: Shower today. Maintain dressing clean and dry. -Encourage IS 10x/hr -Dispo: Anticipate discharge home later today vs Sunday12/22/23. *I reviewed and discussed this case with my attending Dr. Bowen, whom has reviewed this chart and films and is in agreement with assessment and plan of care as outlined above. I have personally seen and examined the patient, performed the documentation and the assessment and plan as written. Number of minutes spent on the visit: 15m.
[2023-12-23] MEDS: oxyCODONE-APAP 5-325MG 1 EACH TAB PO SCH ×3 (00:27→12:08)
[2023-12-23] MEDS: HYDROmorphone 1 MG/ML 1 ML SYRINGE IVP PRN ×2 (03:13→09:03)
[2023-12-23] MEDS: LACTATED RINGERS 1,000 ML IV SCH (05:47)
[2023-12-23 07:53] VITALS: BP 96/65; PULSE 105; RESP 17; TEMP 98
[2023-12-23] MEDS: CYCLOBENZAPRINE 10 MG TAB PO SCH (09:02)
[2023-12-23] MEDS: GABAPENTIN 300 MG CAP PO SCH (09:02)
[2023-12-23] MEDS: FAMOTIDINE 20 MG TAB PO SCH (09:02)
[2023-12-23] MEDS: SENNOSIDES-DOCUSATE SODIUM 1 EACH TAB PO SCH (09:03)
[2023-12-23] MEDS: TAMSULOSIN 0.4 MG CAP.ER.24H PO SCH (09:03)
[2023-12-23 09:39] LABS: Basophils # (A) 0.1 k/uL (0-0.2); Basophils % (A) 0 %; Eosinophils # (A) 0.2 k/uL (0-0.7); Eosinophils % (A) 1 %; HCT 52.7 % (39.0-53.0); HGB 17.5 gm/dL (13.0-17.5); Lymphocytes # (A) 2.3 k/uL (1.0-4.8); Lymphocytes % (A) 13 %; MCH 31.8 pg (25.0-35.0); MCHC 33.2 g/dL (31.0-37.0); MCV 95.7 fL (80.0-100.0); Monocytes # (A) 1.6 k/uL (0-1.0); Monocytes % (A) 9 %; Neutrophils # (A) 13.8 k/uL (1.3-7.7); Neutrophils % (A) 76 %; Platelet Count 268 k/uL (150-450); RBC 5.51 m/uL (4.30-5.90); RDW 13.1 % (11.5-15.5); WBC 18.3 k/uL (3.8-10.6)
--- NOTE | 2023-12-23 10:48 | P.PN ---
Subjective Progress Note Date: 12/23/23 Principal diagnosis: 1. Cervical Myelopathy 2.C3-7 severe stenosis 3. C3-7 spondylosis 4. Upper extremity weakness Patient seen and examined this morning. Patient is resting comfortably in bed. Surgical incision to the posterior cervical spine, dressing is CDI. Surgical incision to the anterior cervical spine, dressing is CDI. Sawyer cervical collar is in place. Continue with pain management and utilize ice packs over shoulders to alleviate pain. Encourage patient to use incentive spirometer. Patient reports that he has been ambulatory within the room without any difficulty. No acute concerns at this time. Patient is cleared from Orthopedic standpoint for discharge when medically stable. Objective - Vital Signs Vital signs: Vital Signs Temp 98.0 F 12/23/23 07:19 Pulse 105 H 12/23/23 07:19 Resp 17 12/23/23 07:19 BP 96/65 12/23/23 07:19 Pulse Ox 96 12/23/23 07:19 FiO2 Intake & Output 12/22/23 12/23/23 12/23/23 18:59 06:59 18:59 Intake Total 480 Output Total 400 Balance -400 480 Intake: Oral 480 Output: Urine 400 Other: Voiding Method Urinal Urinal # Voids 2 3 - Exam Physical Examination General: The patient is awake and alert, in no acute distress Skin: Skin is warm and dry with no obvious rashes or lesions. Surgical incision to the anterior cervical spine, dressing is clean dry and intact. Surgical dressing to the posterior cervical spine, dressing is CDI. Eye: Pupils are equal, round and reactive to light, extra-ocular movements are intact; there is normal conjunctiva bilaterally. Neck: The neck has mild to moderate tenderness around incision, limited range of motion due to surgical procedure and Sawyer cervical collar in place. Cardiovascular: There is a regular rate and rhythm. No murmur, rub or gallop is appreciated. Respiratory: Lungs are clear to auscultation, respirations are non-labored, breath sounds are equal. Gastrointestinal: Soft, non-distended, non-tender abdomen. Back: There is no tenderness to palpation in the midline, paralumbar, parathoracic or buttocks region. There is no obvious deformity . Musculoskeletal: ROM limited secondary to pain and stiffness from surgical procedure. Muscle strength in all major muscle groups of bilateral upper extremities 4/5, bilateral lower extremities 5/5. Neurological: CN 2-12 intact. There are no obvious motor or sensory deficits. Movement and coordination equal and intact. Sensory exam to light touch intact C5-T1 and intact from L2-S1. Reflexes 2/4 in bilateral upper and lower extremities. Negative Hoffmans, babinski, and clonus signs. Psychiatric: Cooperative, appropriate mood & affect, normal judgment. - Labs CBC & Chem 7: 12/23/23 08:59 12/19/23 06:03 Labs: Abnormal Lab Results - Last 24 Hours (Table) 12/23/23 Range/Units 08:59 WBC 18.3 H (3.8-10.6) k/uL Neutrophils # 13.8 H (1.3-7.7) k/uL Monocytes # 1.6 H (0-1.0) k/uL Assessment and Plan Assessment: Postop day 5: C4-C7 ACDF. Postop Day 3: C2-T2 decompression and fusion 1. Cervical Myelopathy 2.C3-7 severe stenosis 3. C3-7 spondylosis 4. Upper extremity weakness Plan: -Appreciate mining consultant and team management. -Activity: Ambulate QID, OOB all meals, up and about, limit lifting bending twisting to less than 5 lbs. Use walker or cane if needed for stability. -Daily PT/OT, increase ambulation strength and balance. -Sawyer c-collar on at all time, may remove to shower. -Pain control: Adequate at this time -Meds: reviewed -GI ppx: senna, Miralax -DC norton -DVT PPX: OK to restart Heparin tonight -Hygiene: Shower today. Maintain dressing clean and dry. -Encourage IS 10x/hr -Dispo: Patient is cleared from orthopedic standpoint for discharge when medically stable. *I reviewed and discussed this case with my attending Dr. Bowen, whom has reviewed this chart and films and is in agreement with assessment and plan of care as outlined above. I have personally seen and examined the patient, performed the documentation and the assessment and plan as written. Number of minutes spent on the visit: 15m.
--- NOTE | 2023-12-23 11:24 | P.PN ---
Subjective Progress Note Date: 12/23/23 Subjective: Patient seen and examined at bedside. No acute events overnight. Has some neck pain but improved. Having adequate urine output. Pertinent positives and negatives as discussed above, a complete review of systems was performed and all other systems are negative. Vitals Signs Reviewed. General: Nontoxic, no distress, appears at stated age Derm: Warm, dry Head: Atraumatic, normocephalic, symmetric, c-collar in place Eyes: EOMI, no lid lag, anicteric sclera Mouth: No lip lesion, mucus membranes moist Cardiovascular: S1S2 reg, no murmur Lungs: CTA bilateral, no rhonchi, no rales, no accessory muscle use Abdominal: Soft, nontender to palpation, no guarding, no appreciable organomega ly Ext: No gross muscle atrophy, no edema, no contractures Neuro: CN II-XI grossly intact, no focal neuro deficits Psych: Alert, oriented, appropriate affect Data Reviewed Today: Pertinent Labs: WBC 18.3 Imaging: No new imaging Assessment and Plan: Status post cervical spine surgery Leukocytosis, anticipated outcome of surgery, improving -Pain control with Flexeril, gabapentin, [place] as needed, Percocet as needed IV Dilaudid as needed, monitor for sedation -Senna daily -SCDs for DVT prophylaxis -Ortho spine surgery following, hydroxyzine oral for anxiety as needed, Valium oral as needed for anxiety -Possible discharge today BPH GERD -Continue Flomax 0.8 daily -Urology consulted, outpatient follow-up -Continue famotidine 20 daily Patient is medically optimized for discharge home. Thank you for allowing us to participate in the care of this pleasant patient. Do not hesitate to contact us with questions. Someone can be reached from the [facility] hospitalist group all hours of the day at [phone] or via [email or web address]. Objective - Vital Signs Vital signs: Vital Signs Temp 98.0 F 12/23/23 07:19 Pulse 105 H 12/23/23 07:19 Resp 17 12/23/23 07:19 BP 96/65 12/23/23 07:19 Pulse Ox 96 12/23/23 07:19 FiO2 Intake & Output 12/22/23 12/23/23 12/23/23 18:59 06:59 18:59 Intake Total 480 Output Total 400 Balance -400 480 Intake: Oral 480 Output: Urine 400 Other: Voiding Method Urinal Urinal Urinal # Voids 2 3 - Labs CBC & Chem 7: 12/23/23 08:59 12/19/23 06:03 Labs: Abnormal Lab Results - Last 24 Hours (Table) 12/23/23 Range/Units 08:59 WBC 18.3 H (3.8-10.6) k/uL Neutrophils # 13.8 H (1.3-7.7) k/uL Monocytes # 1.6 H (0-1.0) k/uL
== END 2023-12-23 14:12 | disposition home health service (06) | DRG 454 ==
LOC: 2ORMAIN 07:32 → 4SSUR 16:32
PROVIDERS: ADMIT Orthopaedic Surgery; ATTEND Orthopaedic Surgery
PROC: 0RG2071 Fusion of 2 or more Cervical Vertebral Joints with Autologous Tissue Substitute, Posterior Approach, Posterior Column, Open Approach (ICD-10-PCS; 2023-12-18)
PROC: 0RT30ZZ Resection of Cervical Vertebral Disc, Open Approach (ICD-10-PCS; 2023-12-18)
PROC: 0RG20A0 Fusion of 2 or more Cervical Vertebral Joints with Interbody Fusion Device, Anterior Approach, Anterior Column, Open Approach (ICD-10-PCS; principal; 2023-12-18 09:20)
PROC: 00NW0ZZ Release Cervical Spinal Cord, Open Approach (ICD-10-PCS; 2023-12-20)
PROC: 00NX0ZZ Release Thoracic Spinal Cord, Open Approach (ICD-10-PCS; 2023-12-20)
DX: M47.12 Other spondylosis with myelopathy, cervical region (principal); G95.89 Other specified diseases of spinal cord; M50.021 Cervical disc disorder at C4-C5 level with myelopathy; M48.52XA Collapsed vertebra, not elsewhere classified, cervical region, initial encounter for fracture; M48.02 Spinal stenosis, cervical region; M40.40 Postural lordosis, site unspecified; M40.202 Unspecified kyphosis, cervical region; G47.9 Sleep disorder, unspecified; M25.78 Osteophyte, vertebrae; K21.9 Gastro-esophageal reflux disease without esophagitis; D72.829 Elevated white blood cell count, unspecified; G89.29 Other chronic pain; F17.210 Nicotine dependence, cigarettes, uncomplicated; N40.1 Benign prostatic hyperplasia with lower urinary tract symptoms; R33.8 Other retention of urine; Z79.891 Long term (current) use of opiate analgesic; Z79.899 Other long term (current) drug therapy; Z91.040 Latex allergy status; Z88.1 Allergy status to other antibiotic agents; Z87.19 Personal history of other diseases of the digestive system; Z86.718 Personal history of other venous thrombosis and embolism; Z86.14 Personal history of Methicillin resistant Staphylococcus aureus infection
CPT/HCPCS: 72040; 72125; 80048; 85025; 94760

== ENCOUNTER 2024-02-05 08:32 | Day surgery (SDC) | payer BC, OTHER ==
[2024-02-04 10:34] VITALS: BMI 21.4
[2024-02-05] MEDS: LACTATED RINGERS 1,000 ML IV SCH (09:22)
[2024-02-05 09:36] VITALS: TEMP 97.5
[2024-02-05] MEDS ORDERED: MIDAZOLAM 2 MG/2 ML VIAL ONE (10:14)
[2024-02-05] MEDS ORDERED: LIDOCAINE 1% INJ 10MG/ML (20 ML MDV) ONE (10:14)
[2024-02-05] MEDS ORDERED: fentaNYL (PF) 50 MCG/ML 2 ML AMP ONE (10:14)
[2024-02-05] MEDS ORDERED: PROPOFOL 10 MG/ML 20 ML VIAL IV ONE (10:14)
--- NOTE | 2024-02-05 10:33 | P.PCN ---
Date of Procedure: 02/05/24 Procedure(s) Performed: BRIEF HISTORY: Patient is a 58-year-old pleasant white male scheduled for an elective colonoscopy as a part of history of colon polyps. PROCEDURE PERFORMED: Colonoscopy with snare polypectomy. PREOPERATIVE DIAGNOSIS: History of colon polyps. IV sedation per Anesthesia. PROCEDURE: After informed consent was obtained, the patient, was brought into the endoscopy unit. IV sedation was administered by Anesthesia under continuous monitoring. Digital rectal examination was normal. Initially the Olympus CF-160 flexible video colonoscope was then inserted in the rectum, gradually advanced into the cecum without any difficulty. Careful examination was performed as the scope was gradually being withdrawn. Ileocecal valve and the appendiceal orifice were visualized and appeared normal. Prep was excellent. Mucosa of the cecum, ascending colon, appeared normal. In the hepatic flexure there was a 6 mm sessile polyp removed by snare polypectomy. In the proximal transverse colon there was a 1 cm flat polyp removed by snare polypectomy. transverse colon, descending colon, sigmoid colon, and rectum appeared normal. Scattered sigmoid diverticulosis. Retroflexion was performed in the rectum and no lesions were seen. The patient tolerated the procedure well. IMPRESSION: 6 mm hepatic flexure polyp status post polypectomy 1 cm flat proximal transverse colon polyp status post polypectomy Scattered diverticulosis Recommendations. Findings of this examination were discussed with the patient as well as his family. He was advised to follow with the biopsy results. if the biopsy was adenoma he can have a repeat colonoscopy in 3 years . 5
[2024-02-05 11:22] VITALS: BP 131/84; PULSE 64; RESP 18
== END 2024-02-05 11:45 | disposition home or self-care (01) ==
LOC: ORWHC2ENDO 08:32
PROVIDERS: ATTEND Internal Medicine Gastroenterology
DX: Z12.11 Encounter for screening for malignant neoplasm of colon (principal); D12.3 Benign neoplasm of transverse colon; K57.30 Diverticulosis of large intestine without perforation or abscess without bleeding; K21.9 Gastro-esophageal reflux disease without esophagitis; N40.0 Benign prostatic hyperplasia without lower urinary tract symptoms; F17.200 Nicotine dependence, unspecified, uncomplicated; Z86.010 Personal history of colon polyps; Z91.040 Latex allergy status; Z88.2 Allergy status to sulfonamides; Z79.899 Other long term (current) drug therapy; Z98.890 Other specified postprocedural states
CPT/HCPCS: 88305; 45385; J2250; J2001; J3010; J2704

== ENCOUNTER 2024-04-01 13:48 | Emergency (ER) | payer OTHER ==
--- NOTE | 2024-04-01 14:11 | ED ---
Back Pain HPI - General Source: patient, RN notes reviewed Mode of arrival: wheelchair Limitations: no limitations <Ankita Upton - Last Filed: 04/01/24 14:06> - General Source: RN notes reviewed <Angela Jones - Last Filed: 04/01/24 16:48> - General Chief Complaint: Back Pain/Injury Stated Complaint: Abn labs Time Seen by Provider: 04/01/24 14:07 - History of Present Illness Initial Comments: Quick Note: This is a 59-year-old male who presents to the emergency department for back pain. Patient reports chronic lower back pain that seems to be worsening. He had an MRI of the lower back earlier today and is currently waiting to receive the results. States that his legs are numb and it is making it hard for him to walk. He has also been out of his Percocet for 3 days because he is having trouble getting the prescription filled. (Ankita Upton) 59-year-old male with history of chronic back pain presented to ER for back pain. He reports he sees a back specialist for this and had an MRI performed today for this. He is here in the ER because he has had difficulty getting his Percocet prescription filled, last was 3 days ago. He complains of lower worsening back pain as well as bilateral leg pain and numbness. States he has had episodes of urinary incontinence for several months. (Angela Jones) - Related Data Home Medications Medication Instructions Recorded Confirmed Gabapentin [Neurontin] 800 mg PO TID 12/11/23 02/05/24 Ibuprofen [Motrin] 600 mg PO Q8HR PRN 12/11/23 02/05/24 Tamsulosin HCl [Flomax] 0.8 mg PO DAILY 12/11/23 02/05/24 Previous Rx's Medication Instructions Recorded HYDROcodone/APAP 7.5-325MG [[place] 1 tab PO Q12HR PRN 30 Days #60 tab 05/25/22 7.5-325] Cyclobenzaprine [Flexeril] 10 mg PO TID PRN #40 tab 12/23/23 Sennosides/Docusate Sodium [Senna 1 each PO DAILY PRN #20 tablet 12/23/23 Plus 8.6-50 mg Tablet] oxyCODONE HCL/ACETAMINOPHEN 1 tab PO Q6HR PRN 3 Days #12 tab 04/01/24 [Percocet 10-325 mg] Allergies Allergy/AdvReac Type Severity Reaction Status Date / Time latex Allergy Itching Verified 02/05/24 09:03 sulfamethoxazole Allergy Rash/Hives Verified 02/05/24 09:03 [From Bactrim] trimethoprim [From Bactrim] Allergy Rash/Hives Verified 02/05/24 09:03 Review of Systems ROS Other: All systems not noted in ROS Statement are negative. <Anikta Upton - Last Filed: 04/01/24 14:06> ROS Other: All systems not noted in ROS Statement are negative. <Angela Jones - Last Filed: 04/01/24 16:48> ROS Statement: Those systems with pertinent positive or pertinent negative responses have been documented in the HPI. Past Medical History Past Medical History: Deep Vein Thrombosis (DVT), GERD/Reflux, Prostate Disorder Additional Past Medical History / Comment(s): RIGHT SHOULDER PAIN. DIVERTICULITIS. Pain lower back and rt leg/hip. 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 History of Any Multi-Drug Resistant Organisms: MRSA Date of last positivie culture/infection: 11/19/1989 MDRO Source:: RIGHT CHIN AREA Past Surgical History: Orthopedic Surgery Additional Past Surgical History / Comment(s): LYPOMA RT BUTTOCKS/hip removed. COLONSCOPY WITH POLYP REMOVAL. RT ROTATOR CUFF SURGERY X 4-2019 neck surgery dec 20 Past Anesthesia/Blood Transfusion Reactions: No Reported Reaction Additional Past Anesthesia/Blood Transfusion Reaction / Comment(s): no blood tx hx Smoking Status: Current every day smoker - Past Family History Mother Family Medical History: Cancer <Ankita Upton - Last Filed: 04/01/24 14:06> General Exam <Ankita Upton - Last Filed: 04/01/24 14:06> General appearance: alert, in no apparent distress Head exam: Present: atraumatic, normocephalic, normal inspection Eye exam: Present: normal appearance, PERRL, EOMI. Absent: scleral icterus, conjunctival injection, periorbital swelling ENT exam: Present: normal exam, mucous membranes moist Respiratory exam: Present: normal lung sounds bilaterally. Absent: respiratory distress, wheezes, rales, rhonchi, stridor Cardiovascular Exam: Present: regular rate, normal rhythm, normal heart sounds. Absent: systolic murmur, diastolic murmur, rubs, gallop, clicks GI/Abdominal exam: Present: soft, normal bowel sounds. Absent: distended, tenderness, guarding, rebound, rigid Back exam: Present: normal inspection, full ROM, tenderness (Diffuse tenderness along thoracic and lumbar portion of the spine. Full range of motion of bilateral hips and full sensation of bilateral lower extremities. Dorsalis pedis pulses present bilaterally.). Absent: CVA tenderness (R), CVA tenderness (L), rash noted Neurological exam: Present: alert, oriented X3, CN II-XII intact Psychiatric exam: Present: normal affect, normal mood Skin exam: Present: warm, dry, intact, normal color. Absent: rash <Angela Jones - Last Filed: 04/01/24 16:48> - General Exam Comments Initial Comments: Visual Physical Exam Vital signs reviewed General: Well-appearing, nontoxic, no acute distress. Head: Normocephalic, atraumatic Eyes: PERRLA, EOMI ENT: Airway patent Chest: Nonlabored breathing Skin: No visual rash, normal skin tone Neuro: Alert and oriented 3 Musculoskeletal: No gross abnormalities (Ankita Upton) Course Vital Signs 04/01/24 14:21 Temperature 98.3 F Pulse Rate 62 Respiratory 16 Rate Blood Pressure 154/91 O2 Sat by Pulse 98 Oximetry Medical Decision Making <Ankita Upton - Last Filed: 04/01/24 14:06> <Angela Jones - Last Filed: 04/01/24 16:48> - Medical Decision Making I performed the QuickNote portion of this chart. Signed Ankita Upton PA-C. (Ankita Upton) Was pt. sent in by a medical professional or institution ([facility], [facility], urgent care, hospital, or fpc...) When possible be specific @ -No Did you speak to anyone other than the patient for history (EMS, parent, family, police, friend...)? What history was obtained from this source @ -No Did you review nursing and triage notes (agree or disagree)? Why? @ -I reviewed and agree with nursing and triage notes Were old charts reviewed (outside hosp., previous admission, EMS record, old EKG, old radiological studies, urgent care reports/EKG's, fpc records)? Report findings @ -No old charts were reviewed Differential Diagnosis (chest pain, altered mental status, abdominal pain women, abdominal pain men, vaginal bleeding, weakness, fever, dyspnea, syncope, headache, dizziness, GI bleed, back pain, seizure, CVA, palpatations, mental health, musculoskeletal)? @ -Differential Back Pain: Strain, zoster, cauda equina syndrome, epidural abscess, vertebral osteomyelitis, discitis, fracture, subluxation, disc herniation, DJD, spinal stenosis, dissection, AAA, pancreatitis, peptic ulcer disease, pyelonephritis, kidney stone, this is not meant to be an all-inclusive list. EKG interpreted by me (3pts min.). @ -None X-rays interpreted by me (1pt min.). @ -None done CT interpreted by me (1pt min.). @ -None done U/S interpreted by me (1pt. min.). @ -None done What testing was considered but not performed or refused? (CT, X-rays, U/S, labs)? Why? @ -No testing was performed today due to patient had MRI performed today What meds were considered but not given or refused? Why? @ -None Did you discuss the management of the patient with other professionals (professionals i.e. , PA, LODE [employer]ER, lab, RT, psych nurse, social group worker, grounding engineer, teacher, senior loan officer, rn field case manager)? Give summary @ -No Was smoking cessation discussed for >3mins.? @ -No Was critical care preformed (if so, how long)? @ -No Were there social determinants of health that impacted care today? How? (Homelessness, low income, unemployed, alcoholism, drug addiction, transportation, low edu. Level, literacy, decrease access to med. care, [place] [facility], rehab)? @ -No Was there de-escalation of care discussed even if they declined (Discuss DNR or withdrawal of care, Hospice)? DNR status @ -No What co-morbidities impacted this encounter? (DM, HTN, Smoking, COPD, CAD, Cancer, CVA, ARF, Chemo, Hep., AIDS, mental health diagnosis, sleep apnea, morbid obesity)? @ -None Was patient admitted / discharged? Hospital course, mention meds given and route, prescriptions, significant lab abnormalities, going to OR and other pertinent info. @ -Patient was discharged. Patient was seen and evaluated for back pain. Patient has a history of chronic back pain and had MRI performed earlier today for this. Patient is having trouble getting pain medication prescriptio filled and has been out for the past several days. There are no new alarm symptoms present that began recently. As patient had MRI performed earlier today, there is no indication for any further testing at this time. Vitals are within normal limits. Patient is neurovascularly intact. Patient was given oral Percocet for pain and prescribed 3 days worth of pain medication. Maps reviewed. Advised to follow-up with pain management in 1 to 2 days. Strict/return symptoms discussed in detail and patient shows understanding and agrees to plan. Patient discharged in stable condition. Case discussed with Dr. Harris Undiagnosed new problem with uncertain prognosis? @ -No Drug Therapy requiring intensive monitoring for toxicity (Heparin, Nitro, Insulin, Cardizem)? @ -No Were any procedures done? @ -No Diagnosis/symptom? @ -Chronic back pain Acute, or Chronic, or Acute on Chronic? @ -Chronic Uncomplicated (without systemic symptoms) or Complicated (systemic symptoms)? @ -Uncomplicated Side effects of treatment? @ -No Exacerbation, Progression, or Severe Exacerbation? @ -No Poses a threat to life or bodily function? How? (Chest pain, [place], [place], pneumonia, PE, COPD, DKA, ARF, appy, cholecystitis, CVA, Diverticulitis, Homicidal, Suicidal, threat to staff... and all critical care pts) @ -No (Angela Jones) Disposition <Ankita Upton - Last Filed: 04/01/24 14:06> Is patient prescribed a controlled substance at d/c from ED?: Yes When asked, does pt state using other controlled substances?: No If prescribed controlled substance>3 days was MAPS reviewed?: Yes If opioid is for acute pain is fill amount 7 days or less?: Yes If Rx opioid, was Start Talking consent form obtained?: Yes Time of Disposition: 16:42 <Angela Jones - Last Filed: 04/01/24 16:48> Clinical Impression: Low back pain Disposition: HOME SELF-CARE Condition: Stable Instructions (If sedation given, give patient instructions): Chronic Back Pain (DC) Additional Instructions: Please follow-up with paintings conservator. Please return to the [facility] if symptoms worsen or any other concerns. Prescriptions: oxyCODONE HCL/ACETAMINOPHEN [Percocet 10-325 mg] 1 tab PO Q6HR PRN 3 Days #12 tab PRN Reason: Pain Referrals: None,Stated [Primary Care Provider] - 1-2 days
[2024-04-01] MEDS: oxyCODONE-APAP 10-325MG 1 EACH TAB PO STA (16:39)
[2024-04-01 17:28] VITALS: BP 142/89; PULSE 65; RESP 18; TEMP 98.1
== END 2024-04-01 16:56 | disposition home or self-care (01) ==
LOC: EC 13:48
DX: M54.50 Low back pain, unspecified (principal); F17.200 Nicotine dependence, unspecified, uncomplicated; Z91.040 Latex allergy status; Z88.2 Allergy status to sulfonamides; Z88.1 Allergy status to other antibiotic agents
CPT/HCPCS: 99283

== ENCOUNTER → 2024-04-01 | Outpatient (CLI) | payer BC, OTHER ==
--- NOTE | 2024-04-07 19:52 | MR ---
EXAMINATION TYPE: MR lumbar spine wo con DATE OF EXAM: 04/01/2024 COMPARISON: None HISTORY: 59-year-old male Low back pain into corazon lower extremities, numbness TECHNIQUE: Multiplanar, multisequence images of the lumbar spine were acquired without IV contrast. FINDINGS: Vertebral body heights are preserved. Conus medullaris is normal. Moderate multilevel degenerative disc disease with narrowed and bulging discs in variable mild disc d esiccation. Small posterior annular fissures at multiple levels. There is scattered moderate facet arthropathy throughout. Degenerative grade 1 retrolisthesis L1-L2, L2-L3, and L3-L4. Mild heterogeneous marrow signal. No definite suspicious bone marrow replacement. There is some edematous Modic type I endplate change especially L1-L2. Suspect fatty matrix hemangioma L3 and T12 vertebral bodies. Bulging disks impress on the ventral thecal sac but do not cause any significant spinal canal stenosi s. No large focal disc herniation is seen. On the left, changes contribute to moderate neural foraminal stenosis at L2-L3 and L4-L5. Mild at oth er levels. On the right, changes result in moderate to severe neural foraminal stenosis at L4-L5 and moderate at L1-L2. Mild additional levels. No prevertebral or paravertebral soft tissue abnormality is seen. IMPRESSION: 1. Moderate multilevel degenerative disc disease. Associated Modic type I endplate change L1-L2. Scat tered moderate facet arthropathy throughout. Small posterior annular fissures scattered throughout as well. No large focal disc herniation or significant spinal canal stenosis. 2. Degenerative grade 1 retrolisthesis from L1 through L4 levels. 3. Hypertrophic facet arthropathy and bulging disc contributes to a moderate to severe right neurofor aminal stenosis at L4-L5. 4. Additional variable mild and moderate neuroforaminal stenoses as outlined above.
== END | disposition home or self-care (01) ==
LOC: RADMRIMAIN 10:49
PROVIDERS: ATTEND Orthopaedic Surgery
DX: M51.16 Intervertebral disc disorders with radiculopathy, lumbar region (principal); M43.16 Spondylolisthesis, lumbar region; M47.26 Other spondylosis with radiculopathy, lumbar region; M99.73 Connective tissue and disc stenosis of intervertebral foramina of lumbar region
CPT/HCPCS: 72148

== ENCOUNTER 2024-04-10 11:49 | Emergency (ER) | payer OTHER ==
--- NOTE | 2024-04-10 12:14 | ED ---
Back Pain HPI - General Chief Complaint: Back Pain/Injury Stated Complaint: Neck pain, back pain Time Seen by Provider: 04/10/24 12:00 Source: patient Limitations: no limitations - History of Present Illness Initial Comments: This is a 59-year-old male with a past medical history of chronic back and neck pain who presents to the emergency department chief complaint of back pain. Patient states that he is waiting to schedule appoint with pain management on Sunday or Sunday of next week and that he is out of medication has been prescribed for chronic pain. He denies any new falls or injury to his back. He denies saddle anesthesias, endorses bilateral paresthesias of posterior lower extremities. Patient follows with Dr. Bowen where he is in the midst of scheduling spinal surgery. - Related Data Home Medications Medication Instructions Recorded Confirmed Gabapentin [Neurontin] 800 mg PO TID 12/11/23 02/05/24 Ibuprofen [Motrin] 600 mg PO Q8HR PRN 12/11/23 02/05/24 Tamsulosin HCl [Flomax] 0.8 mg PO DAILY 12/11/23 02/05/24 Previous Rx's Medication Instructions Recorded HYDROcodone/APAP 7.5-325MG [[place] 1 tab PO Q12HR PRN 30 Days #60 tab 05/25/22 7.5-325] Cyclobenzaprine [Flexeril] 10 mg PO TID PRN #40 tab 12/23/23 Sennosides/Docusate Sodium [[place]enna 1 each PO DAILY PRN #20 tablet 12/23/23 Plus 8.6-50 mg Tablet] oxyCODONE HCL/ACETAMINOPHEN 1 tab PO Q6HR PRN 3 Days #12 tab 04/01/24 [Percocet 10-325 mg] Allergies Allergy/AdvReac Type Severity Reaction Status Date / Time latex Allergy Itching Verified 04/10/24 12:13 sulfamethoxazole Allergy Rash/Hives Verified 04/10/24 12:13 [From Bactrim] trimethoprim [From Bactrim] Allergy Rash/Hives Verified 04/10/24 12:13 Review of Systems ROS Statement: Those systems with pertinent positive or pertinent negative responses have been documented in the HPI. ROS Other: All systems not noted in ROS Statement are negative. Past Medical History Past Medical History: Deep Vein Thrombosis (DVT), GERD/Reflux, Prostate Disorder Additional Past Medical History / Comment(s): RIGHT SHOULDER PAIN. DIVERTICULITIS. Pain lower back and rt leg/hip. 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 History of Any Multi-Drug Resistant Organisms: MRSA Date of last positivie culture/infection: 11/19/1989 MDRO Source:: RIGHT CHIN AREA Past Surgical History: Orthopedic Surgery Additional Past Surgical History / Comment(s): LYPOMA RT BUTTOCKS/hip removed. COLONSCOPY WITH POLYP REMOVAL. RT ROTATOR CUFF SURGERY X 4-2019 neck surgery dec 20 Past Anesthesia/Blood Transfusion Reactions: No Reported Reaction Additional Past Anesthesia/Blood Transfusion Reaction / Comment(s): no blood tx hx Past Psychological History: No Psychological Hx Reported Smoking Status: Current every day smoker - Past Family History Mother Family Medical History: Cancer General Exam Limitations: no limitations General appearance: alert, in no apparent distress Head exam: Present: atraumatic, normocephalic, normal inspection Eye exam: Present: normal appearance, PERRL, EOMI. Absent: scleral icterus, conjunctival injection, periorbital swelling ENT exam: Present: normal exam, mucous membranes moist Neck exam: Present: normal inspection, tenderness, full ROM (Pain with flexion, extension and rotation of neck) Respiratory exam: Present: normal lung sounds bilaterally. Absent: respiratory distress, wheezes, rales, rhonchi, stridor Cardiovascular Exam: Present: regular rate, normal rhythm, normal heart sounds. Absent: systolic murmur, diastolic murmur, rubs, gallop, clicks GI/Abdominal exam: Present: soft, normal bowel sounds. Absent: distended, tenderness, guarding, rebound, rigid Extremities exam: Present: normal inspection, full ROM, normal capillary refill. Absent: tenderness, pedal edema, joint swelling, calf tenderness Back exam: Present: normal inspection, full ROM (Pain with flexion and extension), tenderness (Over the posterior back along the spine) Neurological exam: Present: alert, oriented X3, CN II-XII intact Psychiatric exam: Present: normal affect, normal mood Skin exam: Present: warm, dry, intact, normal color. Absent: rash Course Vital Signs 04/10/24 12:11 Temperature 97.9 F Pulse Rate 75 Respiratory 16 Rate Blood Pressure 127/84 O2 Sat by Pulse 96 Oximetry Medical Decision Making - Medical Decision Making Was pt. sent in by a medical professional or institution ([facility], [facility], urgent care, hospital, or correction...) When possible be specific @ -No Did you speak to anyone other than the patient for history (EMS, parent, family, police, friend...)? What history was obtained from this source @ -No Did you review nursing and triage notes (agree or disagree)? Why? @ -I reviewed and agree with nursing and triage notes Were old charts reviewed (outside hosp., previous admission, EMS record, old EKG, old radiological studies, urgent care reports/EKG's, correction records)? Report findings @Reviewed patient's previous MRI of the back and previous imaging which revealed degenerative changes Differential Diagnosis (chest pain, altered mental status, abdominal pain women, abdominal pain men, vaginal bleeding, weakness, fever, dyspnea, syncope, headache, dizziness, GI bleed, back pain, seizure, CVA, palpatations, mental health, musculoskeletal)? @ -Differential Musculoskeletal Muscular strain, contusion, ligament sprain, fracture, arthritis, septic arthritis, bursitis, cellulitis, muscle spasm, nerve compression, DVT, arterial occlusion, herpes zoster, electrolyte abnormality, tumor.... This is not meant to be in all inclusive list EKG interpreted by me (3pts min.). @ -None X-rays interpreted by me (1pt min.). @ -None done CT interpreted by me (1pt min.). @ -None done U/S interpreted by me (1pt. min.). @ -None done What testing was considered but not performed or refused? (CT, X-rays, U/S, labs)? Why? @ -Imaging was considered but deferred at this time due to patient was recently receiving an MRI and is scheduling outpatient follow-up with orthopedics for further evaluation. What meds were considered but not given or refused? Why? @ -None Did you discuss the management of the patient with other professionals (professionals i.e. [facility], MACHINE WEDGER, lab, RT, psych nurse, social services counselor, claims director, teacher, school services officer, casework supervisor)? Give summary @ -No Was smoking cessation discussed for >3mins.? @ -No Was critical care preformed (if so, how long)? @ -No Were there social determinants of health that impacted care today? How? (Homelessness, low income, unemployed, alcoholism, drug addiction, transportation, low edu. Level, literacy, decrease access to med. care, [place] [facility], rehab)? @ -No Was there de-escalation of care discussed even if they declined (Discuss DNR or withdrawal of care, Hospice)? DNR status @ -No What co-morbidities impacted this encounter? (DM, HTN, Smoking, COPD, CAD, Cancer, CVA, ARF, Chemo, Hep., AIDS, mental health diagnosis, sleep apnea, morbid obesity)? @ -None Was patient admitted / discharged? Hospital course, mention meds given and route, prescriptions, significant lab abnormalities, going to OR and other pertinent info. @ -59-year-old male with chronic back pain. On discussion with the patient shared decision making imaging will be deferred at this time. On examination patient noted to have bilateral lower extremity paresthesias consistent with sciatica. Additionally patient has pain with range of motion of the back and cervical spine. Patient was offered pain medication in the emergency department but declined due to driving himself. He is provided with a starter pack of Tylenol 3 and instructed to follow-up with pain specialist as soon as possible and continue to follow-up with orthopedic for further evaluation. Occasions answered at bedside. Patient stable for discharge. Undiagnosed new problem with uncertain prognosis? @ -No Drug Therapy requiring intensive monitoring for toxicity (Heparin, Nitro, Insulin, Cardizem)? @ -No Were any procedures done? @ -No Diagnosis/symptom? @ -chronic back pain Acute, or Chronic, or Acute on Chronic? @ -Acute Uncomplicated (without systemic symptoms) or Complicated (systemic symptoms)? @ -Uncomplicated Side effects of treatment? @ -No Exacerbation, Progression, or Severe Exacerbation? @ -No Poses a threat to life or bodily function? How? (Chest pain, [place], [place], pneumonia, PE, COPD, DKA, ARF, appy, cholecystitis, CVA, Diverticulitis, Homicidal, Suicidal, threat to staff... and all critical care pts) @ -No Disposition Clinical Impression: Chronic back pain Narrative: Report to the emergency department if symptoms worsen or do not improve. Follow-up as scheduled with orthopedics. Disposition: HOME SELF-CARE Condition: Good Instructions (If sedation given, give patient instructions): Chronic Back Pain (DC) Is patient prescribed a controlled substance at d/c from ED?: No Referrals: None,Stated [Primary Care Provider] - 1-2 days Time of Disposition: 12:35
[2024-04-10] MEDS: ACET/COD 300 MG/30 MG STARTER PACK 6 TAB BTL PO STA (13:05)
[2024-04-10 13:08] VITALS: BP 127/84; PULSE 75; RESP 16; TEMP 97.9
== END 2024-04-10 13:11 | disposition home or self-care (01) ==
LOC: EC 11:49
DX: G89.29 Other chronic pain (principal); M54.9 Dorsalgia, unspecified; F17.200 Nicotine dependence, unspecified, uncomplicated; Z88.2 Allergy status to sulfonamides; Z88.1 Allergy status to other antibiotic agents; Z91.040 Latex allergy status
CPT/HCPCS: 99283

== ENCOUNTER → 2024-04-11 | Outpatient (CLI) | payer OTHER ==
--- NOTE | 2024-05-01 11:20 | CT ---
EXAMINATION TYPE: CT lumbar spine wo con CT DLP: 628.9 mGycm, Automated exposure control for dose reduction was used. DATE OF EXAM: 04/11/2024 4:43 PM COMPARISON: Correlation MRI lumbar spine 04/01/2024. CLINICAL INDICATION:Male, 59 years old with history of M47.816 SPONDYLOSIS W/O MYELOPATHY OR RADICULO PATH; PHH, chronic low back pain TECHNIQUE: CT of the lumbar spine was performed without contrast. Multiplanar soft tissue and bone windows were obtained and reviewed. . Contrast used: None FINDINGS: Alignment: 5 lumbar type vertebral bodies are present. Trace degenerative retrolisthesis L1 on L2, L3 on L4, L4 on L5. No significant scoliotic curve. Bone: No evidence of fracture or vertebral body height loss. No destructive bone lesion. Normal gold miner alization. Degenerative changes/Canal/Neural foramina: Canal and contents are not well evaluated on CT, especially without intrathecal contrast. No gross in tracanalicular abnormality is suggested. There is mild to moderate multilevel disc bulging and facet arthrosis throughout the lumbar spine, as detailed on the recent MR. This seems to be greatest at the L4-L5 level, where there is moderate to severe bilateral neural foraminal stenosis (right slightly worse than left) and moderate canal stenos is. Milder at other levels. Other: The paraspinous soft tissues show scattered aortobiiliac atherosclerotic calcifications. Image d sacrum and iliac bones appear intact. Mild degenerative changes of the SI joints. IMPRESSION: 1. No evidence of acute lumbar spine fracture, or traumatic malalignment. 2. Multilevel spondylosis, appears most progressed at the L4-L5 level, as described.
== END | disposition home or self-care (01) ==
LOC: RADCTMAIN 15:29
PROVIDERS: ATTEND Orthopaedic Surgery
DX: M47.26 Other spondylosis with radiculopathy, lumbar region (principal)
CPT/HCPCS: 72131

== ENCOUNTER 2024-04-21 15:22 | Emergency (ER) | payer OTHER ==
[2024-04-21 16:20] VITALS: TEMP 97.8
[2024-04-21] MEDS: KETOROLAC 15 MG/ML 1 ML VIAL IM STA (17:22)
[2024-04-21] MEDS: MORPHINE SULFATE 4 MG/ML SYRINGE IM STA (17:25)
[2024-04-21] MEDS: LIDOCAINE 4% PATCH TOPICAL ONE (17:31)
--- NOTE | 2024-04-21 17:50 | ED ---
General Adult HPI - General Chief complaint: Neck Pain/Injury Time Seen by Provider: 04/21/24 17:02 Source: patient, RN notes reviewed, old records reviewed Mode of arrival: ambulatory Limitations: no limitations - History of Present Illness Initial comments: Patient is a 59-year-old male with past medical history remarkable for chronic back pain as well as spine surgery. Follows up with Dr. Bowen. Is well- known to Dr. Bowen and his team. He has been on multiple pain medications since his surgery in December on the cervical spine. Currently is complaining of acute on chronic back pain. States it is somewhat in his lower spine as well as his back. States it is worse with any sort of movement. Had an MRI done 2 weeks ago. States that since before the MRI occurred, when the pain gets very severe he will have an episode of urinary incontinence. States this also happened today. Presents for further evaluation. States he currently has no pa in medications at home. Denies any saddle anesthesias. Endorses lower extremity weakness. Denies any chest pain or shortness of breath or abdominal pain. Presents for further evaluation at this time. Denies any bowel incontinence. - Related Data Home Medications Medication Instructions Recorded Confirmed Gabapentin [Neurontin] 800 mg PO TID 12/11/23 02/05/24 Ibuprofen [Motrin] 600 mg PO Q8HR PRN 12/11/23 02/05/24 Tamsulosin HCl [Flomax] 0.8 mg PO DAILY 12/11/23 02/05/24 Previous Rx's Medication Instructions Recorded HYDROcodone/APAP 7.5-325MG [[place] 1 tab PO Q12HR PRN 30 Days #60 tab 05/25/22 7.5-325] Cyclobenzaprine [Flexeril] 10 mg PO TID PRN #40 tab 12/23/23 Sennosides/Docusate Sodium [Senna 1 each PO DAILY PRN #20 tablet 12/23/23 Plus 8.6-50 mg Tablet] oxyCODONE HCL/ACETAMINOPHEN 1 tab PO Q6HR PRN 3 Days #12 tab 04/01/24 [Percocet 10-325 mg] HYDROcodone/APAP 5-325MG [[place] 1 tab PO Q6HR PRN 3 Days #12 tab 04/21/24 5-325] Lidocaine 5% Patch [Lidoderm 5% 1 patch TOPICAL DAILY PRN 14 Days 04/21/24 Patch] #14 patch Allergies Allergy/AdvReac Type Severity Reaction Status Date / Time latex Allergy Itching Verified 04/21/24 16:20 sulfamethoxazole Allergy Rash/Hives Verified 04/21/24 16:20 [From Bactrim] trimethoprim [From Bactrim] Allergy Rash/Hives Verified 04/21/24 16:20 Review of Systems ROS Statement: Those systems with pertinent positive or pertinent negative responses have been documented in the HPI. Review of Systems: CONST: Denies fever EYES: Denies blurry vision ENT: Denies nasal congestion C/V: Denies Chest pain RESP: Denies shortness of breath GI: Denies abdominal pain : Denies dysuria SKIN: Denies rash. MSK: Endorses acute on chronic back pain NEURO: Denies headache ROS Other: All systems not noted in ROS Statement are negative. Past Medical History Past Medical History: Deep Vein Thrombosis (DVT), GERD/Reflux, Prostate Disorder Additional Past Medical History / Comment(s): RIGHT SHOULDER PAIN. DIVERTICULITIS. Pain lower back and rt leg/hip. 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 History of Any Multi-Drug Resistant Organisms: MRSA Date of last positivie culture/infection: 11/19/1989 MDRO Source:: RIGHT CHIN AREA Past Surgical History: Orthopedic Surgery Additional Past Surgical History / Comment(s): LYPOMA RT BUTTOCKS/hip removed. COLONSCOPY WITH POLYP REMOVAL. RT ROTATOR CUFF SURGERY X 4-2019 neck surgery dec 20 Past Anesthesia/Blood Transfusion Reactions: No Reported Reaction Additional Past Anesthesia/Blood Transfusion Reaction / Comment(s): no blood tx hx Past Psychological History: No Psychological Hx Reported Smoking Status: Current every day smoker Past Alcohol Use History: None Reported Past Drug Use History: Marijuana - Past Family History Mother Family Medical History: Cancer General Exam - General Exam Comments Initial Comments: General: Appears in mild distress secondary to pain. HEAD: Normal with no signs of head trauma. EYES: PERRLA, EOMI, conjunctiva normal, no discharge. ENT: Hearing grossly intact, normal oropharynx. RESPIRATORY: Clear breath sounds bilaterally. C/V: Regular rate and rhythm. S1 and S2 auscultated, peripheral pulses 2+ and intact throughout ABD: Abd is soft, nontender, nondistended EXT: Normal range of motion, no obvious deformity patient has diffuse midline and paraspinal muscle tenderness to palpation of the lumbar spine as well as back. It is chronic for the patient. SKIN: No rashes or lesions observed on exposed skin. NEURO: Alert and oriented x 4. No focal deficits at this time. Limitations: no limitations Course Vital Signs 04/21/24 04/21/24 16:16 18:26 Temperature 97.8 F Pulse Rate 72 68 Respiratory 20 18 Rate Blood Pressure 148/56 135/94 O2 Sat by Pulse 97 94 L Oximetry Medical Decision Making - Medical Decision Making Was pt. sent in by a medical professional or institution (, PA, LPN INSTRUCTOR, urgent care, hospital, or alf...) When possible be specific @ -No Did you speak to anyone other than the patient for history (EMS, parent, family, police, friend...)? What history was obtained from this source @ -No Did you review nursing and triage notes (agree or disagree)? Why? @ -I reviewed and agree with nursing and triage notes Were old charts reviewed (outside hosp., previous admission, EMS record, old EKG, old radiological studies, urgent care reports/EKG's, alf records)? Report findings @ -Old charts reviewed including MRI from March 2024 which revealed no evidence of spinal canal stenosis. No evidence of cauda equina syndrome. Imaging was already reviewed by Dr. Bowen per patient. Does have neuroforaminal stenosis worse on the right with a bulging disc. Differential Diagnosis (chest pain, altered mental status, abdominal pain women, abdominal pain men, vaginal bleeding, weakness, fever, dyspnea, syncope, headache, dizziness, GI bleed, back pain, seizure, CVA, palpatations, mental health, musculoskeletal)? @ -Differential Back Pain: Strain, zoster, cauda equina syndrome, epidural abscess, vertebral osteomyelitis, discitis, fracture, subluxation, disc herniation, DJD, spinal stenosis, dissection, AAA, pancreatitis, peptic ulcer disease, pyelonephritis, kidney stone, this is not meant to be an all-inclusive list. EKG interpreted by me (3pts min.). @ -None done X-rays interpreted by me (1pt min.). @ -None done CT interpreted by me (1pt min.). @ -None done U/S interpreted by me (1pt. min.). @ -None done What testing was considered but not performed or refused? (CT, X-rays, U/S, labs)? Why? @ -Considered imaging however patient had recent MRI and symptoms are unchanged since that MRI. What meds were considered but not given or refused? Why? @ -None Did you discuss the management of the patient with other professionals (professionals i.e. Dr., PA, LPN INSTRUCTOR, lab, RT, psych nurse, aids social worker, state wildlife officer, teacher, ordnance corps officer, field case manager)? Give summary @ -Discussed with on-call orthopedic MLP Lacey Gale fro Dr. Bowen who is well aware of the patient works closely with Dr. Bowen. We discussed his exam findings, story, as well as MRI results. Was in agreement this does not sound like acute cauda equina syndrome as symptoms have been ongoing for multiple weeks and seems more pain related. The MRI shows no evidence of cauda equina. Recommended follow-up with Dr. Bowen in the office. Was smoking cessation discussed for >3mins.? @ -No Was critical care preformed (if so, how long)? @ -No Were there social determinants of health that impacted care today? How? (Homelessness, low income, unemployed, alcoholism, drug addiction, trans portation, low edu. Level, literacy, decrease access to med. care, detention, rehab)? @ -No Was there de-escalation of care discussed even if they declined (Discuss DNR or withdrawal of care, Hospice)? DNR status @ -No What co-morbidities impacted this encounter? (DM, HTN, Smoking, COPD, CAD, Cancer, CVA, ARF, Chemo, Hep., AIDS, mental health diagnosis, sleep apnea, morbid obesity)? @ -Chronic back pain, spine surgery Was patient admitted / discharged? Hospital course, mention meds given and route, prescriptions, significant lab abnormalities, going to OR and other pertinent info. @ -Based on patient's presentation and physical exam, presents with acute on chronic back pain. Does endorse an episode of urinary incontinence but has been ongoing for multiple weeks with an MRI done during these episodes which showed no evidence of cauda equina syndrome. With this being unchanged and patient mostly asking for pain relief at this time, I will provide him with analgesia medications here in the department and contact orthopedic surgery. We discussed possible imaging however as there is no acute new deficits I do not believe this is needed and patient was in agreement this plan. I spoke with Dr. Bowen's midlevel provider, Lacey Gale who is well aware of the patient we discussed his symptoms as well as recent MRI results and she was in agreement that this does not seem like acute cauda equina syndrome and seems more pain related. We will have the patient follow-up with his surgeon as soon as possible and I will provide him with analgesia medications. Patient was in agreement this plan.States he does have follow-up with neurologist tomorrow as well as a scheduled repeat MRI. Recommended he follow- up with this appointment. I will provide the patient with a prescription for [place] 5, Flexeril, lidocaine patch. I instructed the patient to follow up with their PCP in the next 1-3 days. I provided contact information for follow up with Dr. Bowen. I explained that the patient should return to the emergency department if they experience any worsening symptoms. Strict return precautions were discussed with the patient. The patient expressed understanding of these instructions. I answered all questions that the patient had. The patient was discharged home in fair condition with their prescriptions and follow up information. Undiagnosed new problem with uncertain prognosis? @ -No Drug Therapy requiring intensive monitoring for toxicity (Heparin, Nitro, Insulin, Cardizem)? @ -No Were any procedures done? @ -No Diagnosis/symptom? @ -Acute on chronic back pain Acute, or Chronic, or Acute on Chronic? @ -Acute on chronic Uncomplicated (without systemic symptoms) or Complicated (systemic symptoms)? @ -Complicated Side effects of treatment? @ -No Exacerbation, Progression, or Severe Exacerbation? @ -No Poses a threat to life or bodily function? How? (Chest pain, USA, [place], pneumonia, PE, COPD, DKA, ARF, appy, cholecystitis, CVA, Diverticulitis, Homicidal, Suicidal, threat to staff... and all critical care pts) @ -Unlikely Disposition Clinical Impression: Chronic back pain, Lumbar radiculopathy Disposition: HOME SELF-CARE Condition: Fair Instructions (If sedation given, give patient instructions): Chronic Back Pain (DC) Prescriptions: Lidocaine 5% Patch [Lidoderm 5% Patch] 1 patch TOPICAL DAILY PRN 14 Days #14 patch PRN Reason: Pain HYDROcodone/APAP 5-325MG [[place] 5-325] 1 tab PO Q6HR PRN 3 Days #12 tab PRN Reason: Pain Is patient prescribed a controlled substance at d/c from ED?: Yes When asked, does pt state using other controlled substances?: No If prescribed controlled substance>3 days was MAPS reviewed?: Prescribed <3 Days If opioid is for acute pain is fill amount 7 days or less?: Yes If Rx opioid, was Start Talking consent form obtained?: Yes Referrals: Norris Cardona MD [Primary Care Provider] - 1-[address] Bowen DO [Doctor of Osteopathic Medicine] - 1-2 days Time of Disposition: 18:15
[2024-04-21] MEDS: HYDROcodone/APAP 5-325MG 1 EACH TAB PO STA (18:22)
[2024-04-21 18:32] VITALS: BP 135/94; PULSE 68; RESP 18
== END 2024-04-21 18:32 | disposition home or self-care (01) ==
LOC: EC 15:22
DX: G89.29 Other chronic pain (principal); M54.16 Radiculopathy, lumbar region; F17.200 Nicotine dependence, unspecified, uncomplicated; Z88.1 Allergy status to other antibiotic agents; Z88.2 Allergy status to sulfonamides; Z91.040 Latex allergy status
CPT/HCPCS: 99283; 96372; J1885

== ENCOUNTER 2024-05-05 16:46 | Emergency (ER) | payer OTHER ==
[2024-05-05 17:06] VITALS: BP 126/81; PULSE 102; RESP 18; TEMP 97.9
[2024-05-05] MEDS: LIDOCAINE 4% PATCH TOPICAL ONE (17:44)
[2024-05-05] MEDS: KETOROLAC 15 MG/ML 1 ML VIAL IM STA (17:44)
[2024-05-05] MEDS: ORPHENADRINE 30 MG/ML 2 ML VIAL IM STA (17:44)
--- NOTE | 2024-05-05 17:56 | ED ---
General Adult HPI - General Chief complaint: Skin/Abscess/Foreign Body Stated complaint: back pain Time Seen by Provider: 05/05/24 17:07 Source: patient Mode of arrival: wheelchair - History of Present Illness Initial comments: 59-year-old male presenting with chief complaint of neck and back pain. Patient has history of chronic neck and back pain. He had surgery with Dr. Bowen back in December for fusion of the cervical spine. Imaging afterwards showed improved alignment. Patient denies any recent injury or trauma to the neck. States that at times he does have some numbness. Patient states that he recently had some kind of infection of the skin on the back of the neck, he is concerned that it may be coming back. However he was placed on antibiotics and states that the wound has closed since then. He states that he feels like his back is "swollen". He does have some radiation of pain down the left leg. States that he has had episodes of urinary incontinence. Patient was seen in our ER on 04/21 with the same complaints of lower back pain and episodes of urinary incontinence. He states that the symptoms have been ongoing for over a month. Symptoms started prior to his MRI that he received on 04/07. At that visit the ER provider spoke with Dr. Bowen's ROBERTO Flaquita who was familiar with the patient, advised pain medication and outpatient follow-up. Patient states that his symptoms have not changed. No injuries. - Related Data Home Medications Medication Instructions Recorded Confirmed Gabapentin [Neurontin] 800 mg PO TID 12/11/23 02/05/24 Ibuprofen [Motrin] 600 mg PO Q8HR PRN 12/11/23 02/05/24 Tamsulosin HCl [Flomax] 0.8 mg PO DAILY 12/11/23 02/05/24 Previous Rx's Medication Instructions Recorded HYDROcodone/APAP 7.5-325MG [[place] 1 tab PO Q12HR PRN 30 Days #60 tab 05/25/22 7.5-325] Cyclobenzaprine [Flexeril] 10 mg PO TID PRN #40 tab 12/23/23 Sennosides/Docusate Sodium [Senna 1 each PO DAILY PRN #20 tablet 12/23/23 Plus 8.6-50 mg Tablet] oxyCODONE HCL/ACETAMINOPHEN 1 tab PO Q6HR PRN 3 Days #12 tab 04/01/24 [Percocet 10-325 mg] HYDROcodone/APAP 5-325MG [[place] 1 tab PO Q6HR PRN 3 Days #12 tab 04/21/24 5-325] Lidocaine 5% Patch [Lidoderm 5% 1 patch TOPICAL DAILY PRN 14 Days 04/21/24 Patch] #14 patch Ibuprofen [Motrin] 800 mg PO Q8H PRN #30 tab 05/05/24 Lidocaine 5% Patch [Lidoderm 5% 1 patch TOPICAL DAILY PRN #30 patch 05/05/24 Patch] Allergies Allergy/AdvReac Type Severity Reaction Status Date / Time latex Allergy Itching Verified 05/05/24 17:06 sulfamethoxazole Allergy Rash/Hives Verified 05/05/24 17:06 [From Bactrim] trimethoprim [From Bactrim] Allergy Rash/Hives Verified 05/05/24 17:06 Review of Systems ROS Statement: Those systems with pertinent positive or pertinent negative responses have been documented in the HPI. ROS Other: All systems not noted in ROS Statement are negative. Past Medical History Past Medical History: Deep Vein Thrombosis (DVT), GERD/Reflux, Prostate Disorder Additional Past Medical History / Comment(s): RIGHT SHOULDER PAIN. DIVERTICULITIS. Pain lower back and rt leg/hip. 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 History of Any Multi-Drug Resistant Organisms: MRSA Date of last positivie culture/infection: 11/19/1989 MDRO Source:: RIGHT CHIN AREA Past Surgical History: Orthopedic Surgery Additional Past Surgical History / Comment(s): LYPOMA RT BUTTOCKS/hip removed. COLONSCOPY WITH POLYP REMOVAL. RT ROTATOR CUFF SURGERY X 4-2019 neck surgery dec 20 Past Anesthesia/Blood Transfusion Reactions: No Reported Reaction Additional Past Anesthesia/Blood Transfusion Reaction / Comment(s): no blood tx hx Past Psychological History: No Psychological Hx Reported Smoking Status: Current every day smoker Past Alcohol Use History: None Reported Past Drug Use History: Marijuana - Past Family History Mother Family Medical History: Cancer General Exam Limitations: no limitations General appearance: alert, in no apparent distress Head exam: Present: atraumatic, normocephalic Eye exam: Present: normal appearance, EOMI Neck exam: Present: normal inspection. Absent: meningismus Respiratory exam: Absent: respiratory distress Back exam: Present: normal inspection, tenderness, muscle spasm Neurological exam: Present: alert, oriented X3 Psychiatric exam: Present: normal affect, normal mood Skin exam: Present: normal color Course Vital Signs 05/05/24 16:58 Temperature 97.9 F Pulse Rate 102 H Respiratory 18 Rate Blood Pressure 126/81 O2 Sat by Pulse 96 Oximetry Medical Decision Making - Medical Decision Making Was pt. sent in by a medical professional or institution (, [facility], SPUD GRADER, urgent care, hospital, or custodial...) When possible be specific @ -No Did you speak to anyone other than the patient for history (EMS, parent, family, police, friend...)? What history was obtained from this source @ -No Did you review nursing and triage notes (agree or disagree)? Why? @ -I reviewed and agree with nursing and triage notes Were old charts reviewed (outside hosp., previous admission, EMS record, old EKG, old radiological studies, urgent care reports/EKG's, custodial records)? Report findings @ -No old charts were reviewed Differential Diagnosis (chest pain, altered mental status, abdominal pain women, abdominal pain men, vaginal bleeding, weakness, fever, dyspnea, syncope, headache, dizziness, GI bleed, back pain, seizure, CVA, palpatations, mental health, musculoskeletal)? @ - MDM Differential Back Pain: Strain, zoster, cauda equina syndrome, epidural abscess, vertebral osteomyelitis, discitis, fracture, subluxation, disc herniation, DJD, spinal stenosis, dissection, AAA, pancreatitis, peptic ulcer disease, pyelonephritis, kidney stone this is not meant to be an all-inclusive list. EKG interpreted by me (3pts min.). @ -As above X-rays interpreted by me (1pt min.). @ -None done CT interpreted by me (1pt min.). @ -None done U/S interpreted by me (1pt. min.). @ -None done What testing was considered but not performed or refused? (CT, X-rays, U/S, labs)? Why? @ -None What meds were considered but not given or refused? Why? @ -None Did you discuss the management of the patient with other professionals (professionals i.e. , PA, SPUD GRADER, lab, RT, psych nurse, social science analyst, vine pruner, teacher, chief data officer, case consultant)? Give summary @ -I spoke with Dr. Bowen who is extremely familiar with the patient. Given that patient has had no change in his symptoms, he advises pain control and outpatient follow-up Was smoking cessation discussed for >3mins.? @ -No Was critical care preformed (if so, how long)? @ -No Were there social determinants of health that impacted care today? How? (Homelessness, low income, unemployed, alcoholism, drug addiction, transportation, low edu. Level, literacy, decrease access to med. care, fci, rehab)? @ -No Was there de-escalation of care discussed even if they declined (Discuss DNR or withdrawal of care, Hospice)? DNR status @ -No What co-morbidities impacted this encounter? (DM, HTN, Smoking, COPD, CAD, Cancer, CVA, ARF, Chemo, Hep., AIDS, mental health diagnosis, sleep apnea, morbid obesity)? @ -None Was patient admitted / discharged? Hospital course, mention meds given and route, prescriptions, significant lab abnormalities, going to OR and other pertinent info. @ -59-year-old male presenting with chief complaint of neck and back pain. This is chronic for the patient. No new injuries. States that he has had some episodes of urinary incontinence, this has been ongoing since prior to his MRI. No changes in the patient's pain. He also states that he had a previous infection to his neck. On exam the site of the previous infection appears well- healed, no cellulitic changes. Muscle spasms present on examination of the back. Given that the patient has had recent imaging I do not believe that new imaging is warranted today. I spoke with the patient's surgeon Dr. Bowen who advised pain management and outpatient follow-up. Patient is informed of these findings and consultations. He is provided with pain medication and discharged home. Follow-up with PCP. Report back to ER with any new or worsening symptoms. Discussed return parameters and answered all questions. Patient conveyed verbal understanding and agreed to the plan. I discussed this case in detail with my attending Dr. Bang Undiagnosed new problem with uncertain prognosis? @ -No Drug Therapy requiring intensive monitoring for toxicity (Heparin, Nitro, Insulin, Cardizem)? @ -No Were any procedures done? @ -No Diagnosis/symptom? @ -Back pain Acute, or Chronic, or Acute on Chronic? @ -Acute on chronic Uncomplicated (without systemic symptoms) or Complicated (systemic symptoms)? @ -Uncomplicated Side effects of treatment? @ -No Exacerbation, Progression, or Severe Exacerbation? @ -No Poses a threat to life or bodily function? How? (Chest pain, USA, DC, pneumonia, PE, COPD, DKA, ARF, appy, cholecystitis, CVA, Diverticulitis, Homicidal, Suicidal, threat to staff... and all critical care pts) @ -Unlikely Disposition Clinical Impression: Chronic back pain, Lumbar radiculopathy Disposition: HOME SELF-CARE Condition: Fair Instructions (If sedation given, give patient instructions): Chronic Back Pain (DC) Additional Instructions: Follow-up with PCP and surgeon. Report back to ER with any new or worsening symptoms. Prescriptions: Lidocaine 5% Patch [Lidoderm 5% Patch] 1 patch TOPICAL DAILY PRN #30 patch PRN Reason: Pain Ibuprofen [Motrin] 800 mg PO Q8H PRN #30 tab PRN Reason: Pain Is patient prescribed a controlled substance at d/c from ED?: No Referrals: Norris Cardona MD [Primary Care Provider] - 1-[address] Bowen DO [Doctor of Osteopathic Medicine] - 1-2 days Time of Disposition: 18:42
[2024-05-05] MEDS: ACET/COD 300 MG/30 MG STARTER PACK 6 TAB BTL PO STA (19:17)
== END 2024-05-05 19:20 | disposition home or self-care (01) ==
LOC: EC 16:46
DX: G89.29 Other chronic pain (principal); M54.16 Radiculopathy, lumbar region; M54.50 Low back pain, unspecified; F17.200 Nicotine dependence, unspecified, uncomplicated; Z91.040 Latex allergy status; Z88.2 Allergy status to sulfonamides; Z88.8 Allergy status to other drugs, medicaments and biological substances
CPT/HCPCS: 99283; 96372 ×2; J2360; J1885

== ENCOUNTER → 2024-05-14 | Outpatient (CLI) | payer OTHER ==
[2024-05-14 13:24] VITALS: BP 130/81; PULSE 72; RESP 16
--- NOTE | 2024-05-14 14:53 | P.PAINPG ---
PQRS Measure Charge Sheet Comment: A 59 yr old male with a history of severe and chronic LBP > 1 yr secondary to DDD, spondylosis and facet arthropathy without myelopathy presents today for evaluation. Pain level is provoked at 8/10 in intensity, constant, predominantly axial, sharp in character, localized in the R lumbar spine w occasional radiation of pain towards the hip and RLE. Pain is provoked by lifting. Pt states his body "rejects steroids" so injections are ineffective. Pain is alleviated with PT x 6 wks which ended in Nov 2021, physician guided exercises every other day since Nov 2021, medications, topical, heat, ice, medications, repositioning and rest. Oswestry axial pain score of 29. Interventional pain procedures completed include R sh intraarticular x1, C3-C7 ACDF/ C2-T2 Decompression/ Fusion Patient is currently on Weston, Neurontin 300mg QHS, Celebrex QD, Tyl, Ibu, Lidoderm, THC products Patient denies any side effects of the medication(s), denies excessive drowsiness or sleepiness, denies suicidal ideation and reports that the current pain medication is helping to control the pain and improve activities of daily living. Patient denies any motor or sensory deficits. Patient denies any fever or night sweats, denies any change in the bowel movements or urination. Physical Examination: -Constitutional: Cooperative. Not in acute distress . - Neurologic: Cranial nerve II to XII intact. No focal neurological deficits. - Psychatric: Alert & oriented x 3. Matching mood & appropriate affect. Judgment and insight intact. - Musculoskeletal: +R shoulder GH/AC joint line TTP Cervical spine: Muscle bulk/ tone/ strength in the bilateral upper extremities normal Vertebral body tenderness to palpation over Spurling test positive Distraction test positive Facet loading test positive Thoracic spine Muscle bulk / tone/ strength in the bilateral paraspinal muscles normal Vertebral body tender to palpation over Facet loading test positive Lumbar spine: Motor bulk/ tone/ strength lower extremities , thigh and legs : 5/5 Deep tendon reflexes : Normal Knee Jerk. Normal Ankle Jerk . Vertebral body tenderness to palpation over L4 Morales test positive R L4-L5 Lumbar Facet Loading Test positive Straight Leg Raise: positive at 30 degrees right side/ left side Gaenslen's Test positive Sacral spine : Severe tenderness over the Sacroiliac joint: right side / left side Range of motion: Flexion of the lumbar spine <60 degrees Range of motion: Extension of the lumbar spine <20 degrees Gaenslen's Test positive Mariano's Test positive Johnny test: positive right side / left side Thigh Thrust Test Sacral Thrust Test Imaging: MRI non contrast of the lumbar spine from 04/01/24 reviewed Assessment and plan: Chronic LBP secondary to DDD, spondylosis and facet arthropathy without myelopathy Chronic and current use of high-risk medication (Opioids). The patient was counseled about risk of opioid use, psychological risk associated with opioids and was orally counseled to not overuse , divert or sell medications. Pt is to store medication in a safe location. The patient is counseled against driving while using narcotic medications and also not to use alcohol or any illicit recreational drugs. Patient verbalized understanding that the lack of compliance will result in failure to renew narcotic prescription(s) as well as possible discharge from the clinic Diagnoses, prognosis and treatment options including but not limited to physical therapy, surgical interventions, interventional therapies and medication management including narcotics and adjuvant medication were discussed. All patient questions answered MAPS reviewed and it was appropriate. Narcotic agreement form completed today 05/25/22 Prescription for Weston 7.5/325mg #15 NR. Use, side effects, adverse reactions, safe storage discussed. I have spent less than 30 minutes on patient care today. Dr Negrete was available by phone for the evaluation of this patient. The time was used to review the medical records including relevant urine studies and Prescription history (MAPs), review of the available imaging, evaluation and examination of the patient, coordination of care with the medical staff and if applicable referring physicians, as well as creation of the medical record PQRS Narrative: Smoking Status Current every day smoker Narcotic Agreement Date Signed 05/09/22 Hx Alcohol Use (MH) No Home Medications: Ambulatory Orders HYDROcodone/APAP 7.5-325MG [Weston 7.5-325] 1 tab PO Q12HR PRN 30 Days #60 tab 05/25/22 Gabapentin [Neurontin] 800 mg PO TID 12/11/23 Ibuprofen [Motrin] 600 mg PO Q8HR PRN 12/11/23 Tamsulosin HCl [Flomax] 0.8 mg PO DAILY 12/11/23 Cyclobenzaprine [Flexeril] 10 mg PO TID PRN #40 tab 12/23/23 Sennosides/Docusate Sodium [Senna Plus 8.6-50 mg Tablet] 1 each PO DAILY PRN #20 tablet 12/23/23 oxyCODONE HCL/ACETAMINOPHEN [Percocet 10-325 mg] 1 tab PO Q6HR PRN 3 Days #12 tab 04/01/24 HYDROcodone/APAP 5-325MG [Weston 5-325] 1 tab PO Q6HR PRN 3 Days #12 tab 04/21/24 Lidocaine 5% Patch [Lidoderm 5% Patch] 1 patch TOPICAL DAILY PRN 14 Days #14 patch 04/21/24 Ibuprofen [Motrin] 800 mg PO Q8H PRN #30 tab 05/05/24 Lidocaine 5% Patch [Lidoderm 5% Patch] 1 patch TOPICAL DAILY PRN #30 patch 05/05/24 Controlled Substance Measures - Controlled Substance Measures Is patient prescribed a controlled substance at discharge?: Yes When asked, does pt state using other controlled substances?: Yes If prescribed controlled substance>3 days was MAPS reviewed?: Prescribed <3 Days
== END ==
LOC: PNWHC3 12:37
PROVIDERS: ATTEND Specialist
DX: M47.816 Spondylosis without myelopathy or radiculopathy, lumbar region (principal); M51.36 Other intervertebral disc degeneration, lumbar region; F17.200 Nicotine dependence, unspecified, uncomplicated; Z79.891 Long term (current) use of opiate analgesic; Z91.040 Latex allergy status; Z88.2 Allergy status to sulfonamides; Z88.1 Allergy status to other antibiotic agents
CPT/HCPCS: 99211

== ENCOUNTER 2024-05-28 10:45 | Emergency (ER) | payer OTHER ==
[2024-05-28 10:49] VITALS: BP 143/94; PULSE 70; RESP 18; TEMP 97.4
--- NOTE | 2024-05-28 11:08 | ED ---
General Adult HPI - General Chief complaint: Extremity Injury, Upper Stated complaint: Fall-L sided neck/shoulder pain Time Seen by Provider: 05/28/24 10:55 Source: patient, RN notes reviewed, old records reviewed Mode of arrival: wheelchair Limitations: no limitations - History of Present Illness Initial comments: This is a 59-year-old man who is not very pleasant and very demanding. Patient initially stated he was not going to talk to me he wanted me to talk to Dr. Negron's office. I indicated to him that I wanted to hear the history from him he begrudgingly gave me the history. Patient states he had neck surgery in December by Dr. Bowen he states since then he has these episodes where he kind of freezes up and feels like he cannot move and yesterday 1 of these episodes occurred that lasted less than a minute and he fell and hurt his shoulder. Patient states he hurt his left shoulder and it is difficult for him to lift it. Patient states he had an appointment today to see Dr. Bowen and Dr. Bowen stated he should come to the emergency department to have his shoulder evaluated. Patient then stated he hit the side of his head as well when he fell. Patient denies any loss of consciousness from the fall. Patient denies any chest pain or back pain. Patient has abdominal pain. - Related Data Home Medications Medication Instructions Recorded Confirmed Gabapentin [Neurontin] 800 mg PO TID 12/11/23 02/05/24 Ibuprofen [Motrin] 600 mg PO Q8HR PRN 12/11/23 02/05/24 Tamsulosin HCl [Flomax] 0.8 mg PO DAILY 12/11/23 02/05/24 Previous Rx's Medication Instructions Recorded Cyclobenzaprine [Flexeril] 10 mg PO TID PRN #40 tab 12/23/23 Sennosides/Docusate Sodium [Senna 1 each PO DAILY PRN #20 tablet 12/23/23 Plus 8.6-50 mg Tablet] oxyCODONE HCL/ACETAMINOPHEN 1 tab PO Q6HR PRN 3 Days #12 tab 04/01/24 [Percocet 10-325 mg] Lidocaine 5% Patch [Lidoderm 5% 1 patch TOPICAL DAILY PRN 14 Days 04/21/24 Patch] #14 patch Ibuprofen [Motrin] 800 mg PO Q8H PRN #30 tab 05/05/24 Lidocaine 5% Patch [Lidoderm 5% 1 patch TOPICAL DAILY PRN #30 patch 05/05/24 Patch] HYDROcodone/APAP 7.5-325MG [Hartman 1 tab PO Q4H PRN 3 Days #15 tab 05/14/24 7.5-325] Allergies Allergy/AdvReac Type Severity Reaction Status Date / Time latex Allergy Itching Verified 05/28/24 10:49 sulfamethoxazole Allergy Rash/Hives Verified 05/28/24 10:49 [From Bactrim] trimethoprim [From Bactrim] Allergy Rash/Hives Verified 05/28/24 10:49 Review of Systems ROS Statement: Those systems with pertinent positive or pertinent negative responses have been documented in the HPI. ROS Other: All systems not noted in ROS Statement are negative. Past Medical History Past Medical History: Deep Vein Thrombosis (DVT), GERD/Reflux, Prostate Disorder Additional Past Medical History / Comment(s): RIGHT SHOULDER PAIN. DIVERTICULITIS. Pain lower back and rt leg/hip. 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 History of Any Multi-Drug Resistant Organisms: MRSA Date of last positivie culture/infection: 11/19/1989 MDRO Source:: RIGHT CHIN AREA Past Surgical History: Orthopedic Surgery Additional Past Surgical History / Comment(s): LYPOMA RT BUTTOCKS/hip removed. COLONSCOPY WITH POLYP REMOVAL. RT ROTATOR CUFF SURGERY X 4-2019 neck surgery dec 20 Past Anesthesia/Blood Transfusion Reactions: No Reported Reaction Additional Past Anesthesia/Blood Transfusion Reaction / Comment(s): no blood tx hx Past Psychological History: No Psychological Hx Reported Smoking Status: Current every day smoker Past Alcohol Use History: None Reported Past Drug Use History: Marijuana - Past Family History Mother Family Medical History: Cancer General Exam - General Exam Comments Initial Comments: GENERAL: Patient is well-developed and well-nourished. Patient is nontoxic and well- hydrated and is in mild distress. ENT: Neck is soft and supple. No significant lymphadenopathy is noted. Oropharynx is clear. Moist mucous membranes. Neck has full range of motion without eliciting any pain. EYES: The sclera were anicteric and conjunctiva were pink and moist. Extraocular movements were intact and pupils were equal round and reactive to light. Eyelids were unremarkable. SKIN: Skin is clear with no lesions or rashes and otherwise unremarkable. NEUROLOGIC: Patient is alert and oriented x3. Cranial nerves II through XII are grossly intact. Motor and sensory are also intact. Normal speech, volume and content. Symmetrical smile. MUSCULOSKELETAL: Patient will not make much of an attempt to move the right shoulder. 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 Patient has some left proximal humerus tenderness LYMPHATICS: No significant lymphadenopathy is noted PSYCHIATRIC: Normal psychiatric evaluation. Limitations: no limitations Course Vital Signs 05/28/24 10:46 Temperature 97.4 F L Pulse Rate 70 Respiratory 18 Rate Blood Pressure 143/94 O2 Sat by Pulse 98 Oximetry Medical Decision Making - Medical Decision Making Was pt. sent in by a medical professional or institution (, PA, NONPROFIT MANAGER, urgent care, hospital, or care home...) When possible be specific @ -No Did you speak to anyone other than the patient for history (EMS, parent, family, police, friend...)? What history was obtained from this source @ -No Did you review nursing and triage notes (agree or disagree)? Why? @ -I reviewed and agree with nursing and triage notes Were old charts reviewed (outside hosp., previous admission, EMS record, old EKG, old radiological studies, urgent care reports/EKG's, care home records)? Report findings @ -No old charts were reviewed Differential Diagnosis? @ -Differential Musculoskeletal Muscular strain, contusion, ligament sprain, fracture, arthritis, septic arthritis, bursitis, cellulitis, muscle spasm, nerve compression, DVT, arterial occlusion, herpes zoster, electrolyte abnormality, tumor.... This is not meant to be in all inclusive list EKG interpreted by me (3pts min.). @ -As above X-rays interpreted by me (1pt min.). @ -X-ray of the shoulder shows no acute normality CT interpreted by me (1pt min.). @ -CT of the brain and C-spine showed no acute abnormality U/S interpreted by me (1pt. min.). @ -None done What testing was considered but not performed or refused? (CT, X-rays, U/S, labs)? Why? @ -None What meds were considered but not given or refused? Why? @ -None Did you discuss the management of the patient with other professionals (professionals i.e. Dr., PA, NONPROFIT MANAGER, lab, RT, psych nurse, social secretary, contract management specialist, teacher, chief media officer, shelter case manager)? Give summary @ -No Was smoking cessation discussed for >3mins.? @ -No Was critical care preformed (if so, how long)? @ -No Were there social determinants of health that impacted care today? How? (Homelessness, low income, unemployed, alcoholism, drug addiction, transportation, low edu. Level, literacy, decrease access to med. care, longterm, rehab)? @ -No Was there de-escalation of care discussed even if they declined (Discuss DNR or withdrawal of care, Hospice)? DNR status @ -No What co-morbidities impacted this encounter? (DM, HTN, Smoking, COPD, CAD, Cancer, CVA, ARF, Chemo, Hep., AIDS, mental health diagnosis, sleep apnea, morbid obesity)? @ -None Was patient admitted / discharged? Hospital course, mention meds given and route, prescriptions, significant lab abnormalities, going to OR and other pertinent info. @ -Patient had no signs of any traumatic injury patient will be discharged to follow-up with her primary medical care doctor and Dr. Bowen Undiagnosed new problem with uncertain prognosis? @ -No Drug Therapy requiring intensive monitoring for toxicity (Heparin, Nitro, Insulin, Cardizem)? @ -No Were any procedures done? @ -No Diagnosis/symptom? @ -Shoulder contusion Acute, or Chronic, or Acute on Chronic? @ -Acute Uncomplicated (without systemic symptoms) or Complicated (systemic symptoms)? @ -Uncomplicated Side effects of treatment? @ -No Exacerbation, Progression, or Severe Exacerbation? @ -No Poses a threat to life or bodily function? How? (Chest pain, [place], [place], pneumonia, PE, COPD, DKA, ARF, appy, cholecystitis, CVA, Diverticulitis, Homicidal, Suicidal, threat to staff... and all critical care pts) @ -No Disposition Clinical Impression: Shoulder contusion Disposition: HOME SELF-CARE Condition: Good Instructions (If sedation given, give patient instructions): Contusion in Adults (ED) Is patient prescribed a controlled substance at d/c from ED?: No Referrals: Norris Cardona MD [Primary Care Provider] - 1-2 days Time of Disposition: 12:26
--- NOTE | 2024-05-28 11:43 | CT ---
EXAMINATION TYPE: CT brain cspine wo con CT DLP: 2432.3 mGycm, Automated exposure control for dose reduction was used. DATE OF EXAM: 05/28/2024 11:29 AM COMPARISON: CT cervical spine 12/18/2023, cervical spine radiograph 12/20/2023 CLINICAL INDICATION:Male, 59 years old with history of Trauma; Fall, neck and shoulder pain TECHNIQUE: Brain: Multiple axial CT images of the brain were obtained without IV contrast. Cspine: Axial CT images from the skull base to the inferior aspect of T2 we obtained without intraven ous contrast. Coronal and sagittal reformatted images were also reviewed. FINDINGS: Brain: Extra-axial spaces: No abnormal extra-axial fluid collections. Ventricular system: Within normal limits Cerebral parenchyma: No acute intraparenchymal hemorrhage or mass effect. The zapata-white junction is well differentiated. Cerebellum: Unremarkable. Mass effect: No evidence of midline shift. Intracranial vasculature: unremarkable Soft tissues: Normal. Calvarium/osseous structures: No depressed skull fracture. Paranasal sinuses and mastoid air cells: Mild scattered mucosal thickening and or secretions. The mas toid air cells are clear. Visualized orbits: Orbital contents are intact. Cervical spine: Fracture: None. Osseous structures: Similar postsurgical changes with disc fusion cages involving C4-C7. Postsurgical changes from posterior fusion with bilateral pedicular screws and rods involving C2-T2. Laminectomy changes are identified from C3 through C7. Hardware appears intact. Vertebral alignment: Within normal limits. Spinal canal/Neural Foramina: No evidence of significant spinal canal narrowing. Mild to moderate corazon ateral neural foraminal stenosis at C3-C4. Mild bilateral neuroforaminal stenosis at C4-C5. Neck soft tissues: Prevertebral soft tissues are within normal limits. Other: The airway is patent. The lung apices are clear. Surgical clips in the right neck at the level of the thyroid cartilage. IMPRESSION: 1. No acute intracranial process. 2. No evidence of cervical spine fracture. 3. Postsurgical changes from C2 through T2 redemonstrated. Hardware appears intact with appropriate alignment.
--- NOTE | 2024-05-28 11:54 | XR ---
EXAMINATION TYPE: XR shoulder complete LT DATE OF EXAM: 05/28/2024 11:29 AM CLINICAL INDICATION:Male, 59 years old with history of Trauma; COMPARISON: None TECHNIQUE: XR shoulder complete LT; examined in AP, internally rotated and scapular Y projections. FINDINGS: No evidence of acute osseous pathology, joint dislocation, or soft tissue swelling. The remaining po rtions of the visualized chest are unremarkable. Degeneration changes of the acromion, distal clavic le with osteophyte formation. There is osteophyte formation of the glenoid and humeral head. There is joint space narrowing of glenohumeral joint. Fixation changes in the spine appear intact. IMPRESSION: 1. No acute osseous pathology. 2. 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 Consider further evaluation with CT.
== END 2024-05-28 13:10 | disposition home or self-care (01) ==
LOC: EC 10:45
DX: S40.012A Contusion of left shoulder, initial encounter (principal); S43.102A Unspecified dislocation of left acromioclavicular joint, initial encounter; F17.200 Nicotine dependence, unspecified, uncomplicated; Z88.1 Allergy status to other antibiotic agents; Z88.2 Allergy status to sulfonamides; Z91.040 Latex allergy status; W19.XXXA Unspecified fall, initial encounter
CPT/HCPCS: 70450; 72125; 99284

== ENCOUNTER 2024-11-03 14:29 | Emergency (ER) | payer OTHER ==
--- NOTE | 2024-11-03 14:53 | ED ---
General Adult HPI - General Source: patient, RN notes reviewed Mode of arrival: ambulatory Limitations: no limitations <KristinBennie - Last Filed: 11/03/24 14:51> - General Source: patient, RN notes reviewed Mode of arrival: ambulatory Limitations: no limitations <Tomasa Silva - Last Filed: 11/03/24 17:39> - General Stated complaint: L leg swelling/pain Time Seen by Provider: 11/03/24 14:48 - History of Present Illness Initial comments: Quick note 59-year-old male presents emergency department with chief complaint of left leg increasing pain. Patient states he only has Pain from a DVT he states he sees Dr. Robbins. Patient states that the pain is now up into his thigh causing worsening pain, swelling. He is not on any current anticoagulants because of recent surgery. Pain or shortness of breath. (Bennie Foster) 59-year-old male presented to ER for evaluation of left calf pain. Patient reports a history of DVTs and was following up with Dr. Robbins. He was taken off of anticoagulations due to recent prostate surgery. States for past couple of days he has had an increase of discomfort to his left medial calf. Patient states he is scheduled to follow-up with Dr. Sanders for further evaluation and treatment. Patient reports swelling to his medial calf. He denies any chest pain, shortness of breath, dizziness, lightheadedness or other complaints. (Tomasa Silva) - Related Data Home Medications Medication Instructions Recorded Confirmed Tamsulosin HCl [Flomax] 0.4 mg PO BID 12/11/23 05/28/24 Celecoxib [CeleBREX] 200 mg PO BID 05/28/24 05/28/24 Citalopram Hydrobromide [CeleXA] 20 mg PO DAILY 05/28/24 05/28/24 Gabapentin 600 mg PO TID 05/28/24 05/28/24 Orphenadrine Citrate [Orphenadrine 100 mg PO BID PRN 05/28/24 05/28/24 Citrate ER] Previous Rx's Medication Instructions Recorded Ibuprofen [Motrin] 800 mg PO Q8H PRN #30 tab 05/05/24 Lidocaine 5% Patch [Lidoderm 5% 1 patch TOPICAL DAILY PRN #30 patch 05/05/24 Patch] HYDROcodone/APAP 7.5-325MG [Indiahoma 1 tab PO Q4H PRN 3 Days #15 tab 05/14/24 7.5-325] Allergies Allergy/AdvReac Type Severity Reaction Status Date / Time latex Allergy Itching Verified 11/03/24 14:56 sulfamethoxazole Allergy "Greco Verified 11/03/24 14:56 [From Bactrim] Skin" trimethoprim [From Bactrim] Allergy "Greco Verified 11/03/24 14:56 Skin" Review of Systems ROS Other: All systems not noted in ROS Statement are negative. <Bennie Foster - Last Filed: 11/03/24 14:51> ROS Other: All systems not noted in ROS Statement are negative. <Tomasa Silva - Last Filed: 11/03/24 17:39> ROS Statement: Those systems with pertinent positive or pertinent negative responses have been documented in the HPI. Past Medical History Past Medical History: Deep Vein Thrombosis (DVT), GERD/Reflux, Prostate Disorder Additional Past Medical History / Comment(s): RIGHT SHOULDER PAIN. DIVERTICULITIS. Pain lower back and rt leg/hip. 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 History of Any Multi-Drug Resistant Organisms: MRSA Date of last positivie culture/infection: 11/19/1989 MDRO Source:: RIGHT CHIN AREA Past Surgical History: Orthopedic Surgery Additional Past Surgical History / Comment(s): LYPOMA RT BUTTOCKS/hip removed. COLONSCOPY WITH POLYP REMOVAL. RT ROTATOR CUFF SURGERY X 4-2019 neck surgery dec 20 Past Anesthesia/Blood Transfusion Reactions: No Reported Reaction Additional Past Anesthesia/Blood Transfusion Reaction / Comment(s): no blood tx hx Past Psychological History: No Psychological Hx Reported Smoking Status: Current every day smoker Past Alcohol Use History: None Reported Past Drug Use History: Marijuana - Past Family History Mother Family Medical History: Cancer <Bennie Foster - Last Filed: 11/03/24 14:51> General Exam <Bennie Foster - Last Filed: 11/03/24 14:51> General appearance: alert, in no apparent distress Respiratory exam: Present: normal lung sounds bilaterally. Absent: respiratory distress, wheezes, rales, rhonchi, stridor Cardiovascular Exam: Present: regular rate, normal rhythm, normal heart sounds. Absent: systolic murmur, diastolic murmur, rubs, gallop, clicks Extremities exam: Present: tenderness (Left medial calf. There is minimal ecchymosis present. ), other (2+ left PT and DP pulse. Patient has full range of motion.) Neurological exam: Present: alert, oriented X3, CN II-XII intact Skin exam: Present: warm, dry, intact, normal color. Absent: rash <Tomasa Silva - Last Filed: 11/03/24 17:39> - General Exam Comments Initial Comments: Visual Physical Exam Vital signs reviewed General: Well-appearing, nontoxic, no acute distress. Head: Normocephalic, atraumatic Eyes: PERRLA, EOMI ENT: Airway patent Chest: Nonlabored breathing Skin: No visual rash, normal skin tone Neuro: Alert and oriented 3 Musculoskeletal: No gross abnormalities (Bennie Foster) Course Vital Signs 11/03/24 11/03/24 14:54 16:15 Temperature 98.6 F 98.2 F Pulse Rate 61 69 Respiratory 18 18 Rate Blood Pressure 123/81 136/76 O2 Sat by Pulse 95 96 Oximetry Medical Decision Making <Bennie Foster - Last Filed: 11/03/24 14:51> - Radiology Data Radiology results: report reviewed, image reviewed <Tomasa Silva - Last Filed: 11/03/24 17:39> - Medical Decision Making I completed the quick note portion of this chart signed Bennie Foster PA-C (Bennie Foster) Was pt. sent in by a medical professional or institution ([facility], SCIENCE [employer]ACULTY MEMBER, urgent care, hospital, or halfway...) When possible be specific @ -No Did you speak to anyone other than the patient for history (EMS, parent, family, police, friend...)? What history was obtained from this source @ -No Did you review nursing and triage notes (agree or disagree)? Why? @ -I reviewed and agree with nursing and triage notes Were old charts reviewed (outside hosp., previous admission, EMS record, old EKG, old radiological studies, urgent care reports/EKG's, halfway records)? Report findings @ -No old charts were reviewed Differential Diagnosis (chest pain, altered mental status, abdominal pain women, abdominal pain men, vaginal bleeding, weakness, fever, dyspnea, syncope, headache, dizziness, GI bleed, back pain, seizure, CVA, palpatations, mental health, musculoskeletal)? @ -Differential Musculoskeletal: Muscular strain, contusion, ligament sprain, fracture, arthritis, septic arthritis, bursitis, cellulitis, muscle spasm, nerve compression, DVT, arterial occlusion, herpes zoster, electrolyte abnormality, tumor.... This is not meant to be in all inclusive list EKG interpreted by me (3pts min.). @ -None done X-rays interpreted by me (1pt min.). @ -None done CT interpreted by me (1pt min.). @ -None done U/S interpreted by me (1pt. min.). @ -Ultrasound venous Doppler left lower extremity showing a superficial thrombophlebitis to the medial calf. No evidence of DVT. What testing was considered but not performed or refused? (CT, X-rays, U/S, labs)? Why? @ -None What meds were considered but not given or refused? Why? @ -None Did you discuss the management of the patient with other professionals (professionals i.e. , PA, SCIENCE FACULTY MEMBER, lab, RT, psych nurse, social studies teacher, cardiac exercise specialist, teacher, disability hearing officer, casework manager)? Give summary @ -No Was smoking cessation discussed for >3mins.? @ -I discussed smoking cessation for greater than 3 minutes. The risk of smoking were discussed with the patient including but not limited to risks of cancer, stroke, coronary artery disease and COPD. Also discussed with patient were multiple methods of quitting smoking. Lastly we discussed the financial cost of smoking. Was critical care preformed (if so, how long)? @ -No Were there social determinants of health that impacted care today? How? (Homelessness, low income, unemployed, alcoholism, drug addiction, transportation, low edu. Level, literacy, decrease access to med. care, halfway, rehab)? @ -No Was there de-escalation of care discussed even if they declined (Discuss DNR or withdrawal of care, Hospice)? DNR status @ -No What co-morbidities impacted this encounter? (DM, HTN, Smoking, COPD, CAD, Cancer, CVA, ARF, Chemo, Hep., AIDS, mental health diagnosis, sleep apnea, morbid obesity)? @ -History of DVTs. Not currently on anticoagulation therapy due to recent prostate surgery. Was patient admitted / discharged? Hospital course, mention meds given and route, prescriptions, significant lab abnormalities, going to OR and other pertinent info. @ -Discharge. 59-year-old male presenting to the ER for evaluation of left calf discomfort. Patient originally seen as a quick note where ultrasound was ordered. Upon my evaluation, patient resting comfortably in no signs of acute distress. Vitals stable. Patient is neurovascularly intact. Left lower extremity venous Doppler ultrasound showing a superficial thrombophlebitis to area of concern. No evidence of DVT. Distance of superficial thrombolytics was discussed with ultrasound state it is greater than 5 cm away from deep system. Patient is stable for discharge. Conservative treatment options discussed. Patient states he is following up with Dr. Sanders for further care. Strict return parameters discussed. Patient discharged in stable condition with follow-up to PCP. Patient verbally expressed understanding and agreement with care plan. Case discussed with ED attending, Dr. Hill. Undiagnosed new problem with uncertain prognosis? @ -No Drug Therapy requiring intensive monitoring for toxicity (Heparin, Nitro, Insulin, Cardizem)? @ -No Were any procedures done? @ -No Diagnosis/symptom? @ -Superficial thrombophlebitis Acute, or Chronic, or Acute on Chronic? @ -Acute Uncomplicated (without systemic symptoms) or Complicated (systemic symptoms)? @ -Uncomplicated Side effects of treatment? @ -No Exacerbation, Progression, or Severe Exacerbation? @ -No Poses a threat to life or bodily function? How? (Chest pain, [place], [place], pneumonia, PE, COPD, DKA, ARF, appy, cholecystitis, CVA, Diverticulitis, Homicidal, Suicidal, threat to staff... and all critical care pts) @ -Low at this time. (Tomasa Silva) Disposition <Bennie Foster - Last Filed: 11/03/24 14:51> Is patient prescribed a controlled substance at d/c from ED?: No Time of Disposition: 15:56 <Tomasa Silva - Last Filed: 11/03/24 17:39> Clinical Impression: Superficial thrombophlebitis Disposition: HOME SELF-CARE Condition: Stable Instructions (If sedation given, give patient instructions): Superficial Thrombophlebitis (ED) Additional Instructions: Follow-up with Dr. Sanders. I recommend compression, warm compresses and [id number] ibuprofen for symptom control. Return to the ER for any new or worsening concerns. Referrals: Norris Cardona MD [Primary Care Provider] - 1-2 days Ricky Sanders DO [STAFF PHYSICIAN] - 1-2 days
[2024-11-03 14:56] VITALS: RESP 18
--- NOTE | 2024-11-03 15:35 | US ---
EXAMINATION TYPE: US venous doppler duplex LE LT DATE OF EXAM: 11/03/2024 3:18 PM COMPARISON: NONE CLINICAL INDICATION: Male, 59 years old with history of prior DVT, worsening pain; Pain left lower le g, Pain TECHNIQUE: The lower extremity deep venous system is examined utilizing real time linear array sonog consuelo with graded compression, color doppler sonography, and spectral doppler. SIDE PERFORMED: Left FINDINGS: VESSELS IMAGED: Common Femoral Vein Deep Femoral Vein Greater Saphenous Vein * Femoral Vein Popliteal Vein Small Saphenous Vein * Proximal Calf Veins (* superficial vessels) Left Leg: Appears negative for DVT Left medial lower leg at patient's area of pain - thrombus seen within superficial vessel IMPRESSION: 1. No ultrasound evidence for deep venous thrombosis. 2. Superficial thrombophlebitis in the area of the medial leg. [facility], , 11/03/2024 3:33 PM
[2024-11-03 16:16] VITALS: BP 136/76; PULSE 69; TEMP 98.2
== END 2024-11-03 16:16 | disposition home or self-care (01) ==
LOC: EC 14:29
DX: I80.02 Phlebitis and thrombophlebitis of superficial vessels of left lower extremity (principal); F17.200 Nicotine dependence, unspecified, uncomplicated; Z91.040 Latex allergy status; Z88.1 Allergy status to other antibiotic agents; Z88.2 Allergy status to sulfonamides
CPT/HCPCS: 99283; 99406

== ENCOUNTER → 2024-12-19 | Outpatient (CLI) | payer OTHER ==
--- NOTE | 2024-12-19 11:47 | CT ---
EXAMINATION TYPE: CT abdomen pelvis w con DATE OF EXAM: 12/19/2024 11:35 AM COMPARISON: 07/21/2020. CLINICAL INDICATION: Male, 59 years old with history of R10.9 UNSPECIFIED ABDOMINAL PAIN, Generalized abdominal pain., TECHNIQUE: Contiguous axial scanning of the abdomen and pelvis following administration of 100 ml Iso maria elena 300 IV contrast. Delayed images through the kidneys and coronal/sagittal reconstructions perform ed. CT DLP: 438.3 mGycm, Automated exposure control for dose reduction was used. FINDINGS: The heart is upper limits of normal in size without pericardial effusion. Prominent hazy de pendent opacities in the lower lungs suggesting atelectasis. No pleural effusion. Liver mildly enlarged at 19.1 cm. There are a couple areas of peripheral hyperenhancement in the righ t liver lobe, probably areas of vascular shunting. Portal venous system is patent. No biliary ductal dilatation. Gallbladder, adrenal glands, right kidney, small spleen, and pancreas within normal limits. Unchanged fullness of the left renal pelvis and proximal left ureter, probably relating to an extrare nal pelvis given stability from 2019. No dilated small bowel, free fluid, or free air. No mesenteric or retroperitoneal lymphadenopathy. Unable to clearly identify the appendix. No secondary findings of acute appendicitis in the right low er quadrant. Oral contrast progressed into the mid transverse colon. There is mild to moderate circumferential wall thickening from the splenic flexure of the colon down to the rectum. Prominent stool distends the rectum up to 6.3 cm wide. Correlate to exclude a concurre nt constipation. Mild circumferential bladder wall thickening. Prostate gland measures slightly larger 4.8 cm wide. No abnormal fluid collection in the pelvis or pelvic lymphadenopathy. Bones: Scattered mild to moderate spondylitic changes throughout the lumbar spine. Degenerative grade 1 retrolisthesis L1-L2, L2-L3, L3-L4. IMPRESSION: 1. MILD TO MODERATE CIRCUMFERENTIAL WALL THICKENING FROM THE SPLENIC FLEXURE OF THE COLON DOWN TO THE RECTUM. CORRELATE FOR AN INFECTIOUS OR INFLAMMATORY COLITIS. IBD IS IN THE DIFFERENTIAL. NO ABSCESS OR FREE AIR. 2. Prominent solid stool distending the rectum up to 6.3 cm wide. Correlate to exclude a concurrent c onstipation. 3. Mild circumferential bladder wall thickening which may be chronic for the patient. Correlate to ex clude cystitis. [facility], Workstation: [employer]IA C, 12/19/2024 11:44 AM
== END | disposition home or self-care (01) ==
LOC: RADCTMAIN 09:29
PROVIDERS: ATTEND Internal Medicine Gastroenterology
DX: R19.5 Other fecal abnormalities (principal); R16.0 Hepatomegaly, not elsewhere classified; K63.89 Other specified diseases of intestine
CPT/HCPCS: 74177; Q9967

== ENCOUNTER 2025-01-06 15:53 | Emergency (ER) | payer OTHER ==
[2025-01-06 16:52] VITALS: RESP 18
--- NOTE | 2025-01-06 17:30 | ED ---
General Adult HPI - General Chief complaint: Recheck/Abnormal Lab/Rx Stated complaint: L leg issue Time Seen by Provider: 01/06/25 17:01 Source: patient Mode of arrival: ambulatory Limitations: no limitations - History of Present Illness Initial comments: 59-year-old male presenting chief complaint of left groin pain. States that this has been ongoing and worsening for the last 2 weeks. He has pain with range of motion and ambulating. No fevers or chills. Patient claims that there is redness and swelling to the area. No bleeding or discharge. No vomiting. He still having bowel movements. No urinary symptoms. He does currently have superficial thrombophlebitis in the leg, he saw his vascular surgeon Dr. Sanders earlier today who evaluated the area and thought it may be a hernia. No testicular pain or swelling. - Related Data Home Medications Medication Instructions Recorded Confirmed Tamsulosin HCl [Flomax] 0.4 mg PO BID 12/11/23 01/09/25 Gabapentin 600 mg PO TID 05/28/24 01/09/25 Apixaban [Eliquis] 5 mg PO BID 01/02/25 01/09/25 Dicyclomine HCl 10 mg PO TID PRN 01/02/25 01/09/25 Hydrocodone/Acetaminophen 1 tab PO Q8H PRN 01/02/25 01/09/25 [Hydrocodone/Acetaminophen 7.5-325] methocarbamoL [Robaxin-750] 750 mg PO TID PRN 01/02/25 01/09/25 Previous Rx's Medication Instructions Recorded Lidocaine 5% Patch [Lidoderm 5% 1 patch TOPICAL DAILY PRN #30 patch 05/05/24 Patch] Allergies Allergy/AdvReac Type Severity Reaction Status Date / Time latex Allergy Itching Verified 01/09/25 10:42 sulfamethoxazole Allergy "[place] Verified 01/09/25 10:42 [From Bactrim] Skin" trimethoprim [From Bactrim] Allergy "Greco Verified 01/09/25 10:42 Skin" Review of Systems ROS Statement: Those systems with pertinent positive or pertinent negative responses have been documented in the HPI. ROS Other: All systems not noted in ROS Statement are negative. Past Medical History Past Medical History: Deep Vein Thrombosis (DVT), GERD/Reflux, Prostate Disorder Additional Past Medical History / Comment(s): RIGHT SHOULDER PAIN. DIVERTICULITIS. Pain lower back and rt leg/hip. 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 History of Any Multi-Drug Resistant Organisms: MRSA Date of last positivie culture/infection: 11/19/1989 MDRO Source:: RIGHT CHIN AREA Past Surgical History: Orthopedic Surgery Additional Past Surgical History / Comment(s): LYPOMA RT BUTTOCKS/hip removed. COLONSCOPY WITH POLYP REMOVAL. RT ROTATOR CUFF SURGERY X 4-2019 neck surgery b 12/12 Past Anesthesia/Blood Transfusion Reactions: No Reported Reaction Additional Past Anesthesia/Blood Transfusion Reaction / Comment(s): no blood tx hx Past Psychological History: No Psychological Hx Reported Smoking Status: Current every day smoker - Past Family History Mother Family Medical History: Cancer General Exam Limitations: no limitations General appearance: alert, in no apparent distress Head exam: Present: atraumatic, normocephalic, normal inspection Eye exam: Present: normal appearance, EOMI Neck exam: Present: normal inspection. Absent: meningismus Respiratory exam: Absent: respiratory distress Cardiovascular Exam: Present: regular rate GI/Abdominal exam: Present: tenderness (Left groin) Neurological exam: Present: alert, oriented X3 Psychiatric exam: Present: normal affect, normal mood Skin exam: Present: warm, dry, normal color Course Vital Signs 01/06/25 01/06/25 16:48 18:05 Temperature 97.9 F 99.2 F Pulse Rate 76 65 Respiratory 18 18 Rate Blood Pressure 129/79 114/67 O2 Sat by Pulse 94 L 94 L Oximetry Medical Decision Making - Medical Decision Making Was pt. sent in by a medical professional or institution (, PA, LATHE PULLER, urgent care, hospital, or halfway...) When possible be specific @ -[No] Did you speak to anyone other than the patient for history (EMS, parent, family, police, friend...)? What history was obtained from this source @ -[No] Did you review nursing and triage notes (agree or disagree)? Why? @ -[I reviewed and agree with nursing and triage notes] Were old charts reviewed (outside hosp., previous admission, EMS record, old E KG, old radiological studies, urgent care reports/EKG's, halfway records)? Report findings @ -[No old charts were reviewed] Differential Diagnosis (chest pain, altered mental status, abdominal pain women, abdominal pain men, vaginal bleeding, weakness, fever, dyspnea, syncope, headache, dizziness, GI bleed, back pain, seizure, CVA, palpatations, mental health, musculoskeletal)? @ -Differential Musculoskeletal Muscular strain, contusion, ligament sprain, fracture, arthritis, septic arthr itis, bursitis, cellulitis, muscle spasm, nerve compression, DVT, arterial occlusion, herpes zoster, electrolyte abnormality, tumor.... This is not meant to be in all inclusive list EKG interpreted by me (3pts min.). @ -[As above] X-rays interpreted by me (1pt min.). @ -[None done] CT interpreted by me (1pt min.). @ -CT shows no evidence for acute process. No findings in the left groin to explain the patient's pain. No evidence for colitis on today's exam U/S interpreted by me (1pt. min.). @ -[None done] What testing was considered but not performed or refused? (CT, X-rays, U/S, labs)? Why? @ -[None] What meds were considered but not given or refused? Why? @ -[None] Did you discuss the management of the patient with other professionals (professionals i.e. , PA, LATHE PULLER, lab, RT, psych nurse, social sciences instructor, time study observer, teacher, agricultural extension officer, case investigator)? Give summary @ -[No] Was smoking cessation discussed for >3mins.? @ -[No] Was critical care preformed (if so, how long)? @ -[No] Were there social determinants of health that impacted care today? How? (Homelessness, low income, unemployed, alcoholism, drug addiction, transportation, low edu. Level, literacy, decrease access to med. care, fpc, rehab)? @ -[No] Was there de-escalation of care discussed even if they declined (Discuss DNR or withdrawal of care, Hospice)? DNR status @ -[No] What co-morbidities impacted this encounter? (DM, HTN, Smoking, COPD, CAD, Cancer, CVA, ARF, Chemo, Hep., AIDS, mental health diagnosis, sleep apnea, morbid obesity)? @ -[None] Was patient admitted / discharged? Hospital course, mention meds given and route, prescriptions, significant lab abnormalities, going to OR and other pert inent info. @ -59-year-old male presenting with chief complaint of left groin pain. Patient was seen by his vascular surgeon earlier today for the issue. Was told he may have a hernia and came to the ER. On exam the no evidence of any obvious bulge to indicate hernia. Patient does have some tenderness to the area. No erythema or induration. He did have a recent ultrasound which showed super ficial thrombophlebitis of the lower extremity. CT is obtained which shows no evidence for acute process. Patient is educated on today's findings. He will follow-up with his PCP and his orthopedic provider. Follow-up with PCP. Report back to ER with any new or worsening symptoms. Discussed return parameters and answered all questions. Patient conveyed verbal understanding and agreed to the plan. I discussed this case in detail with my attending Dr. Ho Undiagnosed new problem with uncertain prognosis? @ -[No] Drug Therapy requiring intensive monitoring for toxicity (Heparin, Nitro, Insulin, Cardizem)? @ -[No] Were any procedures done? @ -[No] Diagnosis/symptom? @ -Groin pain Acute, or Chronic, or Acute on Chronic? @ -Acute Uncomplicated (without systemic symptoms) or Complicated (systemic symptoms)? @ -Uncomplicated Side effects of treatment? @ -[No] Exacerbation, Progression, or Severe Exacerbation? @ -[No] Poses a threat to life or bodily function? How? (Chest pain, [place], [place], pneumonia, PE, COPD, DKA, ARF, appy, cholecystitis, CVA, Diverticulitis, Homicidal, Herminia cidal, threat to staff... and all critical care pts) @ -Low likelihood - Lab Data Result diagrams: 01/06/25 17:32 01/06/25 17:32 Lab Results 01/06/25 01/06/25 Range/Units 17:32 17:32 WBC 16.3 H (3.8-10.6) k/uL RBC 5.01 (4.30-5.90) m/uL Hgb 15.8 (13.0-17.5) gm/dL Hct 47.2 (39.0-53.0) % MCV 94.2 (80.0-100.0) fL MCH 31.5 (25.0-35.0) pg MCHC 33.4 (31.0-37.0) g/dL RDW 13.4 (11.5-15.5) % Plt Count 277 (150-450) k/uL MPV 7.2 Neutrophils % 69 % Lymphocytes % 23 % Monocytes % 4 % Eosinophils % 2 % Basophils % 0 % Neutrophils # 11.3 H (1.3-7.7) k/uL Lymphocytes # 3.7 (1.0-4.8) k/uL Monocytes # 0.7 (0-1.0) k/uL Eosinophils # 0.3 (0-0.7) k/uL Basophils # 0.1 (0-0.2) k/uL Sodium 137 (137-145) mmol/L Potassium 4.6 (3.5-5.1) mmol/L Chloride 104 (98-107) mmol/L Carbon Dioxide 22 (22-30) mmol/L Anion Gap 11 mmol/L BUN 19 (9-20) mg/dL Creatinine 0.90 (0.66-1.25) mg/dL Est GFR (CKD-EPI)AfAm >90 (>60 ml/min/1.73 sqM) Est GFR (CKD-EPI)NonAf >90 (>60 ml/min/1.73 sqM) Glucose 94 (74-99) mg/dL Calcium 9.4 (8.4-10.2) mg/dL Total Bilirubin 0.7 (0.2-1.3) mg/dL AST 35 (17-59) U/L ALT 21 (4-49) U/L Alkaline Phosphatase 77 (38-126) U/L Total Protein 7.3 (6.3-8.2) g/dL Albumin 4.2 (3.5-5.0) g/dL Disposition Clinical Impression: Groin pain Disposition: HOME SELF-CARE Condition: Good Instructions (If sedation given, give patient instructions): Groin Pain (ED) Additional Instructions: Follow-up with PCP and orthopedics. Report back to ER with any new or worsening symptoms. Is patient prescribed a controlled substance at d/c from ED?: Yes When asked, does pt state using other controlled substances?: No If prescribed controlled substance>3 days was MAPS reviewed?: Prescribed <3 Days If opioid is for acute pain is fill amount 7 days or less?: Yes Referrals: Norris Cardona MD [Primary Care Provider] - 1-2 days Bennie Oleary DO [Doctor of Osteopathic Medicine] - 1-2 days Time of Disposition: 19:30
[2025-01-06 17:52] LABS: Basophils # (A) 0.1 k/uL (0-0.2); Basophils % (A) 0 %; Eosinophils # (A) 0.3 k/uL (0-0.7); Eosinophils % (A) 2 %; HCT 47.2 % (39.0-53.0); HGB 15.8 gm/dL (13.0-17.5); Lymphocytes # (A) 3.7 k/uL (1.0-4.8); Lymphocytes % (A) 23 %; MCH 31.5 pg (25.0-35.0); MCHC 33.4 g/dL (31.0-37.0); MCV 94.2 fL (80.0-100.0); Mean Platelet Volume 7.2; Monocytes # (A) 0.7 k/uL (0-1.0); Monocytes % (A) 4 %; Neutrophils # (A) 11.3 k/uL (1.3-7.7); Neutrophils % (A) 69 %; Platelet Count 277 k/uL (150-450); RBC 5.01 m/uL (4.30-5.90); RDW 13.4 % (11.5-15.5); WBC 16.3 k/uL (3.8-10.6)
[2025-01-06 18:05] VITALS: BP 114/67; PULSE 65; TEMP 99.2
[2025-01-06 18:07] LABS: ALT 21 U/L (4-49); African American GFR (CKD) >90 (>60 ml/min/1.73 sqM); Anion Gap 11 mmol/L; Blood Urea Nitrogen 19 mg/dL (9-20); Calcium 9.4 mg/dL (8.4-10.2); Carbon Dioxide 22 mmol/L (22-30); Chloride 104 mmol/L (98-107); Glucose 94 mg/dL (74-99); Non-African American GFR(CKD) >90 (>60 ml/min/1.73 sqM); Sodium 137 mmol/L (137-145); Total Bilirubin 0.7 mg/dL (0.2-1.3)
[2025-01-06] MEDS: KETOROLAC 15 MG/ML 1 ML VIAL IVP STA (18:07)
[2025-01-06 18:11] LABS: AST 35 U/L (17-59); Albumin 4.2 g/dL (3.5-5.0); Potassium 4.6 mmol/L (3.5-5.1); Total Protein 7.3 g/dL (6.3-8.2)
[2025-01-06 18:12] LABS: Alkaline Phosphatase 77 U/L (38-126)
--- NOTE | 2025-01-06 18:55 | CT ---
EXAMINATION TYPE: CT abdomen pelvis w con DATE OF EXAM: 01/06/2025 6:33 PM COMPARISON: 12/19/2024 CLINICAL INDICATION: Male, 59 years old with history of L groin pain; Left groin pain. TECHNIQUE: Axial CT abdomen pelvis w con;Sagittal and coronal reformats were created on a separate w orkstation. Contrast used:100 ml mL of Isovue 300 with IV Contrast, (none if empty) Oral contrast used: without Oral Contrast (none if empty) CT DLP: 679.5 mGycm, Automated exposure control for dose reduction was used. FINDINGS: LOWER CHEST: Unremarkable ABDOMEN LIVER: Unremarkable GALLBLADDER AND BILE DUCTS: Unremarkable. PANCREAS: Unremarkable. SPLEEN: Unremarkable. ADRENAL GLANDS: Unremarkable. KIDNEYS AND URETERS: No evidence of hydronephrosis or renal calculus. The ureters are unremarkable. PELVIS BLADDER: No evidence for wall thickening or mass given limitations of exam. REPRODUCTIVE: Unremarkable. ABDOMEN & PELVIS STOMACH AND BOWEL: No evidence of bowel obstruction. PERITONEUM/RETROPERITONEUM: No evidence of pneumoperitoneum or free fluid. VASCULATURE: No evidence of aortic aneurysm. MUSCULOSKELETAL: No acute osseous abnormalities LYMPH NODES: No gross evidence for lymphadenopathy. SOFT TISSUE/ABDOMINAL WALL: Unremarkable IMPRESSION: No evidence for acute process. No finding the left groin to explain patient's pain. No evidence for c olitis in today's exam. [facility], , 01/06/2025 6:52 PM
== END 2025-01-06 19:42 | disposition home or self-care (01) ==
LOC: EC 15:53
DX: R10.32 Left lower quadrant pain (principal); F17.200 Nicotine dependence, unspecified, uncomplicated; Z88.1 Allergy status to other antibiotic agents; Z88.2 Allergy status to sulfonamides; Z91.040 Latex allergy status
CPT/HCPCS: 36415; 80053; 85025; 74177; 99284; 96374; J1885; Q9967

== ENCOUNTER 2025-01-12 12:42 | Day surgery (SDC) | payer OTHER ==
[2025-01-02 14:15] VITALS: BMI 23.5
[~2025-01-12 12:42] MED LIST changes: -ACETAMINOPHEN TAB 500 MG TAB PO PRN; -DEXAMETHASONE SOD PHOSPHATE 4 MG/ML 1 ML VIAL IV ONE; -GABAPENTIN 300 MG CAP PO PRN; -MIDAZOLAM 2 MG/2 ML VIAL IV PRN; -ONDANSETRON 4 MG/2 ML VIAL IVP ONE; -ONDANSETRON 4 MG/2 ML VIAL IVP PRN; -TRANEXAMIC 1,000 MG/100ML-NACL 1,000 MG in SALINE 1 100ML.BAG IVPB PRN
[2025-01-12] MEDS: IV FLUID CONTINUATION 1,000 ML IV ONE (13:24)
[2025-01-12 13:26] VITALS: TEMP 98.4
[2025-01-12] MEDS: LACTATED RINGERS 1,000 ML IV SCH (13:27)
[2025-01-12] MEDS ORDERED: PROPOFOL 10 MG/ML 20 ML VIAL IV ONE (14:03)
[2025-01-12] MEDS ORDERED: LIDOCAINE 1% INJ 10MG/ML (20 ML MDV) ONE (14:03)
--- NOTE | 2025-01-12 14:21 | P.OP ---
Date of Procedure: 01/12/25 Preoperative Diagnosis: GI bleed Hemorrhoids Postoperative Diagnosis: Hemorrhoids Procedure(s) Performed: Colonoscopy Anesthesia: MAC Surgeon: Allan Randall Pathology: none sent Condition: stable Disposition: PACU Description of Procedure: The patient was placed on the endoscopy table in the lateral position. He received IV sedation. Digital rectal exam was performed. This revealed internal/external hemorrhoids. Flexible colonoscope was then placed patient anus passed throughout the entire colon. The ileocecal valve was visualized. The cecum, ascending and transverse colon were normal. The descending and sigmoid colon appeared normal. Scope was back the rectum and this appeared normal. Scope withdrawn for the patient and internal/external hemorrhoids were noted. It is presumed that the patient had bleeding from hemorrhoids.
[2025-01-12 14:35] VITALS: RESP 16
[2025-01-12 14:46] VITALS: BP 116/77; PULSE 69
== END 2025-01-12 14:59 | disposition home or self-care (01) ==
LOC: ORWHC2ENDO 12:42
PROVIDERS: ATTEND Surgery
DX: K64.4 Residual hemorrhoidal skin tags (principal); K64.8 Other hemorrhoids; Z79.01 Long term (current) use of anticoagulants; F17.200 Nicotine dependence, unspecified, uncomplicated
CPT/HCPCS: 45378; J2003; J2704

== ENCOUNTER → 2025-06-04 | Outpatient (CLI) | payer OTHER ==
[2025-06-04 11:21] LABS: Basophils # (A) 0.09 10*3/uL (0.00-0.10); Basophils % (A) 1.0 %; Eosinophils # (A) 0.15 10*3/uL (0.04-0.35); Eosinophils % (A) 1.7 %; HCT 49.5 % (39.6-50.0); HGB 16.8 g/dL (13.0-17.0); Lymphocytes # (A) 2.92 10*3/uL (0.90-5.00); Lymphocytes % (A) 32.7 %; MCH 31.3 pg (27.0-32.0); MCHC 33.9 g/dL (32.0-37.0); MCV 92.4 fL (80.0-97.0); Monocytes # (A) 0.76 10*3/uL (0.20-1.00); Monocytes % (A) 8.5 %; Neutrophils # (A) 5.00 10*3/uL (1.80-7.70); Neutrophils % (A) 55.9 %; Platelet Count 346 10*3/uL (140-440); RBC 5.36 10*6/uL (4.40-5.60); RDW 13.5 % (11.5-14.5); WBC 8.94 10*3/uL (4.50-10.00)
[2025-06-04 11:30] LABS: ALT 20 U/L (4-49); AST 30 U/L (17-59); African American GFR (CKD) >90 (>60 ml/min/1.73 sqM); Albumin 4.7 g/dL (3.5-5.0); Albumin/Globulin Ratio 1.5; Alkaline Phosphatase 101 U/L (38-126); Anion Gap 9 mmol/L; Blood Urea Nitrogen 14 mg/dL (9-20); Calcium 9.9 mg/dL (8.4-10.2); Carbon Dioxide 28 mmol/L (22-30); Chloride 101 mmol/L (98-107); Globulin 3.1 g/dL; Glucose 92 mg/dL (74-99); Non-African American GFR(CKD) 82 (>60 ml/min/1.73 sqM); Potassium 4.8 mmol/L (3.5-5.1); Sodium 138 mmol/L (137-145); Total Protein 7.8 g/dL (6.3-8.2)
--- NOTE | 2025-06-04 14:35 | CT ---
EXAMINATION TYPE: CT abdomen pelvis w con DATE OF EXAM: 06/04/2025 11:28 AM COMPARISON: 01/06/2025 CLINICAL INDICATION: Male, 60 years old with history of R10.9 UNSPECIFIED ABDOMINAL PAIN; abd pain TECHNIQUE: CT of the abdomen and pelvis after IV contrast. Delayed images through the kidneys and cor onal/sagittal reconstructions performed. Contrast used:100ml mL of Isovue 300 with IV Contrast, Oral contrast used: with Oral Contrast CT DLP: 466.6 mGycm, Automated exposure control for dose reduction was used. FINDINGS: LOWER CHEST: Hazy dependent atelectasis in the visualized lower lungs. No pleural effusion. ABDOMEN LIVER: Numerous contrast blush is along the periphery of the right liver lobe favored to represent va scular shunting. GALLBLADDER AND BILE DUCTS: Unremarkable. PANCREAS: Unremarkable. SPLEEN: Unremarkable. ADRENAL GLANDS: Unremarkable. KIDNEYS AND URETERS: 7 mm benign cortical cyst posterior upper pole right kidney and 6 mm anterior up per pole left kidney. Symmetric uptake and excretion of contrast on both sides. Extrarenal pelvis on both sides. PELVIS BLADDER: Urine distended. REPRODUCTIVE: There is funneling into the superior aspect of the prostate gland suspected to reflect prior TURP. Some nodularity extends into this area likely related to BPH. ABDOMEN & PELVIS STOMACH AND BOWEL: Stomach is partially contracted but seems to show moderate fold thickening and muc osal hyperemia. Prominent scattered small bowel loops measuring up to 2.8 cm ovoid oral contrast having reached the c ecum and no discrete transition point. No evidence of bowel obstruction. Segments of a normal appendi x are visualized. There is some tortuosity of the sigmoid colon making it difficult to follow as it c ourses to the rectum. PERITONEUM/RETROPERITONEUM: No evidence of pneumoperitoneum or free fluid. VASCULATURE: No evidence of aortic aneurysm. MUSCULOSKELETAL: No acute osseous abnormalities LYMPH NODES: No gross evidence for lymphadenopathy. SOFT TISSUE/ABDOMINAL WALL: Unremarkable IMPRESSION: 1. The stomach is collapsed but shows fold thickening and mucosal hyperemia. There are also prominen t small bowel loops throughout. Consider gastroenteritis. 2. Suspect prior TURP. Nodularity extending into the funneling at the base of the bladder may reflect progressive BPH. Correlate with PSA values. [facility], , 06/04/2025 2:33 PM
== END | disposition home or self-care (01) ==
LOC: RADCTMAIN 09:13
PROVIDERS: ATTEND Internal Medicine Gastroenterology
DX: K52.9 Noninfective gastroenteritis and colitis, unspecified (principal)
CPT/HCPCS: 80053; 85025; 74177; 36415; Q9967

== ENCOUNTER 2025-06-05 01:18 | Emergency (ER) | payer OTHER ==
[2025-06-05 01:23] VITALS: TEMP 97.6
[2025-06-05] MEDS: MORPHINE SULFATE 4 MG/ML SYRINGE IVP STA (02:44)
[2025-06-05] MEDS: SODIUM CHLORIDE 0.9% 1,000 ML IV ONE (02:45)
[2025-06-05 02:57] LABS: Basophils # (A) 0.09 10*3/uL (0.00-0.10); Basophils % (A) 0.8 %; Eosinophils # (A) 0.22 10*3/uL (0.04-0.35); Eosinophils % (A) 2.1 %; HCT 47.4 % (39.6-50.0); HGB 16.5 g/dL (13.0-17.0); Lymphocytes # (A) 2.94 10*3/uL (0.90-5.00); Lymphocytes % (A) 27.4 %; MCH 31.0 pg (27.0-32.0); MCHC 34.8 g/dL (32.0-37.0); MCV 89.1 fL (80.0-97.0); Monocytes # (A) 1.11 10*3/uL (0.20-1.00); Monocytes % (A) 10.4 %; Neutrophils # (A) 6.35 10*3/uL (1.80-7.70); Neutrophils % (A) 59.2 %; Platelet Count 333 10*3/uL (140-440); RBC 5.32 10*6/uL (4.40-5.60); RDW 13.3 % (11.5-14.5); WBC 10.72 10*3/uL (4.50-10.00)
[2025-06-05 03:22] LABS: ALT 20 U/L (4-49); AST 30 U/L (17-59); African American GFR (CKD) >90 (>60 ml/min/1.73 sqM); Albumin 4.2 g/dL (3.5-5.0); Alkaline Phosphatase 110 U/L (38-126); Anion Gap 8 mmol/L; Blood Urea Nitrogen 14 mg/dL (9-20); Calcium 10.5 mg/dL (8.4-10.2); Carbon Dioxide 26 mmol/L (22-30); Chloride 104 mmol/L (98-107); Glucose 98 mg/dL (74-99); Lipase 133 U/L (23-300); Non-African American GFR(CKD) 88 (>60 ml/min/1.73 sqM); Potassium 4.5 mmol/L (3.5-5.1); Sodium 138 mmol/L (137-145); Total Protein 7.2 g/dL (6.3-8.2)
[2025-06-05 03:33] VITALS: BP 119/70; PULSE 52; RESP 16
[2025-06-05 04:04] LABS: Amorphous Sediment,Urine Occasional /hpf; Bilirubin,Urine Negative (Negative); Blood,Urine Negative (Negative); Color,Urine Colorless; Glucose,Urine (UA) Negative (Negative); Ketones,Urine Negative (Negative); Leukocyte Esterase,Urine Negative (Negative); Mucus,Urine Rare /hpf; Nitrite,Urine Negative (Negative); PH, Urine 7.5 (5.0-8.0); Protein,Urine Negative (Negative); RBC,Urine 1 /hpf (0-5); Specific Gravity,Urine 1.011 (1.001-1.035); Squamous Epithelial Cell,Urine <1 /hpf (0-4); Urobilinogen,Urine <2.0 mg/dL (<2.0); WBC,Urine 3 /hpf (0-5)
--- NOTE | 2025-06-05 04:13 | ED ---
Abdominal Pain HPI - General Chief Complaint: Abdominal Pain Stated Complaint: Lower abd pain Time Seen by Provider: 06/05/25 01:25 Source: patient Mode of arrival: ambulatory - History of Present Illness Initial Comments: 60-year-old male presents emergency department with abdominal pain. Patient states that he started having lower abdominal pain earlier today and has not had a bowel movement in 3 days. Patient does take [place] at home. No history of bowel obstructions. Denies black or bloody stools. No fevers. Patient is following with Dr. Small in the outpatient setting. He just had a CAT scan yesterday morning which demonstrated gastroenteritis. He has a follow-up appointment today to discuss the results. States that he could not wait any longer to be evaluated. He did not take anything for symptoms at home. No fevers. No dysuria, hematuria or difficulty voiding. no other alleviating, precipitating roughing factors - Related Data Home Medications Medication Instructions Recorded Confirmed Tamsulosin HCl [Flomax] 0.4 mg PO BID 12/11/23 04/06/25 Gabapentin 600 mg PO TID 05/28/24 04/06/25 Apixaban [Eliquis] 5 mg PO BID 01/02/25 04/06/25 Dicyclomine HCl 10 mg PO TID PRN 01/02/25 04/06/25 Hydrocodone/Acetaminophen 1 tab PO Q8H PRN 01/02/25 04/06/25 [Hydrocodone/Acetaminophen 7.5-325] methocarbamoL [Robaxin-750] 750 mg PO TID PRN 01/02/25 04/06/25 Previous Rx's Medication Instructions Recorded Lidocaine 5% Patch [Lidoderm 5% 1 patch TOPICAL DAILY PRN #30 patch 05/05/24 Patch] Cephalexin [Keflex] 500 mg PO Q12HR 7 Days #14 cap 04/21/25 Dicyclomine [Bentyl] 20 mg PO TID #20 tablet 06/15/25 Simethicone [Gas-X] 125 mg PO Q6H PRN #30 capsule 06/15/25 Allergies Allergy/AdvReac Type Severity Reaction Status Date / Time latex Allergy Itching Verified 06/15/25 10:06 sulfamethoxazole Allergy "[place] Verified 06/15/25 10:06 [From Bactrim] Skin" trimethoprim [From Bactrim] Allergy "[place] Verified 06/15/25 10:06 Skin" Review of Systems ROS Statement: Those systems with pertinent positive or pertinent negative responses have been documented in the HPI. ROS Other: All systems not noted in ROS Statement are negative. Past Medical History Past Medical History: Deep Vein Thrombosis (DVT), GERD/Reflux, Prostate Disorder Additional Past Medical History / Comment(s): RIGHT SHOULDER PAIN. DIVERTICULITIS. Pain lower back and rt leg/hip. 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 History of Any Multi-Drug Resistant Organisms: MRSA Date of last positivie culture/infection: 11/19/1989 MDRO Source:: RIGHT CHIN AREA Past Surgical History: Orthopedic Surgery Additional Past Surgical History / Comment(s): LYPOMA RT BUTTOCKS/hip removed. COLONSCOPY WITH POLYP REMOVAL. RT ROTATOR CUFF SURGERY X 4-2018 neck surgery b 12/12, left leg surgery. Past Anesthesia/Blood Transfusion Reactions: No Reported Reaction Additional Past Anesthesia/Blood Transfusion Reaction / Comment(s): no blood tx hx Past Psychological History: No Psychological Hx Reported Smoking Status: Current every day smoker Past Alcohol Use History: Occasional Past Drug Use History: Marijuana - Past Family History Mother Family Medical History: Cancer General Exam General appearance: alert, in no apparent distress Head exam: Present: atraumatic, normocephalic, normal inspection Eye exam: Present: normal appearance, PERRL, EOMI. Absent: scleral icterus, conjunctival injection, periorbital swelling ENT exam: Present: normal exam, mucous membranes moist Neck exam: Present: normal inspection. Absent: tenderness, meningismus, lymphadenopathy Respiratory exam: Present: normal lung sounds bilaterally. Absent: respiratory distress, wheezes, rales, rhonchi, stridor Cardiovascular Exam: Present: regular rate, normal rhythm, normal heart sounds. Absent: systolic murmur, diastolic murmur, rubs, gallop, clicks GI/Abdominal exam: Present: soft, normal bowel sounds. Absent: distended, tenderness, guarding, rebound, rigid Extremities exam: Present: normal inspection, full ROM, normal capillary refill. Absent: tenderness, pedal edema, joint swelling, calf tenderness Back exam: Present: normal inspection Neurological exam: Present: alert, oriented X3, CN II-XII intact Psychiatric exam: Present: normal affect, normal mood Skin exam: Present: warm, dry, intact, normal color. Absent: rash Course Vital Signs 06/05/25 06/05/25 01:20 03:32 Temperature 97.6 F Pulse Rate 60 52 L Respiratory 17 16 Rate Blood Pressure 149/93 119/70 O2 Sat by Pulse 98 95 Oximetry Medical Decision Making - Medical Decision Making Was pt. sent in by a medical professional or institution (, PA, [facility], urgent care, hospital, or shelter...) When possible be specific @ -No Did you speak to anyone other than the patient for history (EMS, parent, family, police, friend...)? What history was obtained from this source @ -No Did you review nursing and triage notes (agree or disagree)? Why? @ -I reviewed and agree with nursing and triage notes Were old charts reviewed (outside hosp., previous admission, EMS record, old EKG, old radiological studies, urgent care reports/EKG's, shelter records)? Report findings @ -I reviewed the CAT scan that was done yesterday morning which demonstrates no acute process Differential Diagnosis (chest pain, altered mental status, abdominal pain women, abdominal pain men, vaginal bleeding, weakness, fever, dyspnea, syncope, headache, dizziness, GI bleed, back pain, seizure, CVA, palpatations, mental health, musculoskeletal)? @ -Differential Abdominal Pain Men: Appendicitis, cholecystitis, diverticulosis, ischemic bowel, pancreatitis, hepatitis, UTI, gastroenteritis, AAA, incarcerated hernia, bowel obstruction, constipation, inflammatory bowel, hepatitis, peptic ulcer disease, splenic infarction, perforated viscus, testicular torsion, this is not meant to be an all-inclusive list EKG interpreted by me (3pts min.). @ -Not done X-rays interpreted by me (1pt min.). @ -Yes which demonstrates no acute process CT interpreted by me (1pt min.). @ -None done U/S interpreted by me (1pt. min.). @ -None done What testing was considered but not performed or refused? (CT, X-rays, U/S, labs)? Why? @ -CAT scan however this was done What meds were considered but not given or refused? Why? @ -None Did you discuss the management of the patient with other professionals (professionals i.e. , PA, [facility], lab, RT, psych nurse, neonatal social worker, defence force senior officer, teacher, protective services officer, therapeutic case manager)? Give summary @ -No Was smoking cessation discussed for >3mins.? @ -No Was critical care preformed (if so, how long)? @ -No Were there social determinants of health that impacted care today? How? (Homelessness, low income, unemployed, alcoholism, drug addiction, transportation, low edu. Level, literacy, decrease access to med. care, skilled nursing, rehab)? @ -No Was there de-escalation of care discussed even if they declined (Discuss DNR or withdrawal of care, Hospice)? DNR status @ -No What co-morbidities impacted this encounter? (DM, HTN, Smoking, COPD, CAD, Cancer, CVA, ARF, Chemo, Hep., AIDS, mental health diagnosis, sleep apnea, morbid obesity)? @ -None Was patient admitted / discharged? Hospital course, mention meds given and route, prescriptions, significant lab abnormalities, going to OR and other pertinent info. @ -Upon arrival patient seen and evaluated in bed 12. Thorough history and physical exam was performed. Patient is asking for narcotic pain medications. I did inform him that this will worsen his constipation. Patient states he is aware that he wants it anyways because the pain is so bad. We did conduct laboratory studies and performed an x-ray. Results are discussed with the jessica ent. Patient will be given magnesium citrate to take at home. He is to follow with Dr. Small at his scheduled appointment today. Return for any new or worsening symptoms. Patient agreeable to plan he was discharged in stable condition Undiagnosed new problem with uncertain prognosis? @ -No Drug Therapy requiring intensive monitoring for toxicity (Heparin, Nitro, Insulin, Cardizem)? @ -No Were any procedures done? @ -No Diagnosis/symptom? @ -Acute abdominal pain, acute constipation Acute, or Chronic, or Acute on Chronic? @ -Acute Uncomplicated (without systemic symptoms) or Complicated (systemic symptoms)? @ -Complicated Side effects of treatment? @ -No Exacerbation, Progression, or Severe Exacerbation? @ -No Poses a threat to life or bodily function? How? (Chest pain, [place], MA, pneumonia, PE, COPD, DKA, ARF, appy, cholecystitis, CVA, Diverticulitis, Homicidal, Suicidal, threat to staff... and all critical care pts) @ -No - Lab Data Result diagrams: 06/05/25 02:44 06/05/25 02:44 Lab Results 06/05/25 06/05/25 06/05/25 Range/Units 02:44 02:44 02:44 WBC 10.72 H (4.50-10.00) 10*3/uL RBC 5.32 (4.40-5.60) 10*6/uL Hgb 16.5 (13.0-17.0) g/dL Hct 47.4 (39.6-50.0) % MCV 89.1 (80.0-97.0) fL MCH 31.0 (27.0-32.0) pg MCHC 34.8 (32.0-37.0) g/dL Plt Count 333 (140-440) 10*3/uL MPV 9.4 L (9.5-12.2) fL Immature Gran % (Auto) 0.1 % Neutrophils % 59.2 % Lymphocytes % 27.4 % Monocytes % 10.4 % Eosinophils % 2.1 % Basophils % 0.8 % Immature Gran # 0.01 (0.00-0.04) 10*3/uL Neutrophils # 6.35 (1.80-7.70) 10*3/uL Lymphocytes # 2.94 (0.90-5.00) 10*3/uL Monocytes # 1.11 H (0.20-1.00) 10*3/uL Eosinophils # 0.22 (0.04-0.35) 10*3/uL Basophils # 0.09 (0.00-0.10) 10*3/uL Sodium 138 (137-145) mmol/L Potassium 4.5 (3.5-5.1) mmol/L Chloride 104 (98-107) mmol/L Carbon Dioxide 26 (22-30) mmol/L Anion Gap 8 mmol/L BUN 14 (9-20) mg/dL Creatinine 0.94 (0.66-1.25) mg/dL Est GFR (CKD-EPI)AfAm >90 (>60 ml/min/1.73 sqM) Est GFR (CKD-EPI)NonAf 88 (>60 ml/min/1.73 sqM) Glucose 98 (74-99) mg/dL Plasma Lactic Acid Dc 1.1 (0.7-2.0) mmol/L Calcium 10.5 H (8.4-10.2) mg/dL Total Bilirubin 0.6 (0.2-1.3) mg/dL AST 30 (17-59) U/L ALT 20 (4-49) U/L Alkaline Phosphatase 110 (38-126) U/L Total Protein 7.2 (6.3-8.2) g/dL Albumin 4.2 (3.5-5.0) g/dL Lipase 133 (23-300) U/L Urine Color Urine Appearance (Clear) Urine pH (5.0-8.0) Ur Specific [place] (1.001-1.035) Urine Protein (Negative) Urine Glucose (UA) (Negative) Urine Ketones (Negative) Urine Blood (Negative) Urine Nitrite (Negative) Urine Bilirubin (Negative) Urine Urobilinogen (<2.0) mg/dL Ur Leukocyte Esterase (Negative) Urine RBC (0-5) /hpf Urine WBC (0-5) /hpf Ur Squamous Epith Cells (0-4) /hpf Amorphous Sediment (None) /hpf Urine Mucus (None) /hpf // Range/Units 02:48 WBC (4.50-10.00) 10*3/uL RBC (4.40-5.60) 10*6/uL Hgb (13.0-17.0) g/dL Hct (39.6-50.0) % MCV (80.0-97.0) fL MCH (27.0-32.0) pg MCHC (32.0-37.0) g/dL Plt Count (140-440) 10*3/uL MPV (9.5-12.2) fL Immature Gran % (Auto) % Neutrophils % % Lymphocytes % % Monocytes % % Eosinophils % % Basophils % % Immature Gran # (0.00-0.04) 10*3/uL Neutrophils # (1.80-7.70) 10*3/uL Lymphocytes # (0.90-5.00) 10*3/uL Monocytes # (0.20-1.00) 10*3/uL Eosinophils # (0.04-0.35) 10*3/uL Basophils # (0.00-0.10) 10*3/uL Sodium (137-145) mmol/L Potassium (3.5-5.1) mmol/L Chloride (98-107) mmol/L Carbon Dioxide (22-30) mmol/L Anion Gap mmol/L BUN (9-20) mg/dL Creatinine (0.66-1.25) mg/dL Est GFR (CKD-EPI)AfAm (>60 ml/min/1.73 sqM) Est GFR (CKD-EPI)NonAf (>60 ml/min/1.73 sqM) Glucose (74-99) mg/dL Plasma Lactic Acid Dc (0.7-2.0) mmol/L Calcium (8.4-10.2) mg/dL Total Bilirubin (0.2-1.3) mg/dL AST (17-59) U/L ALT (4-49) U/L Alkaline Phosphatase (38-126) U/L Total Protein (6.3-8.2) g/dL Albumin (3.5-5.0) g/dL Lipase (23-300) U/L Urine Color Colorless Urine Appearance Cloudy (Clear) Urine pH 7.5 (5.0-8.0) Ur Specific [place] 1.011 (1.001-1.035) Urine Protein Negative (Negative) Urine Glucose (UA) Negative (Negative) Urine Ketones Negative (Negative) Urine Blood Negative (Negative) Urine Nitrite Negative (Negative) Urine Bilirubin Negative (Negative) Urine Urobilinogen <2.0 (<2.0) mg/dL Ur Leukocyte Esterase Negative (Negative) Urine RBC 1 (0-5) /hpf Urine WBC 3 (0-5) /hpf Ur Squamous Epith Cells <1 (0-4) /hpf Amorphous Sediment Occasional H (None) /hpf Urine Mucus Rare H (None) /hpf Disposition Clinical Impression: Abdominal pain Disposition: HOME SELF-CARE Condition: Stable Instructions (If sedation given, give patient instructions): Abdominal Pain (ED) Additional Instructions: Drink half the bottle of the magnesium citrate. If you do not have a bowel movement in 4 hours, drink the second half. Follow-up with Dr. Small at your appointment today Is patient prescribed a controlled substance at d/c from ED?: No Referrals: Norris Cardona MD [Primary Care Provider] - 1-2 days Viviana Blanton MD [STAFF PHYSICIAN] - 1-2 days Time of Disposition: 04:12
[2025-06-05] MEDS: MAGNESIUM CITRATE 296 ML BOTTLE PO ONE (04:26)
--- NOTE | 2025-06-05 05:08 | XR ---
EXAM: XR Abdomen, 2 Views CLINICAL HISTORY: ITS.REASON XR Reason: abdominal pain TECHNIQUE: Frontal view of the abdomen/pelvis with upright view of the abdomen. COMPARISON: No relevant prior studies available. FINDINGS: Intraperitoneal space: No free air. Gastrointestinal tract: Contrast material outlines the colon extending from the mid transverse colon through the rectum. No dilation. Bones/joints: Degenerative changes are seen within the spine. No acute fracture. IMPRESSION: No acute findings in the abdomen or pelvis.
== END 2025-06-05 04:27 | disposition home or self-care (01) ==
LOC: EC 01:18
DX: R10.30 Lower abdominal pain, unspecified (principal); F17.200 Nicotine dependence, unspecified, uncomplicated; Z88.2 Allergy status to sulfonamides; Z91.040 Latex allergy status; Z88.1 Allergy status to other antibiotic agents
CPT/HCPCS: 36415; 80053; 83605; 83690; 85025; 81001; 74018; 99284; 96374; 96361; J2270

== ENCOUNTER 2025-06-15 10:00 | Emergency (ER) | payer OTHER ==
[2025-06-15 10:06] VITALS: BP 134/87; PULSE 60; RESP 20; TEMP 97.9
--- NOTE | 2025-06-15 10:25 | ED ---
Abdominal Pain HPI - General Chief Complaint: Abdominal Pain Stated Complaint: Lower abd pain Time Seen by Provider: 06/15/25 10:17 Source: patient, RN notes reviewed Mode of arrival: ambulatory Limitations: no limitations - History of Present Illness Initial Comments: This is a 60-year-old male with history including IBS, GERD, diverticulitis and DVT presenting for right/lower abdominal pain/cramping (08/28) has been worsening over the past 3 days. Patient states pain is intermittent that worsens with movement and positional changes. Patient states pain feels like "gas". Patient endorses associated nausea/vomiting, decreased appetite and general weakness. Patient states symptoms initially started following left knee surgery with subsequent superficial thrombophlebitis in March 2025. Patient states he has an appointment with Dr. Sanders later today but had to come to the ER due to the pain. Also endorses increased urinary frequency without dysuria or hematuria. States he has an appointment with Dr. Blanton in about 2 weeks. Patient endorses having an AP CT scan done about 10 days ago with no concerning findings. Endorses receiving Linzess and omeprazole with minimal relief. Denies fever, chills, chest pain, dyspnea, constipation hematemesis, hematochezia, melena. MD Complaint: abdominal pain Onset/Timin -: days(s) Location: RLQ Radiation: RUQ Migration to: no migration Severity scale (1-10): 10 Quality: cramping Consistency: intermittent Worsens With: movement Associated Symptoms: nausea, vomiting, constipation, anorexia Treatments Prior to Arrival: prescription analgesics - Related Data Home Medications Medication Instructions Recorded Confirmed Tamsulosin HCl [Flomax] 0.4 mg PO BID 12/11/23 04/06/25 Gabapentin 600 mg PO TID 05/28/24 04/06/25 Apixaban [Eliquis] 5 mg PO BID 01/02/25 04/06/25 Dicyclomine HCl 10 mg PO TID PRN 01/02/25 04/06/25 Hydrocodone/Acetaminophen 1 tab PO Q8H PRN 01/02/25 04/06/25 [Hydrocodone/Acetaminophen 7.5-325] methocarbamoL [Robaxin-750] 750 mg PO TID PRN 01/02/25 04/06/25 Previous Rx's Medication Instructions Recorded Lidocaine 5% Patch [Lidoderm 5% 1 patch TOPICAL DAILY PRN #30 patch 05/05/24 Patch] Cephalexin [Keflex] 500 mg PO Q12HR 7 Days #14 cap 04/21/25 Dicyclomine [Bentyl] 20 mg PO TID #20 tablet 06/15/25 Simethicone [Gas-X] 125 mg PO Q6H PRN #30 capsule 06/15/25 Allergies Allergy/AdvReac Type Severity Reaction Status Date / Time latex Allergy Itching Verified 06/15/25 10:06 sulfamethoxazole Allergy "Greco Verified 06/15/25 10:06 [From Bactrim] Skin" trimethoprim [From Bactrim] Allergy "Greco Verified 06/15/25 10:06 Skin" Review of Systems ROS Statement: Those systems with pertinent positive or pertinent negative responses have been documented in the HPI. ROS Other: All systems not noted in ROS Statement are negative. Past Medical History Past Medical History: Deep Vein Thrombosis (DVT), GERD/Reflux, Prostate Disorder Additional Past Medical History / Comment(s): RIGHT SHOULDER PAIN. DIVERTICULITIS. Pain lower back and rt leg/hip. 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 History of Any Multi-Drug Resistant Organisms: MRSA Date of last positivie culture/infection: 11/19/1989 MDRO Source:: RIGHT CHIN AREA Past Surgical History: Orthopedic Surgery Additional Past Surgical History / Comment(s): LYPOMA RT BUTTOCKS/hip removed. COLONSCOPY WITH POLYP REMOVAL. RT ROTATOR CUFF SURGERY X 4-2018 neck surgery dec 20, left leg surgery. Past Anesthesia/Blood Transfusion Reactions: No Reported Reaction Additional Past Anesthesia/Blood Transfusion Reaction / Comment(s): no blood tx hx Past Psychological History: No Psychological Hx Reported Smoking Status: Current every day smoker Past Alcohol Use History: Occasional Past Drug Use History: Marijuana - Past Family History Mother Family Medical History: Cancer General Exam Limitations: no limitations General appearance: alert, in no apparent distress Head exam: Present: atraumatic, normocephalic, normal inspection Eye exam: Present: normal appearance, PERRL, EOMI. Absent: scleral icterus, conjunctival injection, periorbital swelling ENT exam: Present: normal exam, mucous membranes moist Neck exam: Present: normal inspection. Absent: tenderness, meningismus, lymphadenopathy Respiratory exam: Present: normal lung sounds bilaterally. Absent: respiratory distress, wheezes, rales, rhonchi, stridor, accessory muscle use Cardiovascular Exam: Present: regular rate, normal rhythm, normal heart sounds. Absent: systolic murmur, diastolic murmur, rubs, gallop, clicks GI/Abdominal exam: Present: soft, tenderness (RLQ, RUQ and periumbilical TTP with voluntary guarding. Negative Pompa sign, Rovsing sign), guarding, hyperactive bowel sounds. Absent: distended, rebound, rigid Extremities exam: Present: normal inspection, full ROM, normal capillary refill. Absent: tenderness, pedal edema, joint swelling, calf tenderness Back exam: Present: CVA tenderness (R). Absent: CVA tenderness (L) Neurological exam: Present: alert, oriented X3, CN II-XII intact Psychiatric exam: Present: normal affect, normal mood Skin exam: Present: warm, dry, intact, normal color. Absent: rash Course Vital Signs 06/15/25 10:03 Temperature 97.9 F Pulse Rate 60 Respiratory 20 Rate Blood Pressure 134/87 O2 Sat by Pulse 97 Oximetry Medical Decision Making - Medical Decision Making Was pt. sent in by a medical professional or institution (CAMILLA Tyler, TRACTOR TRAILER TECHNICIAN, urgent care, hospital, or alf...) When possible be specific @ -[No] Did you speak to anyone other than the patient for history (EMS, parent, family, police, friend...)? What history was obtained from this source @ -[No] Did you review nursing and triage notes (agree or disagree)? Why? @ -[I reviewed and agree with nursing and triage notes] Were old charts reviewed (outside hosp., previous admission, EMS record, old EKG, old radiological studies, urgent care reports/EKG's, alf records)? Report findings @ -ER visit from 06/05/2025 reviewed with no concerning findings following lab work and KUB patient treated for constipation. AP CT from 06/04/2025 reveals gastroenteritis with no other concerning findings. Differential Diagnosis (chest pain, altered mental status, abdominal pain women, abdominal pain men, vaginal bleeding, weakness, fever, dyspnea, syncope, headache, dizziness, GI bleed, back pain, seizure, CVA, palpatations, mental health, musculoskeletal)? @ -Differential Abdominal Pain Men: Appendicitis, cholecystitis, diverticulosis, ischemic bowel, pancreatitis, hepatitis, UTI, gastroenteritis, AAA, incarcerated hernia, bowel obstruction, constipation, inflammatory bowel, hepatitis, peptic ulcer disease, splenic infarction, perforated viscus, testicular torsion, this is not meant to be an all-inclusive list EKG interpreted by me (3pts min.). @ -Not done X-rays interpreted by me (1pt min.). @ -[None done] CT interpreted by me (1pt min.). @ -[None done] U/S interpreted by me (1pt. min.). @ -[None done] What testing was considered but not performed or refused? (CT, X-rays, U/S, labs)? Why? @ -[None] What meds were considered but not given or refused? Why? @ -Declined IM Bentyl. Would prefer p.o. Did you discuss the management of the patient with other professionals (abimbola alonso isera Tyler, PA, TRACTOR TRAILER TECHNICIAN, lab, RT, psych nurse, pole frame construction worker, credit charge authorizer, teacher, chief administrative officer, medical case manager)? Give summary @ -[No] Was smoking cessation discussed for >3mins.? @ -[No] Was critical care preformed (if so, how long)? @ -[No] Were there social determinants of health that impacted care today? How? (Homelessness, low income, unemployed, alcoholism, drug addiction, transportation, low edu. Level, literacy, decrease access to med. care, half-way, rehab)? @ -[No] Was there de-escalation of care discussed even if they declined (Discuss DNR or withdrawal of care, Hospice)? DNR status @ -[No] What co-morbidities impacted this encounter? (DM, HTN, Smoking, COPD, CAD, Cancer, CVA, ARF, Chemo, Hep., AIDS, mental health diagnosis, sleep apnea, morbid obesity)? @ -[None] Was patient admitted / discharged? Hospital course, mention meds given and route, prescriptions, significant lab abnormalities, going to OR and other pertinent info. @ -[hospital course] Undiagnosed new problem with uncertain prognosis? @ -[No] Drug Therapy requiring intensive monitoring for toxicity (Heparin, Nitro, I nsulin, Cardizem)? @ -[No] Were any procedures done? @ -[No] Diagnosis/symptom? @ -[default] Acute, or Chronic, or Acute on Chronic? @ -Acute Uncomplicated (without systemic symptoms) or Complicated (systemic symptoms)? @ -Uncomplicated Side effects of treatment? @ -[No] Exacerbation, Progression, or Severe Exacerbation? @ -[No] Poses a threat to life or bodily function? How? (Chest pain, USA, ND, pneumonia, PE, COPD, DKA, ARF, appy, cholecystitis, CVA, Diverticulitis, Homicidal, Suicidal, threat to staff... and all critical care pts) @ -[No] - Lab Data Result diagrams: 06/15/25 10:44 06/15/25 11:33 Lab Results 06/15/25 06/15/25 06/15/25 Range/Units 10:44 10:44 11:33 WBC 8.61 (4.50-10.00) 10*3/uL RBC 5.37 (4.40-5.60) 10*6/uL Hgb 16.8 (13.0-17.0) g/dL Hct 47.7 (39.6-50.0) % MCV 88.8 (80.0-97.0) fL MCH 31.3 (27.0-32.0) pg MCHC 35.2 (32.0-37.0) g/dL Plt Count 301 (140-440) 10*3/uL MPV 9.8 (9.5-12.2) fL Immature Gran % (Auto) 0.2 % Neutrophils % 55.7 % Lymphocytes % 33.2 % Monocytes % 8.7 % Eosinophils % 1.2 % Basophils % 1.0 % Immature Gran # 0.02 (0.00-0.04) 10*3/uL Neutrophils # 4.79 (1.80-7.70) 10*3/uL Lymphocytes # 2.86 (0.90-5.00) 10*3/uL Monocytes # 0.75 (0.20-1.00) 10*3/uL Eosinophils # 0.10 (0.04-0.35) 10*3/uL Basophils # 0.09 (0.00-0.10) 10*3/uL Sodium 139 (137-145) mmol/L Potassium 5.4 H (3.5-5.1) mmol/L Chloride 104 (98-107) mmol/L Carbon Dioxide 24 (22-30) mmol/L Anion Gap 11 mmol/L BUN 15 (9-20) mg/dL Creatinine 0.91 (0.66-1.25) mg/dL Est GFR (CKD-EPI)AfAm >90 (>60 ml/min/1.73 sqM) Est GFR (CKD-EPI)NonAf >90 (>60 ml/min/1.73 sqM) Glucose 97 (74-99) mg/dL Plasma Lactic Acid Dc 1.1 (0.7-2.0) mmol/L Calcium 10.0 (8.4-10.2) mg/dL Total Bilirubin 1.3 (0.2-1.3) mg/dL AST 33 (17-59) U/L ALT 22 (4-49) U/L Alkaline Phosphatase 95 (38-126) U/L Total Protein 9.2 H (6.3-8.2) g/dL Albumin 5.2 H (3.5-5.0) g/dL Lipase 49 (23-300) U/L Disposition Clinical Impression: Abdominal pain of unknown etiology Disposition: HOME SELF-CARE Condition: Fair Instructions (If sedation given, give patient instructions): Abdominal Pain (ED) Additional Instructions: Bananas, rice, applesauce, tea, toast. Ana Maria tea/norma for nausea. Follow-up with PCP/gastroenterology for ongoing evaluation and management of abdominal pain. Prescriptions: Dicyclomine [Bentyl] 20 mg PO TID #20 tablet Simethicone [Gas-X] 125 mg PO Q6H PRN #30 capsule PRN Reason: Abdominal Distention Is patient prescribed a controlled substance at d/c from ED?: No Referrals: Norris Cardona MD [Primary Care Provider] - 1-2 days Viviana Blanton MD [STAFF PHYSICIAN] - 1-2 days Time of Disposition: 12:45
[2025-06-15] MEDS: SODIUM CHLORIDE 0.9% 1,000 ML IV ONE (10:39)
[2025-06-15] MEDS: HYDROmorphone 1 MG/ML 1 ML SYRINGE IVP STA (10:40)
[2025-06-15 10:51] LABS: Basophils # (A) 0.09 10*3/uL (0.00-0.10); Basophils % (A) 1.0 %; Eosinophils # (A) 0.10 10*3/uL (0.04-0.35); Eosinophils % (A) 1.2 %; HCT 47.7 % (39.6-50.0); HGB 16.8 g/dL (13.0-17.0); Lymphocytes # (A) 2.86 10*3/uL (0.90-5.00); Lymphocytes % (A) 33.2 %; MCH 31.3 pg (27.0-32.0); MCHC 35.2 g/dL (32.0-37.0); MCV 88.8 fL (80.0-97.0); Monocytes # (A) 0.75 10*3/uL (0.20-1.00); Monocytes % (A) 8.7 %; Neutrophils # (A) 4.79 10*3/uL (1.80-7.70); Neutrophils % (A) 55.7 %; Platelet Count 301 10*3/uL (140-440); RBC 5.37 10*6/uL (4.40-5.60); RDW 13.1 % (11.5-14.5); WBC 8.61 10*3/uL (4.50-10.00)
--- NOTE | 2025-06-15 10:58 | XR ---
EXAMINATION TYPE: XR KUB DATE OF EXAM: 06/15/2025 COMPARISON: CT abdomen and pelvis 06/04/2025, KUB radiograph 06/05/2025 HISTORY: Pain TECHNIQUE: Single upright KUB image of the abdomen is obtained FINDINGS: Small bowel demonstrates no evidence for dilatation. Gas and fecal material is seen in non-distended colon. No convincing evidence for pneumoperitoneum. No unusual calcifications. The lung bases are clear. The osseous structures are intact. IMPRESSION: Overall nonobstructive bowel gas pattern. [facility], , 06/15/2025 10:55 AM
[2025-06-15] MEDS: DICYCLOMINE 10 MG/ML 2 ML AMP IM STA (11:33)
[2025-06-15] MEDS: DICYCLOMINE 20 MG TAB PO STA (11:45)
[2025-06-15 11:50] LABS: ALT 22 U/L (4-49); African American GFR (CKD) >90 (>60 ml/min/1.73 sqM); Anion Gap 11 mmol/L; Blood Urea Nitrogen 15 mg/dL (9-20); Calcium 10.0 mg/dL (8.4-10.2); Carbon Dioxide 24 mmol/L (22-30); Chloride 104 mmol/L (98-107); Glucose 97 mg/dL (74-99); Lipase 49 U/L (23-300); Non-African American GFR(CKD) >90 (>60 ml/min/1.73 sqM); Sodium 139 mmol/L (137-145); Total Protein 9.2 g/dL (6.3-8.2)
[2025-06-15 11:51] LABS: AST 33 U/L (17-59); Albumin 5.2 g/dL (3.5-5.0); Alkaline Phosphatase 95 U/L (38-126); Potassium 5.4 mmol/L (3.5-5.1)
[2025-06-15] MEDS: ONDANSETRON 4 MG ODT STARTER PACK TAB BTL PO STA (12:32)
[2025-06-15] MEDS: SODIUM ZIRCONIUM CYCLOSILICATE 10 GM PACKET PO ONE (12:33)
[2025-06-15 12:51] LABS: Bilirubin,Urine Negative (Negative); Blood,Urine Negative (Negative); Color,Urine Light Yellow; Glucose,Urine (UA) Negative (Negative); Ketones,Urine Negative (Negative); Leukocyte Esterase,Urine Negative (Negative); Nitrite,Urine Negative (Negative); PH, Urine 7.5 (5.0-8.0); Protein,Urine Negative (Negative); Specific Gravity,Urine 1.012 (1.001-1.035); Urobilinogen,Urine <2.0 mg/dL (<2.0)
== END 2025-06-15 12:38 | disposition home or self-care (01) ==
LOC: EC 10:00
DX: R10.31 Right lower quadrant pain (principal); F17.200 Nicotine dependence, unspecified, uncomplicated; Z88.1 Allergy status to other antibiotic agents; Z88.2 Allergy status to sulfonamides; Z91.040 Latex allergy status
CPT/HCPCS: 36415; 80053; 83605; 83690; 85025; 81003; 74018; 99284; 96374; 96361; J1171; S0119